=== PATIENT | female | born 1990 | race Caucasian/White ===

== ENCOUNTER 2020-12-25 21:13 | Emergency (ER) | payer OTHER, SELFPAY ==
--- NOTE | ~2020-12-25 | CT_ITS ---
EXAMINATION: CT ABDOMEN AND PELVIS WITH CONTRAST CLINICAL INFORMATION: Abdominal pain and mucus stools. COMPARISON: None TECHNIQUE: Multidetector volumetric images were obtained from the superior aspect of the liver through the pubic symphysis following administration 85 mL of Omnipaque 350 intravenous contrast. Sagittal and coronal reformatted images were obtained on the technologist's workstation. Oral contrast: No This CT examination was performed using dose optimization techniques as appropriate, variously including the following: *Automated exposure control *Adjustment of mA and/or kV according to patient size (this includes techniques or standardized protocols for targeted exams where dose is matched to indication/reason for exam; i.e. extremities or head) *Use of iterative reconstruction technique DLP: 587 mGy-cm FINDINGS: LUNG BASES: The visualized lung bases are unremarkable. LIVER, GALLBLADDER, AND BILIARY TREE: The liver is normal in size, shape, and attenuation. No focal hepatic lesion or biliary ductal dilatation is present. The gallbladder is unremarkable with no evidence of radiopaque gallstones, gallbladder wall thickening, or obvious pericholecystic inflammatory changes. PANCREAS: Unremarkable. SPLEEN: Unremarkable. ADRENAL GLANDS: Unremarkable. KIDNEYS AND URETERS: The kidneys are normal in size, shape, and attenuation. No hydronephrosis, hydroureter, or calculi seen. No perinephric stranding. BLADDER: Unremarkable. GASTROINTESTINAL TRACT: The small and large bowel are unremarkable. The appendix is unremarkable. ABDOMINAL WALL: Small fat-containing umbilical hernia. LYMPH NODES: Normal. VASCULAR: Unremarkable. PELVIC VISCERA: Uterus and adnexa unremarkable. OSSEOUS STRUCTURES: Unremarkable. CT/CT abdomen pelvis w con IMPRESSION: No significant abnormality.
[2020-12-25 21:32] VITALS: BP 152/80; PULSE 114; RESP 18; TEMP 37.2; O2SAT 99; BMI 33.6
--- NOTE | 2020-12-25 23:05 | ED.ANXIETY ---
HPI - Anxiety General Chief Complaint: Anxiety Stated Complaint: Anxiety Time Seen by Provider: 12/25/20 22:55 Source: patient and family Mode of arrival: ambulatory Limitations: no limitations History of Present Illness MD complaint: anxiety and other (vomiting, mucousy stools) Onset (ago): day(s) (1) Symptoms: other (anxiety, panic attacks, vomiting) Severity: moderate Quality: intermittent Place: home History of similar episodes: Yes Provoking factors: emotional stress Relieving factors: nothing Exacerbating factors: thinking about event Associated symptoms: diaphoresis and nausea/vomiting Related Data Home Medications Medication Instructions Recorded Confirmed alcohol swabs 0 pad TOPICAL DIRECTED 08/31/20 citalopram 40 mg tablet 40 mg PO DAILY 08/31/20 famotidine 20 mg tablet 20 mg PO DAILY 08/31/20 fluticasone propionate 50 1 spray INTRANASAL DAILY 08/31/20 mcg/actuation nasal spray,suspension lorazepam 1 mg tablet 1 mg PO DAILY PRN 08/31/20 needle (disp) 18 G 18 gauge x 1 #1000 08/31/20 1/2 needle (disp) 22 G 22 gauge x 1 #1000 08/31/20 12 needle (disp) 25 gauge 25 gauge x #1000 08/31/20 5/8 prednisone 20 mg tablet 20 mg PO BID 08/31/20 sodium chloride 0.65 % nasal spray 2 spray INTRANASAL Q3H 08/31/20 aerosol syringe (disposable) 1 mL #1000 08/31/20 testosterone cypionate 200 mg/mL 100 mg TOPICAL QWEEK 08/31/20 intramuscular oil Previous Rx's Medication Instructions Recorded polyethylene glycol 3350 17 gram 17 g PO DAILY PRN 30 Days #30 08/31/20 oral powder packet (Miralax) Allergies Allergy/AdvReac Type Severity Reaction Status Date / Time No Known Allergies Allergy Verified 12/25/20 21:32 Review of Systems Review of Systems: Constitutional : No Weight loss, No Fever, No Chills ENT/Mouth : No sore throat, No Rhinorrhea Eyes: No Swelling, No Redness Cardiovascular : No Chest Pain, No SOB, NoEdema Respiratory : No Cough, No Sputum, No Wheezing Gastrointestinal : Positive Nausea, Positive Vomiting, positive Diarrhea, no abdominal Pain, No Hematochezia, No Melena, pos mucousy stools Genitourinary : No Dysuria, No Urinary Frequency, No Hematuria, No Urgency Musculoskeletal : No joint pain, No Myalgias, No Joint Swelling Skin : No Skin Lesions, No rash Neuro : No Weakness, No Numbness, No Dizziness, No Headache Psych : No Anxiety/Panic, No Depression Heme/Lymph: No Bruising, No Lymphadenopathy Endocrine : No Polyuria, No Polydipsia All other systems reviewed and are negative. [facility] Past Medical History Attestation statement: The following information was validated with the patient. Medical History Anxiety Asperger syndrome Depression Social History Social History Housing: House Alcohol intake: never Patient Tobacco Use Status: Never used Tobacco Use of substances other than those prescribed or required for medical reasons: Yes Substance Use Type: Marijuana Substance Use Frequency: Daily Last Used Substance: Just Prior to Admission Advance Directives: No Advance Directives Information Provided: Yes Patient : No Current occupational status: unemployed Physical Exam Vital Signs: Vital Signs: Last Vital Signs Temp 98.9 F 12/26/20 00:00 Pulse 98 12/26/20 00:00 Resp 16 12/26/20 00:00 BP 129/59 L 12/26/20 00:00 Pulse Ox 99 12/26/20 00:00 Body Mass Index 33.6 Appearance: Alert. Oriented X3. No acute distress. Eyes: Pupils equal, round and reactive to light. ENT: Pharynx normal. Neck: Normal inspection. Neck supple. CVS: Normal heart rate and rhythm. Pulses normal. Respiratory: No respiratory distress. Breath sounds normal. Abdomen: Soft and non-tender. Rectal: small fissure no bleeding noted Skin: Skin warm and dry. Normal skin color. Normal skin turgor. Extremities: No lower extremity edema. No calf ttp Neuro: Oriented X 3. No motor deficit. No sensory deficit. Course Course Course Narrative: signed out to Dr. Maki pending images H/H stable MDM - Anxiety MDM Narrative Medical decision making narrative: 30 yo male with anxiety and has appointment in January for colonoscopy given chronic complaints of mucousy stools and rectal prolapse - at this time has severe anxiety causing n/v this is not unusual for the patient. At this time labs, IVF, IV ativan for anxiety. If no improvement will refer to crisis team for possible anxiety Lab Data Result diagrams: 12/25/20 23:49 12/25/20 23:49 Labs: Lab Results 12/25/20 12/25/20 12/25/20 Range/Units 23:49 23:49 23:49 WBC 13.4 H (4.8-10.8) X10*3/uL RBC 5.27 (4.20-5.50) X10*6/uL Hgb 16.1 H (12.0-16.0) g/dl Hct 46.0 (37-47) % MCV 87.3 (80-98) fL MCH 30.6 (27.0-33.0) pg MCHC 35.0 (31.0-35.0) g/dl RDW 12.7 (11.0-16.0) % Plt Count 280 (160-400) X10*3/uL MPV 9.5 (9.4-12.3) fL Immature Gran % (Auto) 0.3 (0.0-0.4) % Neut % (Auto) 81.7 H (45-73) % Lymph % (Auto) 9.6 L (20-40) % [place] % (Auto) 8.2 (2-11) % Eos % (Auto) 0.0 (0-4) % Baso % (Auto) 0.2 (0-2) % Lymph # (Auto) 1.3 (1.2-4.9) X10*3/uL [place] # (Auto) 1.1 (0.1-1.2) X10*3/uL Eos # (Auto) 0.0 (0.0-0.4) X10*3/uL Baso # (Auto) 0.0 (0.0-0.2) X10*3/uL Abs Immat Gran (auto) 0.04 H (0.00-0.03) X10*3/uL Absolute Neuts (auto) 10.9 H (2.0-8.3) X10*3/uL Absolute Nucleated RBC 0.000 (0.0-0.012) X10*3/uL Nucleated RBC % (auto) 0.0 (0.0-0.2) /100WBC Sodium 140 (135-145) mmol/L Potassium 3.9 (3.3-5.1) mmol/L Chloride 105 (96-108) mmol/L Carbon Dioxide 25 (22-29) mmol/L Anion Gap 14 (12-20) BUN 9 (9-16) mg/dL Creatinine 0.88 (0.5-1.4) mg/dL Estim Creat Clear Calc 98.1 Estimated GFR > 60 Random Glucose 95 (60-115) mg/dL Calcium 10.0 (8.4-10.2) mg/dL Magnesium 1.9 (1.6-2.6) mg/dL Total Bilirubin 0.8 (0.0-1.0) mg/dL Direct Bilirubin 0.2 (0.0-0.5) mg/dL AST 22 (5-31) U/L ALT 14 (0-31) U/L Alkaline Phosphatase 88 (39-117) U/L C-Reactive Protein 0.32 (< or = 0.50) mg/dL Total Protein 7.2 (6.5-8.0) g/dL Albumin 4.3 (3.5-5.0) g/dL Lipase 44 (8-78) U/L Urine Color Urine Appearance Urine pH (5.0-8.0) Ur Specific [place] (1.005-1.025) Urine Protein (NEG-TRACE) MG/DL Urine Glucose (UA) (NEG) MG/DL Urine Ketones (NEG) MG/DL Urine Blood (NEG) Urine Nitrite (NEG) Ur Leukocyte Esterase (NEG) Urine RBC (0) /HPF Urine WBC (0-4) /HPF Ur Squamous Epith Cells /LPF Urine Bacteria /LPF Urine Mucus /LPF Stool Occult Blood POSITIVE (NEGATIVE) COVID-19 (MARCUS) (Negative) COVID-19 Clin Com 12/26/20 12/26/20 Range/Units 00:11 01:11 WBC (4.8-10.8) X10*3/uL RBC (4.20-5.50) X10*6/uL Hgb (12.0-16.0) g/dl Hct (37-47) % MCV (80-98) fL MCH (27.0-33.0) pg MCHC (31.0-35.0) g/dl RDW (11.0-16.0) % Plt Count (160-400) X10*3/uL MPV (9.4-12.3) fL Immature Gran % (Auto) (0.0-0.4) % Neut % (Auto) (45-73) % Lymph % (Auto) (20-40) % [place] % (Auto) (2-11) % Eos % (Auto) (0-4) % Baso % (Auto) (0-2) % Lymph # (Auto) (1.2-4.9) X10*3/uL [place] # (Auto) (0.1-1.2) X10*3/uL Eos # (Auto) (0.0-0.4) X10*3/uL Baso # (Auto) (0.0-0.2) X10*3/uL Abs Immat Gran (auto) (0.00-0.03) X10*3/uL Absolute Neuts (auto) (2.0-8.3) X10*3/uL Absolute Nucleated RBC (0.0-0.012) X10*3/uL Nucleated RBC % (auto) (0.0-0.2) /100WBC Sodium (135-145) mmol/L Potassium (3.3-5.1) mmol/L Chloride (96-108) mmol/L Carbon Dioxide (22-29) mmol/L Anion Gap (12-20) BUN (9-16) mg/dL Creatinine (0.5-1.4) mg/dL Estim Creat Clear Calc Estimated GFR Random Glucose (60-115) mg/dL Calcium (8.4-10.2) mg/dL Magnesium (1.6-2.6) mg/dL Total Bilirubin (0.0-1.0) mg/dL Direct Bilirubin (0.0-0.5) mg/dL AST (5-31) U/L ALT (0-31) U/L Alkaline Phosphatase (39-117) U/L C-Reactive Protein (< or = 0.50) mg/dL Total Protein (6.5-8.0) g/dL Albumin (3.5-5.0) g/dL Lipase (8-78) U/L Urine Color YELLOW Urine Appearance HAZY Urine pH >= 9.0 H (5.0-8.0) Ur Specific [place] 1.010 (1.005-1.025) Urine Protein 2+ H (NEG-TRACE) MG/DL Urine Glucose (UA) NEG (NEG) MG/DL Urine Ketones 15 (NEG) MG/DL Urine Blood NEG (NEG) Urine Nitrite NEG (NEG) Ur Leukocyte Esterase 1+ H (NEG) Urine RBC 0-2 (0) /HPF Urine WBC 15-29 H (0-4) /HPF Ur Squamous Epith Cells 2+ /LPF Urine Bacteria 2+ /LPF Urine Mucus 1+ /LPF Stool Occult Blood (NEGATIVE) COVID-19 (MARCUS) Negative (Negative) COVID-19 Clin Com See Note Discharge Plan Discharge Clinical Impression: Anxiety Vomiting Qualifiers: Vomiting type: unspecified Vomiting Intractability: non-intractable Nausea presence: with nausea Qualified Code(s): R11.2 - Nausea with vomiting, unspecified Prescriptions: No Action citalopram 40 mg tablet 40 mg PO DAILY RF: 0 testosterone cypionate 200 mg/mL oil 100 mg topical QWEEK RF: 0 (DME) BD Regular [place] 18 gauge x 1 1/2 needle See Rx Instructions ea .ROUTE .MEDSUPPLY Qty: 1000 RF: 0 (DME) BD Regular [place] 25 gauge x 5/8 needle See Rx Instructions ea .ROUTE .MEDSUPPLY Qty: 1000 RF: 0 (DME) BD Luer-Kathya Syringe 1 mL syringe See Rx Instructions ea .ROUTE DIRECTED Qty: 1000 RF: 0 lorazepam 1 mg tablet 1 mg PO DAILY PRNRF: 0 alcohol swabs Pads, Medicated 0 pad topical DIRECTED RF: 0 fluticasone propionate 50 mcg/actuation spray,suspension 1 spray intranasal DAILY RF: 0 famotidine 20 mg tablet 20 mg PO DAILY RF: 0 (DME) BD Regular [place] 22 gauge x 1 1/2 needle See Rx Instructions ea IM DIRECTED Qty: 1000 RF: 0 sodium chloride 0.65 % aerosol,spray 2 spray intranasal Q3H RF: 0 prednisone 20 mg tablet 20 mg PO BID RF: 0 polyethylene glycol 3350 [Miralax] 17 gram powder in packet 17 g PO DAILY PRN (Reason: constipation) 30 Days Qty: 30 RF: 1
[2020-12-26] VITALS: BP 129/59; PULSE 98; RESP 16; TEMP 37.2; O2SAT 99
[2020-12-26 00:03] LABS: MANUAL DIFF FLAG NO
[2020-12-26 00:05] LABS: Basophils Percent Auto 0.2 % (0-2); Hemoglobin 16.1 g/dl (12.0-16.0); Imm Gran Abs Auto 0.04 X10*3/uL (0.00-0.03); Imm Gran Pct Auto 0.3 % (0.0-0.4); Lymphocytes Absolute Auto 1.3 X10*3/uL (1.2-4.9); Lymphocytes Percent Auto 9.6 % (20-40); Mean Corpuscular Hemoglobin 30.6 pg (27.0-33.0); Mean Corpuscular Volume 87.3 fL (80-98); Mean Platelet Volume 9.5 fL (9.4-12.3); Monocytes Absolute Auto 1.1 X10*3/uL (0.1-1.2); Monocytes Percent Auto 8.2 % (2-11); Neutrophils Absolute Auto 10.9 X10*3/uL (2.0-8.3); Neutrophils Percent Auto 81.7 % (45-73); Platelet Count 280 X10*3/uL (160-400); Red Blood Count 5.27 X10*6/uL (4.20-5.50); Red Cell Distribution Width 12.7 % (11.0-16.0); White Blood Count 13.4 X10*3/uL (4.8-10.8)
[2020-12-26] MEDS: 0.9 % Sodium Chloride 1,000 ML 999 ML IVCONT (00:08)
[2020-12-26] MEDS: ondansetron HCL 4 MG/2 ML VIAL IVPUSH (00:08)
[2020-12-26] MEDS: LORazepam 2 MG/ML VIAL 1 MG IVPUSH (00:08)
[2020-12-26 00:21] LABS: OBS Int Ctl Valid YES; OBS1 POSITIVE (NEGATIVE)
[2020-12-26 00:41] LABS: Alanine Aminotransferase 14 U/L (0-31); Albumin Level 4.3 g/dL (3.5-5.0); Alkaline Phosphatase 88 U/L (39-117); Anion Gap 14 (12-20); Aspartate Amino Transferase 22 U/L (5-31); Bilirubin Direct 0.2 mg/dL (0.0-0.5); Bilirubin Total 0.8 mg/dL (0.0-1.0); Blood Urea Nitrogen 9 mg/dL (9-16); C Reactive Protein 0.32 mg/dL (< or = 0.50); Carbon Dioxide 25 mmol/L (22-29); Chloride 105 mmol/L (96-108); Creatinine Clr Calc Pharmacy 98.1; Estimated Glomerular Filt Rate > 60; Glucose Random 95 mg/dL (60-115); Lipase 44 U/L (8-78); Magnesium 1.9 mg/dL (1.6-2.6); Potassium 3.9 mmol/L (3.3-5.1); Sodium 140 mmol/L (135-145); Total Protein 7.2 g/dL (6.5-8.0)
[2020-12-26 00:42] LABS: COVID-19 Test Negative (Negative)
[2020-12-26 01:18] LABS: Appearance Urine HAZY; Color Urine YELLOW; Glucose Urine UA NEG (NEG); Leukocyte Esterase Urine 1+ (NEG); Nitrite Urine NEG (NEG); PH >= 9.0 (5.0-8.0); UACC Culture Trigger YES; Urine Blood NEG (NEG); Urine Ketones 15 MG/DL (NEG)
[2020-12-26 01:19] LABS: Urine Protein 2+ MG/DL (NEG-TRACE)
[2020-12-26 01:43] LABS: Bacteria Urine 2+ /LPF; Mucus Urine 1+ /LPF; RBC Urine 0-2 /HPF (0); Squamous Epithelial Cell Urine 2+ /LPF
[2020-12-26] MEDS: iohexoL 350 MG/ML 100 ML INFUS..BTL 85 ML IV (02:13)
[2020-12-26] MEDS: Magnesium Hydrox/Alum Hydrox 30 ML ORAL.SUSP 15 ML PO (02:16)
[2020-12-26] MEDS: 0.9 % Sodium Chloride 1,000 ML 999 ML IV (02:17)
[2020-12-26 02:28] VITALS: BP 101/59; PULSE 88; RESP 16; TEMP 36.9; O2SAT 96
== END 2020-12-26 03:35 | disposition home or self-care (01) ==
PROVIDERS: Emergency Provider Emergency Medicine; PCP Hospitalist
DX: F41.1 Generalized anxiety disorder (principal); R61 Generalized hyperhidrosis; R11.2 Nausea with vomiting, unspecified; Z20.822 Contact with and (suspected) exposure to COVID-19; Z79.899 Other long term (current) drug therapy
CPT/HCPCS: 36415; 74177; 80048; 80076; 81001; 82272; 83690; 83735; 85025; 86140; 87086; 87635; 96361; 96374; 96375; 99284; J2060; J2405; Q9967

== ENCOUNTER 2021-01-12 11:23 | Outpatient (REF) | payer OTHER, SELFPAY | END 2021-01-12 11:24 | disposition home or self-care (01) | LOC: HO.WFDLDS 11:23 | PROVIDERS: PCP Hospitalist; Visit Provider Hospitalist | DX: Z13.89 Encounter for screening for other disorder (principal) | CPT/HCPCS: 36415; 85027 ==

== ENCOUNTER 2021-01-13 09:13 | Outpatient (REF) | payer OTHER, SELFPAY ==
[2021-01-13 12:14] LABS: Hematocrit 46.3 % (37.0-47.0); Hemoglobin 15.8 g/dl (12.0-16.0); Mean Corpuscular HGB Conc 34.1 g/dl (31.0-35.0); Mean Platelet Volume 9.5 fL (9.4-12.3); Platelet Count 319 X10*3/uL (160-400); Red Blood Count 5.09 X10*6/uL (4.20-5.50); Red Cell Distribution Width 12.4 % (11.0-16.0); White Blood Count 9.2 X10*3/uL (4.8-10.8)
== END 2021-01-13 09:14 | disposition home or self-care (01) ==
LOC: HO.WFDLDS 09:13
PROVIDERS: Visit Provider Hospitalist
DX: Z00.00 Encounter for general adult medical examination without abnormal findings (principal)
CPT/HCPCS: 36415; 85027

== ENCOUNTER → 2021-01-15 11:13 | Outpatient (BNVA) | payer OTHER, SELFPAY | PROVIDERS: PCP Hospitalist; Referring Provider Hospitalist; Visit Provider Internal Medicine Gastroenterology | DX: K21.9 Gastro-esophageal reflux disease without esophagitis (principal); K59.01 Slow transit constipation | CPT/HCPCS: 99202 ==

== ENCOUNTER 2021-06-01 11:40 | Day surgery (SDC) | payer OTHER, SELFPAY ==
[2021-05-28 09:34] VITALS: BMI 32.4
--- NOTE | 2021-05-31 12:23 | HO.ANESPROP2 ---
Documented by User: Milagros Jackson NP 05/31/21 12:24 HPI - Anesthesia Eval Consult details Narrative: Fab - He/Him 30yo (F to) M for Upper Endoscopy and Colonoscopy [facility] Active Problems Active Problems: All Active Problems (Updated 05/28/21 @ 09:33 by Karen Tom RN) 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 (Acute) Rectal prolapse (Acute) Mixed anxiety and depressive disorder (Acute) Chronic GERD (Acute) Constipation by delayed colonic transit (Acute) Headache, tension type, episodic (Acute) Migraine headache without aura (Acute) Neck tightness (Acute) Past Medical History Medical History Anxiety Asperger syndrome Depression GERD (gastroesophageal reflux disease) Family History Family History Father COPD (chronic obstructive pulmonary disease) Diabetes Mother Family history of thyroid problem Paternal Aunt Skin cancer Paternal Uncle Skin cancer Surgical History Surgical History Hx of tonsillectomy Hx of wisdom tooth extraction No pertinent past surgical history Social History Social History Housing: House Alcohol intake: never Patient Tobacco Use Status: Never used Tobacco e-Cigarette/Vaping Use: Never Used Second Hand Smoke Exposure: Yes Use of substances other than those prescribed or required for medical reasons: Yes Substance Use Type: Marijuana Substance Use Frequency: Daily Are you DNR?: No Advance Directives: No Advance Directives Information Provided: Yes service: No Current occupational status: unemployed Cognitive needs: No Hearing needs: No Vision needs: No Meds Allergies Allergy/AdvReac Type Severity Reaction Status Date / Time No Known Allergies Allergy Verified 06/01/21 12:04 Home Medications Medication Instructions Recorded Confirmed Last Taken Type alcohol swabs 0 pad TOPICAL DIRECTED 08/31/20 01/12/21 Unknown History citalopram 40 mg tablet 40 mg PO DAILY 08/31/20 01/12/21 Unknown History fluticasone propionate 50 1 spray INTRANASAL DAILY 08/31/20 01/12/21 Unknown History mcg/actuation nasal spray,suspension lorazepam 1 mg tablet 1 mg PO DAILY PRN 08/31/20 01/12/21 Unknown History needle (disp) 18 G 18 gauge x 1 #1000 ea 08/31/20 01/12/21 Unknown History 1/2 needle (disp) 22 G 22 gauge x 1 #1000 ea 08/31/20 01/12/21 Unknown History 1/2 needle (disp) 25 gauge 25 gauge x #1000 ea 08/31/20 01/12/21 Unknown History 5/8 sodium chloride 0.65 % nasal spray 2 spray INTRANASAL Q3H 08/31/20 01/12/21 Unknown History aerosol syringe (disposable) 1 mL #1000 ea 08/31/20 01/12/21 Unknown History testosterone cypionate 200 mg/mL 100 mg TOPICAL QWEEK 08/31/20 01/12/21 Unknown History intramuscular oil quetiapine 25 mg tablet 25 mg PO BID PRN tab 12/29/20 01/12/21 Unknown History Exam Exam Date and Time: May 31, 2021 1223 Height,Weight and Vital Signs: Height 5 ft 3 in Weight 83.007 kg Pertinent Lab Results Pertinent Lab Results: Laboratory Tests 12/25/20 01/13/21 23:49 09:16 WBC 9.2 Hgb 15.8 Hct 46.3 Plt Count 319 Sodium 140 Potassium 3.9 Chloride 105 Carbon Dioxide 25 BUN 9 Creatinine 0.88 Narrative Narrative: EKG 01/2021 SR with 1st Deg AV block @ 80 Assessment and Plan Assessment Anesthesia Assessment: Chart Reviewed Documented by User: Pam Crane MD 06/01/21 15:09 [facility] Past Medical History Medical History Anxiety Asperger syndrome Depression GERD (gastroesophageal reflux disease) Functional capacity: independent ambulation Patient : No Family History Family History Father COPD (chronic obstructive pulmonary disease) Diabetes Mother Family history of thyroid problem Paternal Aunt Skin cancer Paternal Uncle Skin cancer Family history of problems with anesthesia: No Surgical History Surgical History Hx of tonsillectomy Hx of wisdom tooth extraction No pertinent past surgical history History of Problems with Anesthesia: Yes (Nausea) Social History Social History Housing: House Alcohol intake: never Patient Tobacco Use Status: Never used Tobacco e-Cigarette/Vaping Use: Never Used Second Hand Smoke Exposure: Yes Use of substances other than those prescribed or required for medical reasons: Yes Substance Use Type: Marijuana Substance Use Frequency: Daily Are you DNR?: No Advance Directives: No Advance Directives Information Provided: Yes service: No Current occupational status: unemployed Cognitive needs: No Hearing needs: No Vision needs: No Meds Allergies Allergy/AdvReac Type Severity Reaction Status Date / Time No Known Allergies Allergy Verified 06/01/21 12:04 Home Medications Medication Instructions Recorded Confirmed Last Taken Type alcohol swabs 0 pad TOPICAL DIRECTED 08/31/20 01/12/21 Unknown History citalopram 40 mg tablet 40 mg PO DAILY 08/31/20 01/12/21 Unknown History fluticasone propionate 50 1 spray INTRANASAL DAILY 08/31/20 01/12/21 Unknown History mcg/actuation nasal spray,suspension lorazepam 1 mg tablet 1 mg PO DAILY PRN 08/31/20 01/12/21 Unknown History needle (disp) 18 G 18 gauge x 1 #1000 08/31/20 01/12/21 Unknown History 1/2 needle (disp) 22 G 22 gauge x 1 #1000 08/31/20 01/12/21 Unknown History 1/2 needle (disp) 25 gauge 25 gauge x #1000 08/31/20 01/12/21 Unknown History 5/8 sodium chloride 0.65 % nasal spray 2 spray INTRANASAL Q3H 08/31/20 01/12/21 Unknown History aerosol syringe (disposable) 1 mL #1000 08/31/20 01/12/21 Unknown History testosterone cypionate 200 mg/mL 100 mg TOPICAL QWEEK 08/31/20 01/12/21 Unknown History intramuscular oil quetiapine 25 mg tablet 25 mg PO BID PRN tab 12/29/20 01/12/21 Unknown History Exam Airway Mallampati Class: III TM Dist: >3cm Neck ROM: Full Heart: RRR Lungs: CTA Assessment and Plan Final Anesthetic Review Family History of Problems with Anesthesia: No History of Problems with Anesthesia: Yes (Nausea) NPO: Yes ASA Class: II Final Preanesthetic Review: No Changes in Pt Med Stat, Meds/Allgs Chart Reviewed, Consent Obtained/Reviewed and Anes Risks/Benef Reviewed Patient Risk: Low Procedure Risk: Low Anesthetic Plan Anesthetic Plan: MAC: Disposition: Standard PACU
[2021-06-01] VITALS (12 sets, daily range): BP systolic 90–131; BP diastolic 42–82; PULSE 63–91; RESP 15–19; TEMP 36.2–37.2; O2SAT 98–100
[2021-06-01 12:02] LABS: UPreg QC Valid YES; Urine Pregnancy NEGATIVE (NEGATIVE)
[2021-06-01] MEDS: Lactated Ringers 1,000 ML 100 ML IVCONT (12:23)
--- NOTE | 2021-06-01 12:57 | MHC.SHP ---
Pre-Procedural Eval Section A Date of Service: 06/01/21 Section B Chief Complaint: GERD, Constipation by delayed colonic transit Relevant Family History (Specify if Yes): No Relevant Social History: Other (specify) (THC) Present Medications: see Short Stay Collaborative assessment Medical History: Significant History (Anxiety Asperger syndrome Depression GERD (gastroesophageal reflux disease)) History of Previous Operations: No relevant previous surgery Allergies: Allergies Allergy/AdvReac Type Severity Reaction Status Date / Time No Known Allergies Allergy Verified 06/01/21 12:04 Review of Systems Sugical H&P ROS: Negative: Constitution, Cardiovascular, Respiratory, Neurological, Psychiatric, Hem-Onc, Allergic/Immunologic, Gastrointestinal, Genitourinary, Musculoskeletal, Integumentary, Endocrine and Eyes/Ears/Nose/Throat Exam Surgical H&P Exam: Normal: HEENT, Normal: Heart, Normal: Lungs, Normal: Extremities, Normal: Abdomen, Normal: Skin and Normal: Neurological Plan Diagnosis/Plan: Unchanged I have reviewed the history and physical and performed a pertinent physical examination on my patient. No changes have occurred unless specified.
--- NOTE | 2021-06-01 15:10 | HO.POSTANES ---
Post Anesthesia Evaluation Post Anesthesia Evaluation Vital Signs: Vital Signs Temp Pulse Resp BP Pulse Ox 06/01/21 14:53 83 15 107/58 L 100 06/01/21 14:38 74 18 106/60 100 06/01/21 14:33 63 18 100/53 L 100 06/01/21 14:28 73 18 99/51 L 100 06/01/21 14:23 97.1 F 88 16 90/42 L 100 06/01/21 12:12 98.9 F 86 16 131/82 98 Anesthesia: Monitored and General Endotracheal-GETA Mental Status: Awake Pain Control: Satisfactory Nausea/Vomiting: None Hydration: Adequate Anesthesia-Related Issues: No Anes. Related Issues
--- NOTE | 2021-06-01 15:42 | PM.EVENT ---
Event Note Date of Service: 06/01/21 Event Note: MAC was commenced and scope was passed, but patient was gagging and agitated, attempted again but then patient went into bronchospasm, and stopped breathing required intubation and advanced air way support to get O2 levels up. Eventually O2 stabilized and breathing improved, he did admit to smoking THC yesterday which may have played a role. Procedures were aborted and per anesthesia rebook with [facility]
== END 2021-06-01 16:38 | disposition home or self-care (01) ==
PROVIDERS: Nurse Practitioner; PCP Hospitalist; Visit Provider Internal Medicine Gastroenterology
PROC: (CPT 43235; principal; 2021-06-01 13:50)
DX: K21.9 Gastro-esophageal reflux disease without esophagitis (principal); J95.88 Other intraoperative complications of respiratory system, not elsewhere classified; R06.89 Other abnormalities of breathing; R29.2 Abnormal reflex; J98.01 Acute bronchospasm; K59.01 Slow transit constipation; K62.3 Rectal prolapse; F64.0 Transsexualism; F84.5 Asperger's syndrome; F41.1 Generalized anxiety disorder; F32.9 Major depressive disorder, single episode, unspecified; F12.90 Cannabis use, unspecified, uncomplicated; Z79.899 Other long term (current) drug therapy; Z53.8 Procedure and treatment not carried out for other reasons
CPT/HCPCS: 43235; 31500; 81025; J0131; J0330; J2405

== ENCOUNTER 2021-11-04 12:29 | Outpatient (REF) | payer OTHER, SELFPAY ==
[2021-11-04 13:45] LABS: Hematocrit 49.6 % (37.0-47.0); Hemoglobin 16.8 g/dl (12.0-16.0); Mean Corpuscular HGB Conc 33.9 g/dl (31.0-35.0); Mean Corpuscular Hemoglobin 30.5 pg (27.0-33.0); Mean Platelet Volume 9.6 fL (9.4-12.3); Platelet Count 281 X10*3/uL (160-400); Red Blood Count 5.51 X10*6/uL (4.20-5.50); Red Cell Distribution Width 12.4 % (11.0-16.0); White Blood Count 8.1 X10*3/uL (4.8-10.8)
[2021-11-04 14:20] LABS: Alanine Aminotransferase 11 U/L (0-31); Albumin Level 4.4 g/dL (3.5-5.0); Alkaline Phosphatase 84 U/L (39-117); Anion Gap 14 (12-20); Aspartate Amino Transferase 18 U/L (5-31); Bilirubin Total 0.7 mg/dL (0.0-1.0); Blood Urea Nitrogen 8 mg/dL (9-16); Calcium 9.5 mg/dL (8.4-10.2); Carbon Dioxide 29 mmol/L (22-29); Chloride 102 mmol/L (96-108); Cholesterol 195 mg/dL; Estimated Glomerular Filt Rate > 60; Glucose Fasting 80 mg/dL (60-99); HDL Cholesterol 37 mg/dL; LDL Cholesterol Calculated 133 mg/dl; Potassium 4.6 mmol/L (3.3-5.1); Sodium 140 mmol/L (135-145); Total Protein 7.2 g/dL (6.5-8.0); Triglycerides 128 mg/dL
[2021-11-04 14:43] LABS: TSH reflex Free T4 4.18 uIU/mL (0.32-4.0)
[2021-11-04 15:18] LABS: Free T4 (Free Thyroxine) 1.08 ng/dL (0.71-1.85)
== END 2021-11-04 12:30 | disposition home or self-care (01) ==
LOC: HO.WFDLDS 12:29
PROVIDERS: Visit Provider Hospitalist
DX: Z00.00 Encounter for general adult medical examination without abnormal findings (principal)
CPT/HCPCS: 36415; 80053; 80061; 84439; 84443; 85027

== ENCOUNTER 2022-02-21 15:29 | Outpatient (REF) | payer OTHER, SELFPAY ==
--- NOTE | ~2022-02-21 | XR_ITS ---
EXAMINATION: XR FOREARM, RIGHT CLINICAL INFORMATION: M79.631 - Pain in right forearm COMPARISON: None TECHNIQUE: AP and lateral views of the right forearm were obtained. FINDINGS: Normal bony mineralization. No acute or healing fracture, dislocation, destructive process. No periostitis. The ulnar variance is neutral. No visible elbow capsular effusion. XR/XR forearm RT 2V IMPRESSION: Normal right forearm.
== END 2022-02-21 15:30 | disposition home or self-care (01) ==
LOC: HO.HMGCX 15:29
PROVIDERS: PCP Hospitalist; Visit Provider Physician Assistant
DX: M79.631 Pain in right forearm (principal)
CPT/HCPCS: 73090

== ENCOUNTER 2022-04-28 10:22 | Outpatient (REF) | payer OTHER, SELFPAY ==
[2022-04-28 12:02] LABS: Estimated Average Glucose 103 mg/dL; Hemoglobin A1c % 5.2 %
== END 2022-04-28 10:23 | disposition home or self-care (01) ==
LOC: HO.LAB 10:22
PROVIDERS: PCP Hospitalist; Visit Provider Hospitalist
DX: R73.9 Hyperglycemia, unspecified (principal)
CPT/HCPCS: 36415; 83036

== ENCOUNTER 2022-06-29 12:26 | Emergency (ER) | payer MEDICARE, OTHER, MEDICAID, SELFPAY ==
[2022-06-29 12:29] VITALS: BP 147/77; PULSE 106; RESP 18; TEMP 36.7; O2SAT 97; BMI 31.8
--- NOTE | 2022-06-29 12:29 | ED.ABDPAIN ---
HPI - Abdominal Pain General Stated Complaint: gastro issues Related Data Home Medications Medication Instructions Recorded Confirmed alcohol swabs 0 pad topical DIRECTED 08/31/20 06/02/22 citalopram 40 mg tablet 40 mg PO DAILY 08/31/20 06/02/22 fluticasone propionate 50 1 spray intranasal DAILY 08/31/20 06/02/22 mcg/actuation nasal spray,suspension sodium chloride 0.65 % nasal spray 2 spray intranasal Q3H 08/31/20 06/02/22 aerosol testosterone cypionate 200 mg/mL 100 mg topical QWEEK 08/31/20 06/02/22 intramuscular oil Previous Rx's Medication Instructions Recorded polyethylene glycol 3350 17 gram 17 g PO DAILY PRN constipation 30 08/31/20 oral powder packet (Miralax) days #30 ea docusate sodium 100 mg capsule 100 mg PO BID #60 caps 01/15/21 (Colace) peg 3350 240 gram-electrolytes See Rx Instructions PO .COMPLEX 1 01/15/21 22.72 gram-6.72 g-5.84 g powdr for day #4,000 mL soln (Gavilyte-C) omeprazole 40 mg capsule,delayed 40 mg PO DAILY 3 months #90 caps 01/31/22 release simethicone 125 mg chewable tablet 125 mg PO TID PRN abdominal 06/02/22 (Gas Relief (simethicone)) distention #90 tabs Allergies Allergy/AdvReac Type Severity Reaction Status Date / Time No Known Allergies Allergy Verified 06/29/22 12:32 PMFSH Past Medical History Medical History Anxiety Asperger syndrome Depression 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 GERD (gastroesophageal reflux disease) Surgical History Hx of tonsillectomy Hx of wisdom tooth extraction No pertinent past surgical history Family History Family History Father COPD (chronic obstructive pulmonary disease) Diabetes Mother Family history of thyroid problem Paternal Aunt Skin cancer Paternal Uncle Skin cancer Social History Social History Housing: House Alcohol intake: never Patient Tobacco Use Status: Never used Tobacco e-Cigarette/Vaping Use: Never Used Second Hand Smoke Exposure: Yes Substance Use Type: Marijuana service: No Current occupational status: unemployed Cognitive needs: No Hearing needs: No Vision needs: No Course Course Course Narrative: This is a rapid medical exam. deferred additional HPI, ROS, PE to primary provider. 32 yo transgender person with history of anxiety, aspergers here with complaints of alternating diarrhea/constipation, vomiting, feels dehydrated, bleeding hemorrhoid x 4 days. Has had longstanding GI issues per patient. Seen by GI-has upcoming endoscopy Will obtain labs, UA VSS Discharge Plan Discharge Prescriptions: No Action peg 3350-electrolytes [GaviLyte-C] 240-22.72-6.72 -5.84 gram recon soln See Rx Instructions PO .COMPLEX 1 Days Qty: 4000 0RF Rx Instructions: 1 bottle PO As directed prior to colonoscopy; until fecal effluent is clear omeprazole 40 mg capsule,delayed release(DR/EC) 40 mg PO DAILY 90 Days Qty: 90 1RF Rx Instructions: pt is taking citalopram in the pn and takes ppi in the am to avoid interaction citalopram 40 mg tablet 40 mg PO DAILY testosterone cypionate 200 mg/mL oil 100 mg topical QWEEK alcohol swabs Pads, Medicated 0 pad topical DIRECTED fluticasone propionate 50 mcg/actuation spray,suspension 1 spray intranasal DAILY sodium chloride 0.65 % aerosol,spray 2 spray intranasal Q3H polyethylene glycol 3350 [Miralax] 17 gram powder in packet 17 g PO DAILY PRN (Reason: constipation) 30 Days Qty: 30 1RF simethicone [Gas Relief (simethicone)] 125 mg tablet,chewable 125 mg PO TID PRN (Reason: abdominal distention) Qty: 90 2RF docusate sodium [Colace] 100 mg capsule 100 mg PO BID Qty: 60 2RF
[2022-06-29 12:46] LABS: MANUAL DIFF FLAG NO
[2022-06-29 12:48] LABS: Basophils Percent Auto 0.3 % (0-2); Eosinophils Percent Auto 0.3 % (0-4); Hematocrit 48.7 % (37.0-47.0); Hemoglobin 16.6 g/dl (12.0-16.0); Imm Gran Abs Auto 0.02 X10*3/uL (0.00-0.03); Imm Gran Pct Auto 0.2 % (0.0-0.4); Lymphocytes Absolute Auto 1.4 X10*3/uL (1.2-4.9); Lymphocytes Percent Auto 15.6 % (20-40); Mean Corpuscular HGB Conc 34.1 g/dl (31.0-35.0); Mean Corpuscular Volume 88.1 fL (80.0-98.0); Mean Platelet Volume 9.2 fL (9.4-12.3); Monocytes Absolute Auto 0.8 X10*3/uL (0.1-1.2); Monocytes Percent Auto 8.6 % (2-11); Neutrophils Absolute Auto 6.8 x10*3/uL (2.0-8.3); Platelet Count 308 X10*3/uL (160-400); Red Blood Count 5.53 X10*6/uL (4.20-5.50); Red Cell Distribution Width 12.1 % (11.0-16.0)
[2022-06-29 13:04] LABS: Alanine Aminotransferase 13 U/L (0-31); Albumin Level 4.6 g/dL (3.5-5.0); Alkaline Phosphatase 79 U/L (39-117); Anion Gap 12 (12-20); Aspartate Amino Transferase 18 U/L (5-31); Bilirubin Direct 0.2 mg/dL (0.0-0.5); Bilirubin Total 0.9 mg/dL (0.0-1.0); Blood Urea Nitrogen 9 mg/dL (9-16); Calcium 9.7 mg/dL (8.4-10.2); Carbon Dioxide 27 mmol/L (22-29); Chloride 105 mmol/L (96-108); Creatinine Clr Calc Pharmacy 74.3; Estimated Glomerular Filt Rate 57; Glucose Random 93 mg/dL (60-115); Lipase 13 U/L (8-78); Potassium 4.1 mmol/L (3.3-5.1); Sodium 140 mmol/L (135-145); Total Protein 7.1 g/dL (6.5-8.0)
[2022-06-29 14:38] VITALS: RESP 16
--- NOTE | 2022-06-29 14:56 | PC.NURSE ---
Pt on stretcher, airway open and patent, no obvious signs of distress, no difficulty breathing. A&ox4, skin normal for ethnicity, warm, and dry. Lung sounds clr bilaterally. Heart sounds normal. Bowel sounds present all ramos. No edema noted. Pt complaining of upper abdominal pressure across left and right side. Pt reports diarrhea, nausea, vomiting for past 4 days.
[2022-06-29 15:03] VITALS: BP 126/66; PULSE 74; RESP 16; TEMP 37.2; O2SAT 98
[2022-06-29] MEDS: Ketorolac Tromethamine 30 MG/ML VIAL IVPUSH (15:13)
[2022-06-29] MEDS: ondansetron HCL 4 MG/2 ML VIAL IVPUSH (15:18)
[2022-06-29] MEDS: 0.9 % Sodium Chloride 1,000 ML 999 ML IV (15:18)
[2022-06-29 15:47] LABS: Appearance Urine Cloudy; Color Urine Yellow; Glucose Urine UA Negative (Negative); Leukocyte Esterase Urine Moderate (2+) (Negative); Nitrite Urine Negative (Negative); PH 5.5 (5.0-9.0); Specific Gravity - Urine >= 1.030 (1.005-1.025); UMIC TRIGGER UACC YES; Urine Blood Negative (Negative); Urine Ketones 40 mg/dL (Negative); Urine Protein Trace mg/dL (Neg-Trace)
[2022-06-29 15:49] LABS: UPreg QC Valid YES; Urine Pregnancy NEGATIVE (NEGATIVE)
[2022-06-29 15:50] LABS: Bacteria Urine None Seen (None Seen); Hyaline Casts Urine 0-2 /LPF (0-2); RBC Urine 0-2 /HPF (0-2); UACC Culture Trigger YES; WBC Urine 21-50 /HPF (0-5)
--- NOTE | 2022-06-29 16:13 | ED_ITS ---
HPI - General Adult General Chief complaint: General Medical Stated complaint: gastro issues Time Seen by Provider: 06/29/22 13:57 Related Data Home Medications Medication Instructions Recorded Confirmed alcohol swabs 0 pad topical DIRECTED 08/31/20 06/02/22 citalopram 40 mg tablet 40 mg PO DAILY 08/31/20 06/02/22 fluticasone propionate 50 1 spray intranasal DAILY 08/31/20 06/02/22 mcg/actuation nasal spray,suspension sodium chloride 0.65 % nasal spray 2 spray intranasal Q3H 08/31/20 06/02/22 aerosol testosterone cypionate 200 mg/mL 100 mg topical QWEEK 08/31/20 06/02/22 intramuscular oil Previous Rx's Medication Instructions Recorded polyethylene glycol 3350 17 gram 17 g PO DAILY PRN constipation 30 08/31/20 oral powder packet (Miralax) days #30 ea docusate sodium 100 mg capsule 100 mg PO BID #60 caps 01/15/21 (Colace) peg 3350 240 gram-electrolytes See Rx Instructions PO .COMPLEX 1 01/15/21 22.72 gram-6.72 g-5.84 g powdr for day #4,000 mL soln (Gavilyte-C) omeprazole 40 mg capsule,delayed 40 mg PO DAILY 3 months #90 caps 01/31/22 release simethicone 125 mg chewable tablet 125 mg PO TID PRN abdominal 06/02/22 (Gas Relief (simethicone)) distention #90 tabs ibuprofen 400 mg tablet 400 mg PO Q6H PRN pain #20 tabs 06/29/22 sulfamethoxazole 800 1 tab PO BID #14 tabs 06/29/22 mg-trimethoprim 160 mg tablet (Bactrim DS) Allergies Allergy/AdvReac Type Severity Reaction Status Date / Time No Known Allergies Allergy Verified 06/29/22 12:32 [facility] Past Medical History Medical History Anxiety Asperger syndrome Depression 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 GERD (gastroesophageal reflux disease) Surgical History Hx of tonsillectomy Hx of wisdom tooth extraction No pertinent past surgical history Family History Family History Father COPD (chronic obstructive pulmonary disease) Diabetes Mother Family history of thyroid problem Paternal Aunt Skin cancer Paternal Uncle Skin cancer Social History Social History Housing: House Alcohol intake: never Patient Tobacco Use Status: Never used Tobacco Smoked in Last 30 Days: No e-Cigarette/Vaping Use: Never Used Second Hand Smoke Exposure: Yes Use of substances other than those prescribed or required for medical reasons: Yes Substance Use Type: Marijuana Advance Directives: No service: No Current occupational status: unemployed Cognitive needs: No Hearing needs: No Vision needs: No Physical Exam ED Vital Signs: Vital Signs - 24 hr 06/29/22 12:29 06/29/22 14:38 06/29/22 15:03 Temperature 98.1 F 99.0 F Pulse Rate 106 H 74 Respiratory Rate 18 16 16 Blood Pressure 147/77 H 126/66 Pulse Oximetry 97 98 Oxygen Delivery Method Room Air Room Air BMI result Body Mass Index 31.8 Medications Administered Discontinued Medications Generic Name Dose Route Start Last Admin Trade Name Jagdeep PRN Reason Stop Dose Admin Sodium Chloride 1,000 mls @ 999 mls/hr 06/29/22 14:30 06/29/22 16:32 Ns IV 06/29/22 15:30 Infused .Q1H1M TITI Infusion Ceftriaxone Sodium 1 gm/ 50 mls @ 100 mls/hr 06/29/22 16:14 06/29/22 16:34 Sodium Chloride IV 06/29/22 16:43 100 mls/hr ONCE ONE Administration Ketorolac Tromethamine 30 mg 06/29/22 14:26 06/29/22 15:13 Ketorolac Tromethamine 30 Mg/Ml Vial IVPUSH 06/29/22 14:27 30 mg ONCE ONE Administration Ondansetron HCl 4 mg 06/29/22 14:26 06/29/22 15:18 Ondansetron Hcl 4 Mg/2 Ml Vial IVPUSH 06/29/22 14:27 4 mg ONCE ONE Administration Medical Decision Making Medical Decision Making MDM Narrative: Patient's symptoms been ongoing for the last 4 years. In no acute distress. Patient's urine however was infected. A dose of Rocephin was given. Will give a prescription for Bactrim. Patient's old record reviewed. There is no urine culture noted. Electrolytes are unremarkable. Liver function test was normal. No history of abdominal surgery. [place] the risk of appendicitis very low. Differential Diagnosis Differential Diagnoses: The differential diagnosis associated with the presentation includes Lab Data 06/29/22 12:42 06/29/22 12:42 Labs: Lab Results 06/29/22 06/29/22 06/29/22 Range/Units 12:42 12:42 15:40 WBC 9.0 (4.8-10.8) X10*3/uL RBC 5.53 H (4.20-5.50) X10*6/uL Hgb 16.6 H (12.0-16.0) g/dl Hct 48.7 H (37.0-47.0) % MCV 88.1 (80.0-98.0) fL MCH 30.0 (27.0-33.0) pg MCHC 34.1 (31.0-35.0) g/dl RDW 12.1 (11.0-16.0) % Plt Count 308 (160-400) X10*3/uL MPV 9.2 L (9.4-12.3) fL Immature Gran % (Auto) 0.2 (0.0-0.4) % Neut % (Auto) 75.0 H (45-73) % Lymph % (Auto) 15.6 L (20-40) % [place] % (Auto) 8.6 (2-11) % Eos % (Auto) 0.3 (0-4) % Baso % (Auto) 0.3 (0-2) % Lymph # (Auto) 1.4 (1.2-4.9) X10*3/uL [place] # (Auto) 0.8 (0.1-1.2) X10*3/uL Eos # (Auto) 0.0 (0.0-0.4) X10*3/uL Baso # (Auto) 0.0 (0.0-0.2) X10*3/uL Abs Immat Gran (auto) 0.02 (0.00-0.03) X10*3/uL Absolute Neuts (auto) 6.8 (2.0-8.3) x10*3/uL Absolute Nucleated RBC 0.000 (0.0-0.012) X10*3/uL Nucleated RBC % (auto) 0.0 (0.0-0.2) /100WBC Sodium 140 (135-145) mmol/L Potassium 4.1 (3.3-5.1) mmol/L Chloride 105 (96-108) mmol/L Carbon Dioxide 27 (22-29) mmol/L Anion Gap 12 (12-20) BUN 9 (9-16) mg/dL Creatinine 1.11 (0.5-1.4) mg/dL Estim Creat Clear Calc 74.3 Estimated GFR 57 Random Glucose 93 (60-115) mg/dL Calcium 9.7 (8.4-10.2) mg/dL Total Bilirubin 0.9 (0.0-1.0) mg/dL Direct Bilirubin 0.2 (0.0-0.5) mg/dL AST 18 (5-31) U/L ALT 13 (0-31) U/L Alkaline Phosphatase 79 (39-117) U/L Total Protein 7.1 (6.5-8.0) g/dL Albumin 4.6 (3.5-5.0) g/dL Lipase 13 (8-78) U/L Urine Color Yellow Urine Appearance Cloudy Urine pH 5.5 (5.0-9.0) Ur Specific [place] >= 1.030 H (1.005-1.025) Urine Protein Trace (Neg-Trace) mg/dL Urine Glucose (UA) Negative (Negative) mg/dL Urine Ketones 40 (Negative) mg/dL Urine Blood Negative (Negative) Urine Nitrite Negative (Negative) Ur Leukocyte Esterase Moderate (2+) H (Negative) Urine RBC 0-2 (0-2) /HPF Urine WBC 21-50 H (0-5) /HPF Ur Squamous Epith Cells 3-5 (0-2) /HPF Urine Bacteria None Seen (None Seen) Hyaline Casts 0-2 (0-2) /LPF Urine Test (NEGATIVE) 06/29/22 Range/Units 15:40 WBC (4.8-10.8) X10*3/uL RBC (4.20-5.50) X10*6/uL Hgb (12.0-16.0) g/dl Hct (37.0-47.0) % MCV (80.0-98.0) fL MCH (27.0-33.0) pg MCHC (31.0-35.0) g/dl RDW (11.0-16.0) % Plt Count (160-400) X10*3/uL MPV (9.4-12.3) fL Immature Gran % (Auto) (0.0-0.4) % Neut % (Auto) (45-73) % Lymph % (Auto) (20-40) % [place] % (Auto) (2-11) % Eos % (Auto) (0-4) % Baso % (Auto) (0-2) % Lymph # (Auto) (1.2-4.9) X10*3/uL [place] # (Auto) (0.1-1.2) X10*3/uL Eos # (Auto) (0.0-0.4) X10*3/uL Baso # (Auto) (0.0-0.2) X10*3/uL Abs Immat Gran (auto) (0.00-0.03) X10*3/uL Absolute Neuts (auto) (2.0-8.3) x10*3/uL Absolute Nucleated RBC (0.0-0.012) X10*3/uL Nucleated RBC % (auto) (0.0-0.2) /100WBC Sodium (135-145) mmol/L Potassium (3.3-5.1) mmol/L Chloride (96-108) mmol/L Carbon Dioxide (22-29) mmol/L Anion Gap (12-20) BUN (9-16) mg/dL Creatinine (0.5-1.4) mg/dL Estim Creat Clear Calc Estimated GFR Random Glucose (60-115) mg/dL Calcium (8.4-10.2) mg/dL Total Bilirubin (0.0-1.0) mg/dL Direct Bilirubin (0.0-0.5) mg/dL AST (5-31) U/L ALT (0-31) U/L Alkaline Phosphatase (39-117) U/L Total Protein (6.5-8.0) g/dL Albumin (3.5-5.0) g/dL Lipase (8-78) U/L Urine Color Urine Appearance Urine pH (5.0-9.0) Ur Specific [place] (1.005-1.025) Urine Protein (Neg-Trace) mg/dL Urine Glucose (UA) (Negative) mg/dL Urine Ketones (Negative) mg/dL Urine Blood (Negative) Urine Nitrite (Negative) Ur Leukocyte Esterase (Negative) Urine RBC (0-2) /HPF Urine WBC (0-5) /HPF Ur Squamous Epith Cells (0-2) /HPF Urine Bacteria (None Seen) Hyaline Casts (0-2) /LPF Urine Test NEGATIVE (NEGATIVE) Discharge Plan Discharge Clinical Impression: Urinary tract infection, Abdominal pain Patient Disposition: Home, Self-Care Instructions: Urinary Tract Infection in Women (DC), Abdominal Pain (ED) Prescriptions: New sulfamethoxazole-trimethoprim [Bactrim DS] 800-160 mg tablet 1 tab PO BID Qty: 14 0RF ibuprofen 400 mg tablet 400 mg PO Q6H PRN (Reason: pain) Qty: 20 0RF No Action peg 3350-electrolytes [GaviLyte-C] 240-22.72-6.72 -5.84 gram recon soln See Rx Instructions PO .COMPLEX 1 Days Qty: 4000 0RF Rx Instructions: 1 bottle PO As directed prior to colonoscopy; until fecal effluent is clear omeprazole 40 mg capsule,delayed release(DR/EC) 40 mg PO DAILY 90 Days Qty: 90 1RF Rx Instructions: pt is taking citalopram in the pn and takes ppi in the am to avoid interaction citalopram 40 mg tablet 40 mg PO DAILY testosterone cypionate 200 mg/mL oil 100 mg topical QWEEK alcohol swabs Pads, Medicated 0 pad topical DIRECTED fluticasone propionate 50 mcg/actuation spray,suspension 1 spray intranasal DAILY sodium chloride 0.65 % aerosol,spray 2 spray intranasal Q3H polyethylene glycol 3350 [Miralax] 17 gram powder in packet 17 g PO DAILY PRN (Reason: constipation) 30 Days Qty: 30 1RF simethicone [Gas Relief (simethicone)] 125 mg tablet,chewable 125 mg PO TID PRN (Reason: abdominal distention) Qty: 90 2RF docusate sodium [Colace] 100 mg capsule 100 mg PO BID Qty: 60 2RF Referrals: Alexa Tillman NP [Primary Care Provider] - 2 days Interventions: ED Discharge Assessment Last Done: 06/29/22 17:01 Discharge Date/Time: 06/29/22 17:03
--- NOTE | 2022-06-29 16:17 | ED_ITS ---
HPI - General Adult General Chief complaint: General Medical Stated complaint: gastro issues Time Seen by Provider: 06/29/22 13:57 History of Present Illness HPI narrative: Patient is a 32-year-old transgender person by largest clear female identifies a male did not have surgery to his sexual organs. Presented today with having abdominal pain has been ongoing for the last 4 years. It is not changed from previous. There is no specific pain on urination. There is no fever no chills. Patient is agitated because the symptom has not changed. No cough no congestion or respiratory symptoms. Is not related to food. Patient feels that he has nausea from time to time but is able to have normal bowel movements. Passing gas. No history of abdominal surgery in the past. No history of obstruction in the past. Patient from home. He has a GI appointment in July for endoscopy and colonoscopy. Related Data Home Medications Medication Instructions Recorded Confirmed alcohol swabs 0 pad topical DIRECTED 08/31/20 06/02/22 citalopram 40 mg tablet 40 mg PO DAILY 08/31/20 06/02/22 fluticasone propionate 50 1 spray intranasal DAILY 08/31/20 06/02/22 mcg/actuation nasal spray,suspension sodium chloride 0.65 % nasal spray 2 spray intranasal Q3H 08/31/20 06/02/22 aerosol testosterone cypionate 200 mg/mL 100 mg topical QWEEK 08/31/20 06/02/22 intramuscular oil Previous Rx's Medication Instructions Recorded polyethylene glycol 3350 17 gram 17 g PO DAILY PRN constipation 30 08/31/20 oral powder packet (Miralax) days #30 ea docusate sodium 100 mg capsule 100 mg PO BID #60 caps 01/15/21 (Colace) peg 3350 240 gram-electrolytes See Rx Instructions PO .COMPLEX 1 01/15/21 22.72 gram-6.72 g-5.84 g powdr for day #4,000 mL soln (Gavilyte-C) omeprazole 40 mg capsule,delayed 40 mg PO DAILY 3 months #90 caps 01/31/22 release simethicone 125 mg chewable tablet 125 mg PO TID PRN abdominal 06/02/22 (Gas Relief (simethicone)) distention #90 tabs ibuprofen 400 mg tablet 400 mg PO Q6H PRN pain #20 tabs 06/29/22 sulfamethoxazole 800 1 tab PO BID #14 tabs 06/29/22 mg-trimethoprim 160 mg tablet (Bactrim DS) Allergies Allergy/AdvReac Type Severity Reaction Status Date / Time No Known Allergies Allergy Verified 06/29/22 12:32 Review of Systems 2 Review of Systems: Positive abdominal pain Yes all other systems are reviewed and are negative FOR[facility]LY [facility] Past Medical History Attestation statement: The following information was validated with the patient. Medical History Anxiety Asperger syndrome Depression 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 GERD (gastroesophageal reflux disease) Surgical History Hx of tonsillectomy Hx of wisdom tooth extraction No pertinent past surgical history Family History Family History Father COPD (chronic obstructive pulmonary disease) Diabetes Mother Family history of thyroid problem Paternal Aunt Skin cancer Paternal Uncle Skin cancer Social History Social History Housing: House Alcohol intake: never Patient Tobacco Use Status: Never used Tobacco Smoked in Last 30 Days: No e-Cigarette/Vaping Use: Never Used Second Hand Smoke Exposure: Yes Use of substances other than those prescribed or required for medical reasons: Yes Substance Use Type: Marijuana Advance Directives: No service: No Current occupational status: unemployed Cognitive needs: No Hearing needs: No Vision needs: No Physical Exam ED Vital Signs: Vital Signs - 24 hr 06/29/22 12:29 06/29/22 14:38 06/29/22 15:03 Temperature 98.1 F 99.0 F Pulse Rate 106 H 74 Respiratory Rate 18 16 16 Blood Pressure 147/77 H 126/66 Pulse Oximetry 97 98 Oxygen Delivery Method Room Air Room Air BMI result Body Mass Index 31.8 Appearance: Alert. Oriented X3. No acute distress. Eyes: Pupils equal, round and reactive to light. ENT: Pharynx normal. Neck: Normal inspection. Neck supple. No lymph nodes noted. No crepitus CVS: Normal heart rate and rhythm. Pulses normal. Normal S1 and S2 Respiratory: No respiratory distress. Breath sounds normal. No Wheezing. No rales Abdomen: Soft and nontender. No rigidity. No distention. good BS x4 Skin: Skin warm and dry. Normal skin color. Normal skin turgor. Extremities: No lower extremity edema. Neurovascular intact to all extremities. No Lacerations. No Rash Neuro: Oriented X 3. No motor deficit. No sensory deficit. Moving all extermities. No slurred speech Medications Administered Discontinued Medications Generic Name Dose Route Start Last Admin Trade Name Dequanq PRN Reason Stop Dose Admin Sodium Chloride 1,000 mls @ 999 mls/hr 06/29/22 14:30 06/29/22 15:18 Ns IV 06/29/22 15:30 999 mls/hr .Q1H1M TITI Administration Ketorolac Tromethamine 30 mg 06/29/22 14:26 06/29/22 15:13 Ketorolac Tromethamine 30 Mg/Ml Vial IVPUSH 06/29/22 14:27 30 mg ONCE ONE Administration Ondansetron HCl 4 mg 06/29/22 14:26 06/29/22 15:18 Ondansetron Hcl 4 Mg/2 Ml Vial IVPUSH 06/29/22 14:27 4 mg ONCE ONE Administration Medical Decision Making Medical Decision Making MDM Narrative: Well-appearing no acute distress. Patient's abdominal pain is been ongoing for over 4 years. The pain is similar. His white count is normal. test is negative. No evidence for ectopic . Patient's urine showed a possible UTI. Patient has no history of abdominal surgery. History not consistent with obstruction, abscess, perforation. Patient LFTs are normal. Lipase are normal. No evidence for biliary disease. No evidence for pancreatic disease. Will discharge patient home. Differential Diagnosis Differential Diagnoses: The differential diagnosis associated with the presentation includes Pancreatitis, biliary issues, appendicitis, obstruction, abscess, perforation Lab Data MDM Lab Attestation statement: I reviewed the patient's lab results. 06/29/22 12:42 06/29/22 12:42 Labs: Lab Results 06/29/22 06/29/22 06/29/22 Range/Units 12:42 12:42 15:40 WBC 9.0 (4.8-10.8) X10*3/uL RBC 5.53 H (4.20-5.50) X10*6/uL Hgb 16.6 H (12.0-16.0) g/dl Hct 48.7 H (37.0-47.0) % MCV 88.1 (80.0-98.0) fL MCH 30.0 (27.0-33.0) pg MCHC 34.1 (31.0-35.0) g/dl RDW 12.1 (11.0-16.0) % Plt Count 308 (160-400) X10*3/uL MPV 9.2 L (9.4-12.3) fL Immature Gran % (Auto) 0.2 (0.0-0.4) % Neut % (Auto) 75.0 H (45-73) % Lymph % (Auto) 15.6 L (20-40) % [place] % (Auto) 8.6 (2-11) % Eos % (Auto) 0.3 (0-4) % Baso % (Auto) 0.3 (0-2) % Lymph # (Auto) 1.4 (1.2-4.9) X10*3/uL [place] # (Auto) 0.8 (0.1-1.2) X10*3/uL Eos # (Auto) 0.0 (0.0-0.4) X10*3/uL Baso # (Auto) 0.0 (0.0-0.2) X10*3/uL Abs Immat Gran (auto) 0.02 (0.00-0.03) X10*3/uL Absolute Neuts (auto) 6.8 (2.0-8.3) x10*3/uL Absolute Nucleated RBC 0.000 (0.0-0.012) X10*3/uL Nucleated RBC % (auto) 0.0 (0.0-0.2) /100WBC Sodium 140 (135-145) mmol/L Potassium 4.1 (3.3-5.1) mmol/L Chloride 105 (96-108) mmol/L Carbon Dioxide 27 (22-29) mmol/L Anion Gap 12 (12-20) BUN 9 (9-16) mg/dL Creatinine 1.11 (0.5-1.4) mg/dL Estim Creat Clear Calc 74.3 Estimated GFR 57 Random Glucose 93 (60-115) mg/dL Calcium 9.7 (8.4-10.2) mg/dL Total Bilirubin 0.9 (0.0-1.0) mg/dL Direct Bilirubin 0.2 (0.0-0.5) mg/dL AST 18 (5-31) U/L ALT 13 (0-31) U/L Alkaline Phosphatase 79 (39-117) U/L Total Protein 7.1 (6.5-8.0) g/dL Albumin 4.6 (3.5-5.0) g/dL Lipase 13 (8-78) U/L Urine Color Yellow Urine Appearance Cloudy Urine pH 5.5 (5.0-9.0) Ur Specific [place] >= 1.030 H (1.005-1.025) Urine Protein Trace (Neg-Trace) mg/dL Urine Glucose (UA) Negative (Negative) mg/dL Urine Ketones 40 (Negative) mg/dL Urine Blood Negative (Negative) Urine Nitrite Negative (Negative) Ur Leukocyte Esterase Moderate (2+) H (Negative) Urine RBC 0-2 (0-2) /HPF Urine WBC 21-50 H (0-5) /HPF Ur Squamous Epith Cells 3-5 (0-2) /HPF Urine Bacteria None Seen (None Seen) Hyaline Casts 0-2 (0-2) /LPF Urine Test (NEGATIVE) 06/29/22 Range/Units 15:40 WBC (4.8-10.8) X10*3/uL RBC (4.20-5.50) X10*6/uL Hgb (12.0-16.0) g/dl Hct (37.0-47.0) % MCV (80.0-98.0) fL MCH (27.0-33.0) pg MCHC (31.0-35.0) g/dl RDW (11.0-16.0) % Plt Count (160-400) X10*3/uL MPV (9.4-12.3) fL Immature Gran % (Auto) (0.0-0.4) % Neut % (Auto) (45-73) % Lymph % (Auto) (20-40) % [place] % (Auto) (2-11) % Eos % (Auto) (0-4) % Baso % (Auto) (0-2) % Lymph # (Auto) (1.2-4.9) X10*3/uL [place] # (Auto) (0.1-1.2) X10*3/uL Eos # (Auto) (0.0-0.4) X10*3/uL Baso # (Auto) (0.0-0.2) X10*3/uL Abs Immat Gran (auto) (0.00-0.03) X10*3/uL Absolute Neuts (auto) (2.0-8.3) x10*3/uL Absolute Nucleated RBC (0.0-0.012) X10*3/uL Nucleated RBC % (auto) (0.0-0.2) /100WBC Sodium (135-145) mmol/L Potassium (3.3-5.1) mmol/L Chloride (96-108) mmol/L Carbon Dioxide (22-29) mmol/L Anion Gap (12-20) BUN (9-16) mg/dL Creatinine (0.5-1.4) mg/dL Estim Creat Clear Calc Estimated GFR Random Glucose (60-115) mg/dL Calcium (8.4-10.2) mg/dL Total Bilirubin (0.0-1.0) mg/dL Direct Bilirubin (0.0-0.5) mg/dL AST (5-31) U/L ALT (0-31) U/L Alkaline Phosphatase (39-117) U/L Total Protein (6.5-8.0) g/dL Albumin (3.5-5.0) g/dL Lipase (8-78) U/L Urine Color Urine Appearance Urine pH (5.0-9.0) Ur Specific [place] (1.005-1.025) Urine Protein (Neg-Trace) mg/dL Urine Glucose (UA) (Negative) mg/dL Urine Ketones (Negative) mg/dL Urine Blood (Negative) Urine Nitrite (Negative) Ur Leukocyte Esterase (Negative) Urine RBC (0-2) /HPF Urine WBC (0-5) /HPF Ur Squamous Epith Cells (0-2) /HPF Urine Bacteria (None Seen) Hyaline Casts (0-2) /LPF Urine Test NEGATIVE (NEGATIVE) External Record Review External record reviewed: Inpatient record Patient has a complicated course during the previous endoscopy colonoscopy. Had a cardiac arrest at that time. Chronic Conditions Abdominal pain Discharge Plan Discharge Clinical Impression: Urinary tract infection, Abdominal pain Patient Disposition: Home, Self-Care Instructions: Urinary Tract Infection in Women (DC), Abdominal Pain (ED) Prescriptions: New sulfamethoxazole-trimethoprim [Bactrim DS] 800-160 mg tablet 1 tab PO BID Qty: 14 0RF ibuprofen 400 mg tablet 400 mg PO Q6H PRN (Reason: pain) Qty: 20 0RF No Action peg 3350-electrolytes [GaviLyte-C] 240-22.72-6.72 -5.84 gram recon soln See Rx Instructions PO .COMPLEX 1 Days Qty: 4000 0RF Rx Instructions: 1 bottle PO As directed prior to colonoscopy; until fecal effluent is clear omeprazole 40 mg capsule,delayed release(DR/EC) 40 mg PO DAILY 90 Days Qty: 90 1RF Rx Instructions: pt is taking citalopram in the pn and takes ppi in the am to avoid interaction citalopram 40 mg tablet 40 mg PO DAILY testosterone cypionate 200 mg/mL oil 100 mg topical QWEEK alcohol swabs Pads, Medicated 0 pad topical DIRECTED fluticasone propionate 50 mcg/actuation spray,suspension 1 spray intranasal DAILY sodium chloride 0.65 % aerosol,spray 2 spray intranasal Q3H polyethylene glycol 3350 [Miralax] 17 gram powder in packet 17 g PO DAILY PRN (Reason: constipation) 30 Days Qty: 30 1RF simethicone [Gas Relief (simethicone)] 125 mg tablet,chewable 125 mg PO TID PRN (Reason: abdominal distention) Qty: 90 2RF docusate sodium [Colace] 100 mg capsule 100 mg PO BID Qty: 60 2RF Referrals: Alexa Tillman NP [Primary Care Provider] - 2 days
[2022-06-29] MEDS: cefTRIAXone sodium 1 GM in 0.9 % Sodium Chloride 50 ML IV (16:34)
== END 2022-06-29 17:03 | disposition home or self-care (01) ==
PROVIDERS: Nurse Practitioner Family; Emergency Provider Emergency Medicine Emergency Medical Services; PCP Hospitalist
DX: N39.0 Urinary tract infection, site not specified (principal); R10.9 Unspecified abdominal pain; Z79.899 Other long term (current) drug therapy
CPT/HCPCS: 36415; 80048; 80076; 81001; 81025; 83690; 85025; 87086; 96361; 96374; 96375; 99284; J0696; J1885; J2405

== ENCOUNTER 2022-07-02 20:44 | Emergency (ER) | payer MEDICARE, MEDICAID, OTHER, SELFPAY ==
--- NOTE | ~2022-07-02 | CT_ITS ---
EXAMINATION: CT ABDOMEN AND PELVIS WITHOUT CONTRAST CLINICAL INFORMATION: Right flank pain COMPARISON: Previous CT of the abdomen and pelvis December 2020 TECHNIQUE: Multidetector volumetric imaging was performed from the superior aspect of the liver through the pubic symphysis. Sagittal and coronal reformatted images were obtained on the technologist's workstation. This CT examination was performed using dose optimization techniques as appropriate, variously including the following: *Automated exposure control *Adjustment of mA and/or kV according to patient size (this includes techniques or standardized protocols for targeted exams where dose is matched to indication/reason for exam; i.e. extremities or head) *Use of iterative reconstruction technique DLP: 547 mGy-cm FINDINGS: LUNG BASES: The visualized lung bases are unremarkable. LIVER, GALLBLADDER, AND BILIARY TREE: The liver is normal in size, shape, and attenuation. No focal hepatic lesion or biliary ductal dilatation is present. The gallbladder is unremarkable with no evidence of radiopaque gallstones, gallbladder wall thickening, or obvious pericholecystic inflammatory changes. PANCREAS: Unremarkable. SPLEEN: Unremarkable. ADRENAL GLANDS: Unremarkable. KIDNEYS AND URETERS: The kidneys are normal in size, shape, and attenuation. No hydronephrosis, hydroureter, or calculi seen. No perinephric stranding. BLADDER: Unremarkable. GASTROINTESTINAL TRACT: The small and large bowel are unremarkable. The appendix is unremarkable. ABDOMINAL WALL: Umbilical hernia containing fat. LYMPH NODES: Normal. VASCULAR: Unremarkable. PELVIC VISCERA: Unremarkable. OSSEOUS STRUCTURES: Large lesion in the right ischial bone involving the right acetabulum and superior pubic ramus. This is similar to December 2020 CT scan and can be seen on old pelvis x-ray from 2009 exam suggestive of a benign bone lesion. Fibrous dysplasia and giant cell tumor. CT/CT abdomen pelvis wo IV con IMPRESSION: No acute findings. Umbilical hernia containing fat. No renal stone or hydronephrosis. Normal appendix. Stable right ischial bone lesion. Fleischner guidelines were followed.
[2022-07-02 20:47] VITALS: BP 139/81; PULSE 128; RESP 18; TEMP 37.2; O2SAT 99; BMI 33.0
--- NOTE | 2022-07-02 20:49 | ED_ITS ---
HPI - General Adult General Chief complaint: Urogenital-Female <Jhonatan Lobo - Last Filed: 07/02/22 20:51> Stated complaint: UTI. abd pain, presc. meds arent working <Jhonatan Lobo - Last Filed: 07/02/22 20:51> Time Seen by Provider: 07/02/22 21:46 <Jhonatan Lobo - Last Filed: 07/02/22 20:51> Source: patient and family <Soto Ledbetter MD - Last Filed: 07/02/22 23:37> Mode of arrival: ambulatory <Soto Ledbetter MD - Last Filed: 07/02/22 23:37> Limitations: no limitations <Soto Ledbetter MD - Last Filed: 07/02/22 23:37> History of Present Illness HPI narrative: 32-year-old male, born female, presents with right flank pain, UTI. Patient was here 3 or 4 days ago. He was diagnosed with urinary tract infection. He was given antibiotics and treated with Bactrim as an outpatient. Since then, symptoms have been persistent. They are described as moderate to severe. His right-sided flank pain. The pain is intermittent. Sometimes it is worse with position. It is occasionally associated with nausea no vomiting. Patient has chronic GI complaints which is followed by gastroenterology. Workup for that is been inconclusive is soft possibly to be IBS. He denies any fevers, chills, sweats, urinary frequency, urgency but does have hesitancy. The pain does not apparently radiate. Pain is described as sharp and achy in nature. Sometimes he feels a pulling sensation in the flank area. <Soto Ledbetter MD - Last Filed: 07/02/22 23:37> Related Data Home medications: Home Medications Medication Instructions Recorded Confirmed alcohol swabs 0 pad topical DIRECTED 08/31/20 06/02/22 citalopram 40 mg tablet 40 mg PO DAILY 08/31/20 06/02/22 fluticasone propionate 50 1 spray intranasal DAILY 08/31/20 06/02/22 mcg/actuation nasal spray,suspension sodium chloride 0.65 % nasal spray 2 spray intranasal Q3H 08/31/20 06/02/22 aerosol testosterone cypionate 200 mg/mL 100 mg topical QWEEK 08/31/20 06/02/22 intramuscular oil Previous Rx's Medication Instructions Recorded polyethylene glycol 3350 17 gram 17 g PO DAILY PRN constipation 30 08/31/20 oral powder packet (Miralax) days #30 ea docusate sodium 100 mg capsule 100 mg PO BID #60 caps 01/15/21 (Colace) peg 3350 240 gram-electrolytes See Rx Instructions PO .COMPLEX 1 01/15/21 22.72 gram-6.72 g-5.84 g powdr for day #4,000 mL soln (Gavilyte-C) omeprazole 40 mg capsule,delayed 40 mg PO DAILY 3 months #90 caps 01/31/22 release simethicone 125 mg chewable tablet 125 mg PO TID PRN abdominal 06/02/22 (Gas Relief (simethicone)) distention #90 tabs ibuprofen 400 mg tablet 400 mg PO Q6H PRN pain #20 tabs 06/29/22 sulfamethoxazole 800 1 tab PO BID #14 tabs 06/29/22 mg-trimethoprim 160 mg tablet (Bactrim DS) cephalexin 500 mg capsule 500 mg PO Q12H 14 days #28 caps 07/02/22 <Jhonatan Lobo - Last Filed: 07/02/22 20:51> Allergies/adverse reactions: Allergies Allergy/AdvReac Type Severity Reaction Status Date / Time No Known Allergies Allergy Verified 07/02/22 20:47 <Jhonatan Lobo - Last Filed: 07/02/22 20:51> [facility] Past Medical History Medical History: Medical History Anxiety Asperger syndrome Depression 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 GERD (gastroesophageal reflux disease) <Jhonatan Lobo - Last Filed: 07/02/22 20:51> Surgical History: Surgical History Hx of tonsillectomy Hx of wisdom tooth extraction No pertinent past surgical history <Jhonatan Lobo - Last Filed: 07/02/22 20:51> Family History Family History: Family History Father COPD (chronic obstructive pulmonary disease) Diabetes Mother Family history of thyroid problem Paternal Aunt Skin cancer Paternal Uncle Skin cancer <Jhonatan Lobo - Last Filed: 07/02/22 20:51> Social History Social History: Social History Housing: House Alcohol intake: never Patient Tobacco Use Status: Never used Tobacco e-Cigarette/Vaping Use: Never Used Second Hand Smoke Exposure: Yes Substance Use Type: Marijuana Advance Directives: No Advance Directives Information Provided: No service: No Current occupational status: unemployed Cognitive needs: No Hearing needs: No Vision needs: No <Jhonatan Lobo - Last Filed: 07/02/22 20:51> Physical Exam ED Vital Signs: Vital Signs - 24 hr 07/02/22 20:47 07/02/22 21:13 Temperature 99.0 F Pulse Rate 128 H 95 Respiratory Rate 18 Blood Pressure 139/81 Pulse Oximetry 99 97 Oxygen Delivery Method Room Air Room Air BMI result Body Mass Index 33.0 <Jhonatan Lobo - Last Filed: 07/02/22 20:51> Vital Signs - 24 hr 07/02/22 20:47 07/02/22 21:13 Temperature 99.0 F Pulse Rate 128 H 95 Respiratory Rate 18 Blood Pressure 139/81 Pulse Oximetry 99 97 Oxygen Delivery Method Room Air Room Air BMI result Body Mass Index 33.0 <Soto Ledbetter MD - Last Filed: 07/02/22 23:37> GEN: Well developed, no acute distress, alert, oriented HEENT: Normocephalic, atraumatic, normal external ears, nose appears normal, no oropharyngeal edema or exudates Eyes: Normal to appearance Neck: Supple, no lymphadenopathy Respiratory: Talks in complete sentences, no respiratory distress, clear to auscultation bilaterally Cardiovascular: Regular rate and rhythm, no murmurs rubs or gallops Abdomen: Soft, nontender, nondistended, no guarding, no rebound Back: No CVA tenderness Extremities: No clubbing cyanosis or edema Neurologic: No focal neurologic deficits, cranial nerves 2-12 intact, strength is 5/5 bilaterally Skin: No rash <Soto Ledbetter MD - Last Filed: 07/02/22 23:37> Course Course Course Narrative: 32 year old female to male transgender presents for evaluation of abdominal pain and concern for UTI. Was seen here 3 days ago and was prescriebd ibuprofen and Bactrim. Reports taking them with minimal relief <Jhonatan Lobo - Last Filed: 07/02/22 20:51> Reevaluation(s) Reevaluation #1: Will provide patient with ceftriaxone. I did review recent culture resul ts which were mixed corey. No sensitivities were available. Will do imaging to rule out other possible diagnoses. <Soto Ledbetter MD - Last Filed: 07/02/22 23:37> Reevaluation #2: Patient is feeling better. Discussed CT scan results. Will switch to Keflex from Bactrim. <Soto Ledbetter MD - Last Filed: 07/02/22 23:37> Time: 23:35 <Soto Ledbetter MD - Last Filed: 07/02/22 23:37> Medications Administered Discontinued Medications Generic Name Dose Route Start Last Admin Trade Name Freq PRN Reason Stop Dose Admin Sodium Chloride 1,000 mls @ 999 mls/hr 07/02/22 22:30 07/02/22 22:35 Ns IV 07/02/22 23:30 999 mls/hr .Q1H1M TITI Administration Ceftriaxone Sodium 1 gm/ 50 mls @ 100 mls/hr 07/02/22 22:20 07/02/22 23:24 Sodium Chloride IV 07/02/22 22:49 Infused ONCE ONE Infusion <Jhonatan Lobo - Last Filed: 07/02/22 20:51> Medications Administered Discontinued Medications Generic Name Dose Route Start Last Admin Trade Name Freq PRN Reason Stop Dose Admin Sodium Chloride 1,000 mls @ 999 mls/hr 07/02/22 22:30 07/02/22 22:35 Ns IV 07/02/22 23:30 999 mls/hr .Q1H1M TITI Administration Ceftriaxone Sodium 1 gm/ 50 mls @ 100 mls/hr 07/02/22 22:20 07/02/22 23:24 Sodium Chloride IV 07/02/22 22:49 Infused ONCE ONE Infusion <Soto Ledbetter MD - Last Filed: 07/02/22 23:37> Medical Decision Making Medical Decision Making MDM Narrative: [age] male presents with recently diagnosed urinary tract infection and right flank pain. Examination is consistent with pyelonephritis versus renal colic with an infected stone. No imaging was done on his previous visit. Abdomen was soft and nontender, no rebound or guarding. Patient should have imaging at this time to rule out infected stone. <Soto Ledbetter MD - Last Filed: 07/02/22 23:37> Differential Diagnosis Differential Diagnoses: The differential diagnosis associated with the presentation includes (Pyelonephritis, renal colic, infected kidney stone, IBD, IBS, colitis, diverticulitis) <Soto Ledbetter MD - Last Filed: 07/02/22 23:37> Pyelonephritis <Soto Ledbetter MD - Last Filed: 07/02/22 23:37> Admission/Observation Consideration of admission/observation: Escalation of care including admission/observation considered (Patient could be admitted pending failure to respond to outpatient antibiotics) <Soto Ledbetter MD - Last Filed: 07/02/22 23:37> Lab Data MDM Lab Attestation statement: I reviewed the patient's lab results. <Soto Ledbetter MD - Last Filed: 07/02/22 23:37> Result Diagrams: 07/02/22 21:03 07/02/22 21:03 <Jhonatan Lobo - Last Filed: 07/02/22 20:51> Labs: Lab Results 07/02/22 07/02/22 07/02/22 Range/Units 21:03 21:03 21:13 WBC 8.7 (4.8-10.8) X10*3/uL RBC 5.23 (4.20-5.50) X10*6/uL Hgb 15.7 (12.0-16.0) g/dl Hct 45.5 (37.0-47.0) % MCV 87.0 (80.0-98.0) fL MCH 30.0 (27.0-33.0) pg MCHC 34.5 (31.0-35.0) g/dl RDW 12.4 (11.0-16.0) % Plt Count 311 (160-400) X10*3/uL MPV 9.2 L (9.4-12.3) fL Immature Gran % (Auto) 0.3 (0.0-0.4) % Neut % (Auto) 58.1 (45-73) % Lymph % (Auto) 25.3 (20-40) % [place] % (Auto) 14.1 H (2-11) % Eos % (Auto) 1.6 (0-4) % Baso % (Auto) 0.6 (0-2) % Lymph # (Auto) 2.2 (1.2-4.9) X10*3/uL [place] # (Auto) 1.2 (0.1-1.2) X10*3/uL Eos # (Auto) 0.1 (0.0-0.4) X10*3/uL Baso # (Auto) 0.1 (0.0-0.2) X10*3/uL Abs Immat Gran (auto) 0.03 (0.00-0.03) X10*3/uL Absolute Neuts (auto) 5.0 (2.0-8.3) x10*3/uL Absolute Nucleated RBC 0.000 (0.0-0.012) X10*3/uL Nucleated RBC % (auto) 0.0 (0.0-0.2) /100WBC Sodium 139 (135-145) mmol/L Potassium 3.7 (3.3-5.1) mmol/L Chloride 105 (96-108) mmol/L Carbon Dioxide 25 (22-29) mmol/L Anion Gap 13 (12-20) BUN 9 (9-16) mg/dL Creatinine 1.35 (0.5-1.4) mg/dL Estim Creat Clear Calc 62.2 Estimated GFR 46 Random Glucose 131 H (60-115) mg/dL Calcium 9.7 (8.4-10.2) mg/dL Urine Color Yellow Urine Appearance Cloudy Urine pH 6.0 (5.0-9.0) Ur Specific [place] >= 1.030 H (1.005-1.025) Urine Protein 30 (1+) H (Neg-Trace) mg/dL Urine Glucose (UA) Negative (Negative) mg/dL Urine Ketones 15 (Negative) mg/dL Urine Blood Negative (Negative) Urine Nitrite Negative (Negative) Ur Leukocyte Esterase Moderate (2+) H (Negative) Urine RBC 3-5 H (0-2) /HPF Urine WBC >50 H (0-5) /HPF Ur Squamous Epith Cells 6-10 (0-2) /HPF Urine Bacteria None Seen (None Seen) Hyaline Casts 0-2 (0-2) /LPF <Jhonatan Lobo - Last Filed: 07/02/22 20:51> Lab Results 07/02/22 07/02/22 07/02/22 Range/Units 21:03 21:03 21:13 WBC 8.7 (4.8-10.8) X10*3/uL RBC 5.23 (4.20-5.50) X10*6/uL Hgb 15.7 (12.0-16.0) g/dl Hct 45.5 (37.0-47.0) % MCV 87.0 (80.0-98.0) fL MCH 30.0 (27.0-33.0) pg MCHC 34.5 (31.0-35.0) g/dl RDW 12.4 (11.0-16.0) % Plt Count 311 (160-400) X10*3/uL MPV 9.2 L (9.4-12.3) fL Immature Gran % (Auto) 0.3 (0.0-0.4) % Neut % (Auto) 58.1 (45-73) % Lymph % (Auto) 25.3 (20-40) % [place] % (Auto) 14.1 H (2-11) % Eos % (Auto) 1.6 (0-4) % Baso % (Auto) 0.6 (0-2) % Lymph # (Auto) 2.2 (1.2-4.9) X10*3/uL [place] # (Auto) 1.2 (0.1-1.2) X10*3/uL Eos # (Auto) 0.1 (0.0-0.4) X10*3/uL Baso # (Auto) 0.1 (0.0-0.2) X10*3/uL Abs Immat Gran (auto) 0.03 (0.00-0.03) X10*3/uL Absolute Neuts (auto) 5.0 (2.0-8.3) x10*3/uL Absolute Nucleated RBC 0.000 (0.0-0.012) X10*3/uL Nucleated RBC % (auto) 0.0 (0.0-0.2) /100WBC Sodium 139 (135-145) mmol/L Potassium 3.7 (3.3-5.1) mmol/L Chloride 105 (96-108) mmol/L Carbon Dioxide 25 (22-29) mmol/L Anion Gap 13 (12-20) BUN 9 (9-16) mg/dL Creatinine 1.35 (0.5-1.4) mg/dL Estim Creat Clear Calc 62.2 Estimated GFR 46 Random Glucose 131 H (60-115) mg/dL Calcium 9.7 (8.4-10.2) mg/dL Urine Color Yellow Urine Appearance Cloudy Urine pH 6.0 (5.0-9.0) Ur Specific [place] >= 1.030 H (1.005-1.025) Urine Protein 30 (1+) H (Neg-Trace) mg/dL Urine Glucose (UA) Negative (Negative) mg/dL Urine Ketones 15 (Negative) mg/dL Urine Blood Negative (Negative) Urine Nitrite Negative (Negative) Ur Leukocyte Esterase Moderate (2+) H (Negative) Urine RBC 3-5 H (0-2) /HPF Urine WBC >50 H (0-5) /HPF Ur Squamous Epith Cells 6-10 (0-2) /HPF Urine Bacteria None Seen (None Seen) Hyaline Casts 0-2 (0-2) /LPF <Soto Ledbetter MD - Last Filed: 07/02/22 23:37> Independent Interpretation I performed an independent interpretation of an: CT Scan (Abd/Pelvis: NAD) <Soto Ledbetter MD - Last Filed: 07/02/22 23:37> Radiology Impression Discussion of test interpretation with radiology: I have reviewed the radiologist's reading. ( CT/CT abdomen pelvis wo IV con IMPRESSION: No acute findings. Umbilical hernia containing fat. No renal stone or hydronephrosis. Normal appendix. Stable right ischial bone lesion. Fleischner guidelines were followed. Dictated By:Deepa Shoemakerigned By:<Electronically angel) <Soto Ledbetter MD - Last Filed: 07/02/22 23:37> Independent Historian Clinical information obtained from an independent historian. History obtained fr om or confirmed by: Parent <Soto Ledbetter MD - Last Filed: 07/02/22 23:37> Prescription Management I considered prescription management with: Pain Medication and Antibiotic <Soto Ledbetter MD - Last Filed: 07/02/22 23:37> Discharge Plan Discharge Clinical Impression: Pyelonephritis <Jhonatan Lobo - Last Filed: 07/02/22 20:51> Patient Disposition: Home, Self-Care <Jhonatan Lobo - Last Filed: 07/02/22 20:51> Instructions: Kidney Infection (ED) <Jhonatan Lobo - Last Filed: 07/02/22 20:51> Prescriptions: New cephalexin 500 mg capsule 500 mg PO Q12H 14 Days Qty: 28 0RF No Action peg 3350-electrolytes [GaviLyte-C] 240-22.72-6.72 -5.84 gram recon soln See Rx Instructions PO .COMPLEX 1 Days Qty: 4000 0RF Rx Instructions: 1 bottle PO As directed prior to colonoscopy; until fecal effluent is clear omeprazole 40 mg capsule,delayed release(DR/EC) 40 mg PO DAILY 90 Days Qty: 90 1RF Rx Instructions: pt is taking citalopram in the pn and takes ppi in the am to avoid interaction sulfamethoxazole-trimethoprim [Bactrim DS] 800-160 mg tablet 1 tab PO BID Qty: 14 0RF ibuprofen 400 mg tablet 400 mg PO Q6H PRN (Reason: pain) Qty: 20 0RF citalopram 40 mg tablet 40 mg PO DAILY testosterone cypionate 200 mg/mL oil 100 mg topical QWEEK alcohol swabs Pads, Medicated 0 pad topical DIRECTED fluticasone propionate 50 mcg/actuation spray,suspension 1 spray intranasal DAILY sodium chloride 0.65 % aerosol,spray 2 spray intranasal Q3H polyethylene glycol 3350 [Miralax] 17 gram powder in packet 17 g PO DAILY PRN (Reason: constipation) 30 Days Qty: 30 1RF simethicone [Gas Relief (simethicone)] 125 mg tablet,chewable 125 mg PO TID PRN (Reason: abdominal distention) Qty: 90 2RF docusate sodium [Colace] 100 mg capsule 100 mg PO BID Qty: 60 2RF <Jhonatan Lobo - Last Filed: 07/02/22 20:51> Referrals: Alexa Tillman, GENERAL INTERNIST [Primary Care Provider] - 3 days <Jhonatan Lobo - Last Filed: 07/02/22 20:51>
[2022-07-02 21:13] VITALS: PULSE 95; O2SAT 97
[2022-07-02 21:13] LABS: MANUAL DIFF FLAG NO
[2022-07-02 21:16] LABS: Basophils Absolute Auto 0.1 X10*3/uL (0.0-0.2); Basophils Percent Auto 0.6 % (0-2); Eosinophils Absolute Auto 0.1 X10*3/uL (0.0-0.4); Eosinophils Percent Auto 1.6 % (0-4); Hematocrit 45.5 % (37.0-47.0); Hemoglobin 15.7 g/dl (12.0-16.0); Imm Gran Abs Auto 0.03 X10*3/uL (0.00-0.03); Imm Gran Pct Auto 0.3 % (0.0-0.4); Lymphocytes Absolute Auto 2.2 X10*3/uL (1.2-4.9); Lymphocytes Percent Auto 25.3 % (20-40); Mean Corpuscular HGB Conc 34.5 g/dl (31.0-35.0); Mean Platelet Volume 9.2 fL (9.4-12.3); Monocytes Absolute Auto 1.2 X10*3/uL (0.1-1.2); Monocytes Percent Auto 14.1 % (2-11); Neutrophils Percent Auto 58.1 % (45-73); Platelet Count 311 X10*3/uL (160-400); Red Blood Count 5.23 X10*6/uL (4.20-5.50); Red Cell Distribution Width 12.4 % (11.0-16.0); White Blood Count 8.7 X10*3/uL (4.8-10.8)
[2022-07-02 21:20] LABS: Appearance Urine Cloudy; Color Urine Yellow; Glucose Urine UA Negative (Negative); Leukocyte Esterase Urine Moderate (2+) (Negative); Nitrite Urine Negative (Negative); Specific Gravity - Urine >= 1.030 (1.005-1.025); UMIC TRIGGER UACC YES; Urine Blood Negative (Negative); Urine Ketones 15 mg/dL (Negative); Urine Protein 30 (1+) mg/dL (Neg-Trace)
[2022-07-02 21:22] LABS: Bacteria Urine None Seen (None Seen); Hyaline Casts Urine 0-2 /LPF (0-2); UACC Culture Trigger YES; WBC Urine >50 /HPF (0-5)
[2022-07-02 21:25] LABS: Anion Gap 13 (12-20); Blood Urea Nitrogen 9 mg/dL (9-16); Calcium 9.7 mg/dL (8.4-10.2); Carbon Dioxide 25 mmol/L (22-29); Chloride 105 mmol/L (96-108); Creatinine Clr Calc Pharmacy 62.2; Estimated Glomerular Filt Rate 46; Glucose Random 131 mg/dL (60-115); Potassium 3.7 mmol/L (3.3-5.1); Sodium 139 mmol/L (135-145)
[2022-07-02] MEDS: 0.9 % Sodium Chloride 1,000 ML 999 ML IV (22:35)
[2022-07-02] MEDS: cefTRIAXone sodium 1 GM in 0.9 % Sodium Chloride 50 ML IV (22:36)
--- NOTE | 2022-07-02 22:48 | PC.NURSE ---
Addendum entered by Martha Palma LPN 07/02/22 22:49: correction 1l NS infusing per order Original Note: 20g IV insertd in right forearm, 2l NS infusing in addition to 1gm rocephin. pt with mother at bedside, awaiting CT results. call bae within reach
[2022-07-02 23:59] VITALS: BP 108/56; PULSE 70; RESP 16; TEMP 36.2; O2SAT 97
== END 2022-07-03 00:01 | disposition home or self-care (01) ==
PROVIDERS: Physician Assistant; Emergency Provider Emergency Medicine; PCP Hospitalist
DX: N12 Tubulo-interstitial nephritis, not specified as acute or chronic (principal); R10.9 Unspecified abdominal pain; F12.90 Cannabis use, unspecified, uncomplicated; F64.0 Transsexualism; Z79.890 Hormone replacement therapy; Z79.899 Other long term (current) drug therapy
CPT/HCPCS: 36415; 74176; 80048; 81001; 85025; 87086; 96361; 96365; 99283; 99284; J0696

== ENCOUNTER 2022-08-28 14:42 | Emergency (ER) | payer MEDICARE, OTHER, MEDICAID, SELFPAY ==
[2022-08-28 14:49] VITALS: BP 126/73; PULSE 81; RESP 18; TEMP 36.1; O2SAT 98; BMI 33.7
--- NOTE | 2022-08-28 16:53 | ED_ITS ---
HPI - General Adult General Chief complaint: General Medical Stated complaint: fish hook stuck in fingers Time Seen by Provider: 08/28/22 15:43 Source: patient Mode of arrival: ambulatory Limitations: no limitations History of Present Illness HPI narrative: 32 yo transgender patient here with fish hooks stuck in both right thumb, left thumb/index finger. Tetanus UTD. Denies any numbness/tingling/weakness of the e xtremity. Related Data Home Medications Medication Instructions Recorded Confirmed alcohol swabs 0 pad topical DIRECTED 08/31/20 06/02/22 citalopram 40 mg tablet 40 mg PO DAILY 08/31/20 06/02/22 fluticasone propionate 50 1 spray intranasal DAILY 08/31/20 06/02/22 mcg/actuation nasal spray,suspension sodium chloride 0.65 % nasal spray 2 spray intranasal Q3H 08/31/20 06/02/22 aerosol testosterone cypionate 200 mg/mL 100 mg topical QWEEK 08/31/20 06/02/22 intramuscular oil Previous Rx's Medication Instructions Recorded polyethylene glycol 3350 17 gram 17 g PO DAILY PRN constipation 30 08/31/20 oral powder packet (Miralax) days #30 ea docusate sodium 100 mg capsule 100 mg PO BID #60 caps 01/15/21 (Colace) peg 3350 240 gram-electrolytes See Rx Instructions PO .COMPLEX 1 01/15/21 22.72 gram-6.72 g-5.84 g powdr for day #4,000 mL soln (Gavilyte-C) simethicone 125 mg chewable tablet 125 mg PO TID PRN abdominal 06/02/22 (Gas Relief (simethicone)) distention #90 tabs ibuprofen 400 mg tablet 400 mg PO Q6H PRN pain #20 tabs 06/29/22 sulfamethoxazole 800 1 tab PO BID #14 tabs 06/29/22 mg-trimethoprim 160 mg tablet (Bactrim DS) cephalexin 500 mg capsule 500 mg PO Q12H 14 days #28 caps 07/02/22 omeprazole 40 mg capsule,delayed 40 mg PO DAILY 3 months #90 caps 08/09/22 release Allergies Allergy/AdvReac Type Severity Reaction Status Date / Time No Known Allergies Allergy Verified 07/02/22 20:47 Review of Systems Review of Systems: Yes all other systems are reviewed and are negative Constitutional: Constitutional: Reports no additional constitutional complaints, Denies body ache(s), Denies chills, Denies fever(s), Denies headache(s) and Denies weakness Eyes: Eyes: Reports no additional eye complaints and Denies change in vision ENT: Reports system reviewed and no additional complaints, except as documented, Denies dizziness, Denies headache(s), Denies nasal congestion, D enies nasal discharge and Denies neck pain Cardiovascular: Cardiovascular: Reports no additional cardiovascular complaints, Denies chest pain, Denies leg edema and Denies dyspnea Respiratory: Respiratory: Reports no additional respiratory complaints, Denies cough and Denies dyspnea Gastrointestinal: Gastrointestinal: Reports no additional gastrointestinal complaints, Denies abdominal pain, Denies diarrhea, Denies nausea and Denies vom iting Genitourinary: Genitourinary: Reports no additional female genitourinary complaints and Denies urinary incontinence Musculoskeletal: Musculoskeletal: Reports no additional musculoskeletal complaints, Denies back pain, Denies arthralgias, Denies joint swelling, Denies neck pain, Denies numbness and Denies tingling Integumentary/Breasts: Skin/Breast: Reports system reviewed and no additional complaints, except as docu and Denies rash Neurologic: Reports system reviewed and no additional complaints, except as documented, Denies dizziness, Denies headache(s), Denies numbness, Denies tingling and Denies weakness PMFSH Past Medical History Attestation statement: The following information was validated with the patient. Source: old records reviewed and nursing notes reviewed Medical History Anxiety Asperger syndrome Depression 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 GERD (gastroesophageal reflux disease) Surgical History Hx of tonsillectomy Hx of wisdom tooth extraction No pertinent past surgical history Family History Family History Father COPD (chronic obstructive pulmonary disease) Diabetes Mother Family history of thyroid problem Paternal Aunt Skin cancer Paternal Uncle Skin cancer Social History Social History Housing: House Alcohol intake: never Patient Tobacco Use Status: Never used Tobacco e-Cigarette/Vaping Use: Never Used Second Hand Smoke Exposure: Yes Substance Use Type: Marijuana Advance Directives: No Advance Directives Information Provided: No service: No Current occupational status: unemployed Cognitive needs: No Hearing needs: No Vision needs: No Physical Exam ED Vital Signs: Vital Signs - 24 hr 08/28/22 14:49 Temperature 97 F Pulse Rate 81 Respiratory Rate 18 Blood Pressure 126/73 Pulse Oximetry 98 Oxygen Delivery Method Room Air BMI result Body Mass Index 33.7 Const General: cooperative, healthy appearing, comfortable and no acute distress Orientation/consciousness: patient oriented x3 Limitations: no limitations HENMT Head: Yes normal to inspection Ears: hearing grossly normal bilaterally Eyes General: appearance normal, both eyes and all related structures Pupils: Equal, round and reactive pupils present Neck Neck: Yes normal visual inspection Chest Chest palpation & inspection: normal inspection of the chest Resp Effort & Inspection: normal respiratory effort Auscultation: clear to auscultation bilaterally Cardio Rate: regular rate Rhythm: regular rhythm Peripheral pulses: Peripheral pulses 2+ throughout GI Inspection: Yes normal to inspection Back/Spine/Pelvis Thoracic/Lumbar Spine: thoracic and lumbar spine normal to inspection Skin General skin exam: no rashes or lesions noted Neuro General: patient oriented x3 Cranial nerves: Yes Equal, round and reactive pupils present Extrem Other: FROM of all digits. CMS intact distally Hand/finger images: 1. +FB present at the medial nail bed 2. +FB present at the lateral aspect of the finger 3. +FB present at the distal aspect Medications Administered Discontinued Medications Generic Name Dose Route Start Last Admin Trade Name Freq PRN Reason Stop Dose Admin Lidocaine HCl 2 ml 08/28/22 16:55 08/28/22 17:15 Lidocaine Hcl 2% 2 Ml Vial SUBCUT 08/28/22 16:56 2 ml ONCE ONE Administration Lidocaine HCl 2 ml 08/28/22 16:55 08/28/22 17:15 Lidocaine Hcl 2% 2 Ml Vial SUBCUT 08/28/22 16:56 2 ml ONCE ONE Administration Lidocaine HCl 2 ml 08/28/22 16:55 08/28/22 17:15 Lidocaine Hcl 2% 2 Ml Vial SUBCUT 08/28/22 16:56 2 ml ONCE ONE Administration Procedures Foreign Body Removal Site: left, right and hand (right 1st digit, left 1st digit/2nd digit ) Description of foreign body: fish hook Sedation/Analgesia: none Technique: manual removal Confirmed by:: direct visualization Complications: none Post-procedure exam: awake, alert Neurovascular: normal distal pulse, normal capillary fill, distal light touch sensation intact and distal motor function normal Nerve Block Nerve Block 1: Local Anesthetic: lidocaine 2% Amount of anesthesia used (mL): 3 Side: right Nerve Blocks: digital (thumb) Procedure Successful: Yes Patient Tolerated Procedure: well Complications: none Nerve Block 2: Local Anesthetic: lidocaine 2% Amount of anesthesia used (mL): 3 Side: left Nerve Blocks: digital (1st digit/2nd digit ) Procedure Successful: Yes Patient Tolerated Procedure: well Complications: none Medical Decision Making Medical Decision Making MDM Narrative: 32-year-old transgender patient here with fishhooks to both hands. See procedure note for digital block and soft tissue FB removal Site cleansed with betadine/saline Tetanus UTD Differential Diagnosis Differential Diagnoses: The differential diagnosis associated with the presentation includes Discharge Plan Discharge Clinical Impression: Foreign body (FB) in soft tissue Patient Disposition: Home, Self-Care Instructions: Soft Tissue Foreign Body (ED) Prescriptions: No Action peg 3350-electrolytes [GaviLyte-C] 240-22.72-6.72 -5.84 gram recon soln See Rx Instructions PO .COMPLEX 1 Days Qty: 4000 0RF Rx Instructions: 1 bottle PO As directed prior to colonoscopy; until fecal effluent is clear omeprazole 40 mg capsule,delayed release(DR/EC) 40 mg PO DAILY 90 Days Qty: 90 1RF Rx Instructions: pt is taking citalopram in the pn and takes ppi in the am to avoid interaction cephalexin 500 mg capsule 500 mg PO Q12H 14 Days Qty: 28 0RF sulfamethoxazole-trimethoprim [Bactrim DS] 800-160 mg tablet 1 tab PO BID Qty: 14 0RF ibuprofen 400 mg tablet 400 mg PO Q6H PRN (Reason: pain) Qty: 20 0RF citalopram 40 mg tablet 40 mg PO DAILY testosterone cypionate 200 mg/mL oil 100 mg topical QWEEK alcohol swabs Pads, Medicated 0 pad topical DIRECTED fluticasone propionate 50 mcg/actuation spray,suspension 1 spray intranasal DAILY sodium chloride 0.65 % aerosol,spray 2 spray intranasal Q3H polyethylene glycol 3350 [Miralax] 17 gram powder in packet 17 g PO DAILY PRN (Reason: constipation) 30 Days Qty: 30 1RF simethicone [Gas Relief (simethicone)] 125 mg tablet,chewable 125 mg PO TID PRN (Reason: abdominal distention) Qty: 90 2RF docusate sodium [Colace] 100 mg capsule 100 mg PO BID Qty: 60 2RF
== END 2022-08-28 17:32 | disposition home or self-care (01) ==
PROVIDERS: Emergency Provider Student in an Organized Health Care Education/Training Program; PCP Hospitalist
DX: S61.042A Puncture wound with foreign body of left thumb without damage to nail, initial encounter (principal); S61.241A Puncture wound with foreign body of left index finger without damage to nail, initial encounter; S61.041A Puncture wound with foreign body of right thumb without damage to nail, initial encounter; W45.8XXA Other foreign body or object entering through skin, initial encounter; Y93.19 Activity, other involving water and watercraft; Y92.89 Other specified places as the place of occurrence of the external cause; Y99.8 Other external cause status
CPT/HCPCS: 64450; 99282; 99284

== ENCOUNTER 2022-09-02 12:50 | Emergency (ER) | payer MEDICARE, OTHER, MEDICAID, SELFPAY ==
--- NOTE | ~2022-09-02 | XR_ITS ---
EXAMINATION: XR FOOT, RIGHT CLINICAL INFORMATION: Right foot pain and swelling. COMPARISON: None available. TECHNIQUE: AP, lateral, and oblique views of the right foot. FINDINGS: The bones and soft tissues appear unremarkable. No fracture identified. Alignment is anatomic. Joint spaces are maintained. XR/XR foot RT 2V IMPRESSION: Normal plain film examination of the right foot.
--- NOTE | ~2022-09-02 | XR_ITS ---
EXAMINATION: XR ANKLE, RIGHT CLINICAL INFORMATION: Pain and swelling COMPARISON: None available. TECHNIQUE: AP, lateral, and mortise views of the right ankle. FINDINGS: The bones and soft tissues are normal. No fracture. Alignment is anatomic. Joint spaces are maintained. No joint effusion. XR/XR ankle RT min 3V IMPRESSION: Normal right ankle.
[2022-09-02 12:55] VITALS: BP 135/69; PULSE 93; RESP 18; TEMP 36.4; O2SAT 99; BMI 33.7
--- NOTE | 2022-09-02 12:55 | ED_ITS ---
HPI - General Adult General Chief complaint: Extremity Injury, Lower Stated complaint: R foot pain Time Seen by Provider: 09/02/22 13:40 Source: patient Mode of arrival: ambulatory Limitations: no limitations History of Present Illness HPI narrative: 32-year-old patient here with right foot and ankle pain after an inversion injury which occurred yesterday. Patient reports pain with weight-bearing. No associated numbness, tingling or weakness of the extremity. Related Data Home Medications Medication Instructions Recorded Confirmed alcohol swabs 0 pad topical DIRECTED 08/31/20 06/02/22 citalopram 40 mg tablet 40 mg PO DAILY 08/31/20 06/02/22 fluticasone propionate 50 1 spray intranasal DAILY 08/31/20 06/02/22 mcg/actuation nasal spray,suspension sodium chloride 0.65 % nasal spray 2 spray intranasal Q3H 08/31/20 06/02/22 aerosol testosterone cypionate 200 mg/mL 100 mg topical QWEEK 08/31/20 06/02/22 intramuscular oil Previous Rx's Medication Instructions Recorded polyethylene glycol 3350 17 gram 17 g PO DAILY PRN constipation 30 08/31/20 oral powder packet (Miralax) days #30 ea docusate sodium 100 mg capsule 100 mg PO BID #60 caps 01/15/21 (Colace) peg 3350 240 gram-electrolytes See Rx Instructions PO .COMPLEX 1 01/15/21 22.72 gram-6.72 g-5.84 g powdr for day #4,000 mL soln (Gavilyte-C) simethicone 125 mg chewable tablet 125 mg PO TID PRN abdominal 06/02/22 (Gas Relief (simethicone)) distention #90 tabs ibuprofen 400 mg tablet 400 mg PO Q6H PRN pain #20 tabs 06/29/22 sulfamethoxazole 800 1 tab PO BID #14 tabs 06/29/22 mg-trimethoprim 160 mg tablet (Bactrim DS) cephalexin 500 mg capsule 500 mg PO Q12H 14 days #28 caps 07/02/22 omeprazole 40 mg capsule,delayed 40 mg PO DAILY 3 months #90 caps 08/09/22 release Allergies Allergy/AdvReac Type Severity Reaction Status Date / Time No Known Allergies Allergy Verified 09/02/22 13:00 Review of Systems Review of Systems: Yes all other systems are reviewed and are negative Constitutional: Constitutional: Reports no additional constitutional complaints, Denies body ache(s), Denies chills, Denies fever(s), Denies headache(s) and Denies weakness Eyes: Eyes: Reports no additional eye complaints and Denies change in vision ENT: Reports system reviewed and no additional complaints, except as documented, Denies dizziness, Denies headache(s), Denies nasal congestion, Denies nasal discharge and Denies neck pain Cardiovascular: Cardiovascular: Reports no additional cardiovascular complaints, Denies chest pain, Denies leg edema and Denies dyspnea Respiratory: Respiratory: Reports no additional respiratory complaints, Denies cough and Denies dyspnea Gastrointestinal: Gastrointestinal: Reports no additional gastrointestinal complaints, Denies abdominal pain, Denies diarrhea, Denies nausea and Denies vomiting Genitourinary: Genitourinary: Reports no additional female genitourinary complaints and Denies urinary incontinence Musculoskeletal: Musculoskeletal: Reports no additional musculoskeletal complaints, Denies back pain, Reports arthralgias, Reports joint swelling, Denies neck pain, Denies numbness and Denies tingling Integumentary/Breasts: Skin/Breast: Reports system reviewed and no additional complaints, except as docu and Denies rash Neurologic: Reports system reviewed and no additional complaints, except as documented, Denies dizziness, Denies headache(s), Denies numbness, Denies tingling and Denies weakness PMFSH Past Medical History Attestation statement: The following information was validated with the patient. Source: old records reviewed and nursing notes reviewed Medical History Anxiety Asperger syndrome Depression 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 GERD (gastroesophageal reflux disease) Surgical History Hx of tonsillectomy Hx of wisdom tooth extraction No pertinent past surgical history Family History Family History Father COPD (chronic obstructive pulmonary disease) Diabetes Mother Family history of thyroid problem Paternal Aunt Skin cancer Paternal Uncle Skin cancer Social History Social History Housing: House Alcohol intake: current Alcohol intake frequency: holidays/special occasions only Patient Tobacco Use Status: Never used Tobacco Smoked in Last 30 Days: No e-Cigarette/Vaping Use: Never Used Second Hand Smoke Exposure: Yes Use of substances other than those prescribed or required for medical reasons: Yes Substance Use Type: Marijuana Advance Directives: Yes Advance Directives Information Provided: Yes Advance Directives on File: No service: No Current occupational status: unemployed Cognitive needs: No Hearing needs: No Vision needs: No Physical Exam ED Vital Signs: Vital Signs - 24 hr 09/02/22 12:55 Temperature 97.5 F Pulse Rate 93 Respiratory Rate 18 Blood Pressure 135/69 Pulse Oximetry 99 Oxygen Delivery Method Room Air BMI result Body Mass Index 33.7 Const General: cooperative, healthy appearing, comfortable and no acute distress Orientation/consciousness: patient oriented x3 Limitations: no limitations HENMT Head: Yes normal to inspection Ears: hearing grossly normal bilaterally Eyes General: appearance normal, both eyes and all related structures Neck Neck: Yes normal visual inspection Chest Chest palpation & inspection: normal inspection of the chest Resp Effort & Inspection: normal respiratory effort Cardio Peripheral pulses: Peripheral pulses 2+ throughout GI Inspection: Yes normal to inspection Skin General skin exam: no rashes or lesions noted Neuro General: patient oriented x3 and moves all extremities Cognition (Neuro): normal cognition Gait exam (Neuro): Normal gait present Extrem Other: There is tenderness on palpation over the right lateral ankle as well as at the base of the 1st digit. There is full range of motion of the foot and ankle with no ligamental laxity. No posterior calf pain. Negative Albarran sign. Palpable DP and PT pulses. Normal sensation distally. Course Course Course Narrative: RME performed by Alysia Baires PA-C. Patient is a 32 year old assigned female at , now male, presenting to the emergency department with right foot pain. Patient states that his right foot hurts after a slip and fall on a boat yesterday. Patient denies any head strike or loss of consciousness. Imaging ordered. Patient placed back in the waiting room pending room availability and results. Reevaluation(s) Reevaluation #1: X-ray show no acute fracture. Likely sprain. Patient placed in Diaz wrap and given crutches for home. Reviewed rice. Reviewed worrisome signs and symptoms when to return to the emergency room. Comfortable with plan for discharge home. Medical Decision Making Medical Decision Making MDM Narrative: 32-year-old patient here with right ankle and foot pain after an inversion injury which occurred yesterday. Will check x-rays Differential Diagnosis Differential Diagnoses: The differential diagnosis associated with the presentation includes Fracture, sprain, low concern for vascular injury Independent Interpretation I performed an independent interpretation of an: Plain X-Ray Interpretation: I independently reviewed the x-ray and agree with radiologist's report Radiology Impression Discussion of test interpretation with radiology: I have reviewed the radiologist's reading. Radiologist Impression: [address] [address] XRay Report Signed Patient: Catherine Jones) MR#: [id number] : 1990 Acct:[id number] Age/Sex: 32 / F ADM Date: 09/02/22 Loc: HO.ED Attending Dr: Ordering Physician: Alysia Baires Date of Service: 09/02/22 Procedure(s): XR ankle RT min 3V Accession Number(s): [id number] cc: Alysia Baires~ EXAMINATION: XR ANKLE, RIGHT CLINICAL INFORMATION: Pain and swelling? COMPARISON: None available.? TECHNIQUE: AP, lateral, and mortise views of the right ankle. FINDINGS: The bones and soft tissues are normal. No fracture. Alignment is anatomic. Joint spaces are maintained. No joint effusion.? XR/XR ankle RT min 3V IMPRESSION: Normal right ankle. [address] [address] XRay Report Signed Patient: Catherine Jones (Kyle) MR#: [id number] : 1990 Acct:[id number] Age/Sex: 32 / F ADM Date: 09/02/22 Loc: HO.ED Attending Dr: Ordering Physician: Alysia Baires Date of Service: 09/02/22 Procedure(s): XR foot RT 2V Accession Number(s): [id number] cc: Alysia Baires~ EXAMINATION: XR FOOT, RIGHT CLINICAL INFORMATION: Right foot pain and swelling.? COMPARISON: None available.? TECHNIQUE: AP, lateral, and oblique views of the right foot. FINDINGS: The bones and soft tissues appear unremarkable. No fracture identified. Alignment is anatomic. Joint spaces are maintained.? XR/XR foot RT 2V IMPRESSION: Normal plain film examination of the right foot. Discharge Plan Discharge Clinical Impression: Ankle sprain and strain, Foot sprain Patient Disposition: Home, Self-Care Instructions: Ankle Sprain (ED), Foot Sprain (ED) Additional Instructions: Rest, ice, elevation Use the Diaz wrap and crutches for the next few days until able to bear weight without experiencing pain Take Motrin or Tylenol for pain as needed Prescriptions: No Action peg 3350-electrolytes [GaviLyte-C] 240-22.72-6.72 -5.84 gram recon soln See Rx Instructions PO .COMPLEX 1 Days Qty: 4000 0RF Rx Instructions: 1 bottle PO As directed prior to colonoscopy; until fecal effluent is clear omeprazole 40 mg capsule,delayed release(DR/EC) 40 mg PO DAILY 90 Days Qty: 90 1RF Rx Instructions: pt is taking citalopram in the pn and takes ppi in the am to avoid interaction cephalexin 500 mg capsule 500 mg PO Q12H 14 Days Qty: 28 0RF sulfamethoxazole-trimethoprim [Bactrim DS] 800-160 mg tablet 1 tab PO BID Qty: 14 0RF ibuprofen 400 mg tablet 400 mg PO Q6H PRN (Reason: pain) Qty: 20 0RF citalopram 40 mg tablet 40 mg PO DAILY testosterone cypionate 200 mg/mL oil 100 mg topical QWEEK alcohol swabs Pads, Medicated 0 pad topical DIRECTED fluticasone propionate 50 mcg/actuation spray,suspension 1 spray intranasal DAILY sodium chloride 0.65 % aerosol,spray 2 spray intranasal Q3H polyethylene glycol 3350 [Miralax] 17 gram powder in packet 17 g PO DAILY PRN (Reason: constipation) 30 Days Qty: 30 1RF simethicone [Gas Relief (simethicone)] 125 mg tablet,chewable 125 mg PO TID PRN (Reason: abdominal distention) Qty: 90 2RF docusate sodium [Colace] 100 mg capsule 100 mg PO BID Qty: 60 2RF Referrals: Alexa Tillman S[employer]IOR [employer]ELOPER [Primary Care Provider] - 10 days Interventions: ED Discharge Assessment Last Done: 09/02/22 14:36 Discharge Date/Time: 09/02/22 14:39
--- NOTE | 2022-09-02 13:38 | PC.NURSE ---
pt has had tetanus in 2021
== END 2022-09-02 14:39 | disposition home or self-care (01) ==
PROVIDERS: Emergency Provider Emergency Medicine; PCP Hospitalist
DX: S93.401A Sprain of unspecified ligament of right ankle, initial encounter (principal); S93.601A Unspecified sprain of right foot, initial encounter; R60.0 Localized edema; X58.XXXA Exposure to other specified factors, initial encounter; Y93.9 Activity, unspecified; Y92.9 Unspecified place or not applicable; Y99.9 Unspecified external cause status; Z79.899 Other long term (current) drug therapy
CPT/HCPCS: 73610; 73620; 99283

== ENCOUNTER 2022-11-11 10:34 | Outpatient (AMB) | payer OTHER, SELFPAY ==
[2022-11-11 10:38] VITALS: BP 108/64; PULSE 83; RESP 12; TEMP 36.6; O2SAT 99; BMI 33.3
--- NOTE | 2022-11-11 10:38 | MHC.PC.OV ---
Vital Signs 11/11/22 10:38 Height 5 ft 3 in Weight 188 lb BMI 33.3 BP 108/64 Blood Pressure Location Rt brachial Position Sitting Respiration 12 Pulse 83 Pulse Source Pulse Oximeter Temp 97.9 F Temp Source Temporal Artery Scan Pulse Oximetry (%) 99 Oxygen Delivery Method Room Air Intake Visit Reasons: pe Intake Note: Patient states that his endoscopy was done at [facility] this year. Patient would like referral to get a colonoscopy done at [facility] as well. Patient states that he busted his knee last week and his knee made a popping noise and is now bruised and swollen on left leg. Patient states that it hurts when flexing leg up and down. Back Hand Required: No Accompanied by: Self / Same As Patient Allergies No Known Allergies Allergy (Verified 11/11/22 11:11) Medication List - Last Reconciled 11/11/22 by Keyur Gonzalez CNP alcohol swabs 0 pad topical DIRECTED bupropion HCl 150 mg PO QAM cephalexin 500 mg PO Q12H 14 days citalopram 40 mg PO DAILY docusate sodium (Colace) 100 mg PO BID lorazepam 1 mg PO DAILY PRN omeprazole 40 mg PO DAILY 3 months simethicone (Gas Relief (simethicone)) 125 mg PO TID PRN testosterone cypionate 100 mg topical QWEEK Tobacco use date assessed: 05/25/22 Dental Screening Dental Screen Date: 11/11/22 Did you have a dental visit in the last 12 months?: Yes Did you have a dental problem in the last 6 months where you did not have access to dental care?: No Was dental information given to patient?: Patient has dentist HPI HPI Comments History of Present Illness Details 32-year-old female presents for complete physical exam. He has h/o anxiety and depression. He is on psychotropic medications which he notes he takes as prescribed. He notes he is followed by a psychiatrist for medication management and therapist every 2 weeks. She notes she was mowing his neighbor's lawn a week ago when his twisted his left knee. She states that the knee popped. She reports pain when the knee is flexed. No pain with standing or walking. He states that the pain is improving. He has not taking any pain regimen. No tingling, numbness, or loss of sensation. He notes he is not sexually and has no concerns for STD. 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 GERD (gastroesophageal reflux disease) Surgical History Hx of tonsillectomy Hx of wisdom tooth extraction No pertinent past surgical history Family History Father COPD (chronic obstructive pulmonary disease) Diabetes Mother Family history of thyroid problem Paternal Aunt Skin cancer Paternal Uncle Skin cancer Social History Housing: House Alcohol intake: current Alcohol intake frequency: holidays/special occasions only Patient Tobacco Use Status: Never used Tobacco e-Cigarette/Vaping Use: Never Used Second Hand Smoke Exposure: Yes Substance Use Type: Marijuana service: No Current occupational status: employed Current occupation: [employer] Cognitive needs: No Hearing needs: No Vision needs: No Questionnaire PHQ-9 Over the last 2 weeks, how often have you been bothered by any of the following problems? 1. Little interest or pleasure in doing things: not at all 2. Feeling down, depressed, or hopeless: not at all 3. Trouble falling or staying asleep, or sleeping too much: more than half the days 4. Feeling tired or having little energy: not at all 5. Poor appetite or overeating: more than half the days 6. Feeling bad about yourself - or that you are a failure or have let yourself or your family down: not at all 7. Trouble concentrating on things, such as reading the newspaper or watching television: not at all 8. Moving or speaking so slowly that other people could have noticed. Or the opposite - being so fidgety or restless that you have been moving around a lot more than usual: not at all 9. Thoughts that you would be better off or of hurting yourself in some way: not at all Total score: 4 Depression Screening Interpretation: Negative Source: Developed by Drs. Yogesh Zaragoza, Zoya Daily, Salty Leblanc and colleagues, with an educational lukas from [employer]. Thrive Questionnaire Date Thrive assessed: 05/11/21 ANNE-7 AMB Questionnaire ANNE-7 Date ANNE - 7 assessed: 11/11/22 Feeling nervous, anxious, or on edge: 1 = Several days Not being able to stop or control worryin = Not at all Worrying too much about different things: 1 = Several days Trouble relaxin = More than half the days Being so restless that it is hard to sit still: 0 = Not at all Becoming easily annoyed or irritable: 0 = Not at all Feeling afraid as if something awful might happen: 0 = Not at all Total ANNE-7 score (0-4 normal; 5-9 mild; 10-14 moderate; 15-21 severe): 4 Source: Developed by Drs. Yogesh Zaragoza, Zoya Daily, Salty Leblanc and colleagues, with an educational lukas from [employer]. Review of Systems Const Details: Const Denies chills, Denies fatigue, Denies fever(s), Denies headache(s) and Denies weakness ENT Denies dizziness and Denies headache(s) Card Denies chest pain, Denies lightheadedness, Denies dyspnea and Denies other (Palpitations) Resp Denies cough, Denies dyspnea, Denies wheezing and Denies other ( shortness of breath) GI Denies abdominal pain, Denies melena, Denies hematochezia, Denies change in bowel habits, Denies dyspepsia and Denies nausea Denies hematuria and Denies dysuria Musc Reports as per HPI Skin/Breast Denies rash, Denies unusual bruising and Denies wounds Neuro Denies abnormal gait, Denies dizziness, Denies headache(s), Denies memory loss, Denies numbness, Denies Sensory deficit (Neuro), Denies tingling and Denies weakness Psych Denies anxiety, Denies depression, Denies memory loss Endo Denies cold intolerance, Denies fatigue, Denies heat intolerance, Denies polydipsia and Denies polyuria Aller/Immun Denies wheezing Physical exam (Primary Care) Vital Signs: Last Vital Signs Temp 97.9 F 11/11/22 10:38 Pulse 83 11/11/22 10:38 Resp 12 11/11/22 10:38 BP 108/64 11/11/22 10:38 Pulse Ox 99 11/11/22 10:38 Oxygen Delivery Method Room Air 11/11/22 10:38 BMI result Body Mass Index 33.3 Tobacco/Smoking Status: Tobacco use Status Tobacco use date assessed 05/25/22 11/11/22 10:51 Patient Tobacco Use Status Never used Tobacco 11/11/22 10:51 e-Cigarette/Vaping Use Never Used 11/11/22 10:51 PHQ-9: PHQ-9 Score PHQ-9: Total score 4 11/11/22 10:57 Depression Screening Interpretation: Negative Thrive Assessment: Date of Thrive Assessment Date Thrive assessed 05/11/21 11/11/22 10:51 Const Other: General: no acute distress and well developed Nutritional Appearance: well nourished Orientation/consciousness: patient oriented x3 HENMT Head: Yes normocephalic and Yes atraumatic Eyes General: appearance normal, both eyes and all related structures Pupils: Equal, round and reactive pupils present EOM: EOMs intact bilaterally Resp Effort & Inspection: normal respiratory effort Auscultation: clear to auscultation bilaterally Cardio Rate: regular rate Rhythm: regular rhythm Heart sounds: S1 normal heart sound present, S2 normal heart sound present, no gallops, no murmurs and no rubs GI Palpation (GI): No Abdominal aortic bruit present, Soft to palpation, nontender, No hepatosplenomegaly present and No Rebound tenderness present Auscultation: normal bowel sounds General: Yes no CVA tenderness Back/Spine/Pelvis Back: no CVA tenderness Cervical Spine: cervical ROM normal and No Cervical spine tenderness Thoracic/Lumbar Spine: thoraco-lumbar ROM normal, No pain with thoraco-lumbar ROM, No thoracic spinal tenderness and No lumbar spinal tenderness Extrem General: Yes normal to inspection, No edema and No calf tenderness Negative straight leg raise bilaterally Skin General: warm and dry. Normal skin color. Normal skin turgor Lesions: no lesions Rashes: no rashes Trauma: no lacerations or abrasions Wounds: no wounds Nails: normal Neuro General: patient oriented x3, gait normal and no focal neuro deficit Cranial nerves: Yes Equal, round and reactive pupils present Cognition (Neuro): normal cognition Gait exam (Neuro): Normal gait present Sensory Exam: No Sensory deficit (Neuro) Psych Appearance: grossly normal Affect: normal affect Attitude: cooperative Thought process: Normal thought process present Assessment and Plan Assessment & Plan (1) Normal physical exam: Code(s): Z00.00 - Encounter for general adult medical examination without abnormal findings Plan: No significant physical restrictions or limitations noted Recent labs were unrevealing He has h/o elevated TSH Will check TSH and LP Advised to get fasting blood work done Follow-up with PCP with concerns or symptoms Verbalized understanding and agreed with treatment plan. (2) Left knee pain: Code(s): M25.562 - Pain in left knee Plan: Reports left knee pain Normal range of motion No swelling, erythema, or overt injury or trauma Declined naproxen or the management Warm/cold compresses encouraged Follow-up with worsening or new symptoms Verbalized understanding and agreed with treatment plan. (3) Mixed anxiety and depressive disorder: Code(s): F41.8 - Other specified anxiety disorders Plan: Normal PHQ-9 and ANNE-7 scores Continue with current treatment regimen Follow-up with therapist and psychiatrist as planned Follow-up with PCP as needed Verbalized understanding and agreed with treatment plan. Orders: Orders Lipid Panel Today Z00.00 - Encounter for general adult medical examination without abnormal findings TSH reflex Free T4 Today Z00.00 - Encounter for general adult medical examination without abnormal findings Coding Level of Care Code Est Pt Prev Care 18-39y(18329) Diagnoses Normal physical exam Z00.00 Left knee pain M25.562 Mixed anxiety and depressive disorder F41.8
== END 2022-11-11 11:26 | disposition home or self-care (01) ==
PROVIDERS: PCP Hospitalist; Visit Provider Nurse Practitioner Family
DX: Z00.00 Encounter for general adult medical examination without abnormal findings (principal); M25.562 Pain in left knee; F41.8 Other specified anxiety disorders
CPT/HCPCS: 99395

== ENCOUNTER 2023-04-20 19:46 | Emergency (ER) | payer OTHER, SELFPAY ==
[2023-04-20 20:04] VITALS: BP 136/72; PULSE 85; RESP 18; TEMP 36.9; O2SAT 98; BMI 33.4
--- NOTE | 2023-04-20 21:43 | PC.NURSE ---
cuts noted to left middle and ring knuckles bleeding stopped. pt unable to fully form a fist otherwise +CSM. pt axox4. reports utd with immunizations.
--- NOTE | 2023-04-20 22:59 | ED_ITS ---
HPI - Wound/Laceration General Chief Complaint: Wound/Laceration Stated Complaint: left hand laceration Time Seen by Provider: 04/20/23 22:47 Source: patient Mode of arrival: ambulatory Limitations: no limitations History of Present Illness HPI narrative: Patient accidentally got superficial laceration on the left knuckle by a razor blade just prior to arrival minor bleed tendons are intact Related Data Home Medications Medication Instructions Recorded Confirmed alcohol swabs 0 pad topical DIRECTED 08/31/20 11/11/22 citalopram 40 mg tablet 40 mg PO DAILY 08/31/20 11/11/22 testosterone cypionate 200 mg/mL 100 mg topical QWEEK 08/31/20 11/11/22 intramuscular oil bupropion HCl 150 mg 24 hr tablet, 150 mg PO QAM 11/11/22 11/11/22 extended release lorazepam 1 mg tablet 1 mg PO DAILY PRN 11/11/22 11/11/22 Previous Rx's Medication Instructions Recorded docusate sodium 100 mg capsule 100 mg PO BID #60 caps 01/15/21 (Colace) simethicone 125 mg chewable tablet 125 mg PO TID PRN abdominal 06/02/22 (Gas Relief (simethicone)) distention #90 tabs cephalexin 500 mg capsule 500 mg PO Q12H 14 days #28 caps 07/02/22 omeprazole 40 mg capsule,delayed 40 mg PO DAILY 3 months #90 caps 08/09/22 release Allergies Allergy/AdvReac Type Severity Reaction Status Date / Time No Known Allergies Allergy Verified 11/11/22 11:11 Review of Systems 2 Review of Systems: Yes all other systems are reviewed and are negative [facility] Past Medical History Medical History GERD (gastroesophageal reflux disease) Depression Asperger syndrome Anxiety 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 Surgical History Hx of wisdom tooth extraction Hx of tonsillectomy No pertinent past surgical history Family History Family History Father COPD (chronic obstructive pulmonary disease) Diabetes Mother Family history of thyroid problem Paternal Aunt Skin cancer Paternal Uncle Skin cancer Social History Social History Housing: House Alcohol intake: current Alcohol intake frequency: holidays/special occasions only Patient Tobacco Use Status: Never used Tobacco e-Cigarette/Vaping Use: Never Used Second Hand Smoke Exposure: Yes Substance Use Type: Marijuana Advance Directives: No Advance Directives Information Provided: No service: No Current occupational status: employed Current occupation: [employer] Cognitive needs: No Hearing needs: No Vision needs: No Physical Exam 2 Vital Signs: Vital Signs: Last Vital Signs Temp 98.4 F 04/20/23 20:04 Pulse 85 04/20/23 20:04 Resp 18 04/20/23 20:04 BP 136/72 04/20/23 20:04 Pulse Ox 98 04/20/23 20:04 O2 Del Method Room Air 04/20/23 20:04 BMI result Body Mass Index 33.4 Extrem: Hand/finger images: 1. Superficial line laceration without any active bleed at the base of 4th finger on the dorsum of left hand tenderness intact neurovascular intact Procedures Laceration Laceration 1: Site: hand Side (If applicable): right Size (cm): 1 Description: linear Depth: simple, single layer Skin layer closed with: other (Skin glue) Discharge Plan Discharge Clinical Impression: Laceration Patient Disposition: Home, Self-Care Instructions: Laceration (ED) Additional Instructions: Local care as advised Prescriptions: No Action omeprazole 40 mg capsule,delayed release(DR/EC) 40 mg PO DAILY 90 Days Qty: 90 1RF Rx Instructions: pt is taking citalopram in the pn and takes ppi in the am to avoid interaction cephalexin 500 mg capsule 500 mg PO Q12H 14 Days Qty: 28 0RF citalopram 40 mg tablet 40 mg PO DAILY testosterone cypionate 200 mg/mL oil 100 mg topical QWEEK alcohol swabs Pads, Medicated 0 pad topical DIRECTED bupropion HCl 150 mg tablet extended release 24 hr 150 mg PO QAM lorazepam 1 mg tablet 1 mg PO DAILY PRN simethicone [Gas Relief (simethicone)] 125 mg tablet,chewable 125 mg PO TID PRN (Reason: abdominal distention) Qty: 90 2RF docusate sodium [Colace] 100 mg capsule 100 mg PO BID Qty: 60 2RF Interventions: ED Discharge Assessment Last Done: 04/20/23 23:22 Discharge Date/Time: 04/20/23 23:23
== END 2023-04-20 23:23 | disposition home or self-care (01) ==
PROVIDERS: Emergency Provider Internal Medicine
DX: S61.412A Laceration without foreign body of left hand, initial encounter (principal); W26.9XXA Contact with unspecified sharp object(s), initial encounter; Y93.9 Activity, unspecified; Y92.9 Unspecified place or not applicable; Y99.8 Other external cause status
CPT/HCPCS: 12001; 99282; 99284

== ENCOUNTER 2023-08-17 13:04 | Outpatient (AMB) | payer OTHER, SELFPAY ==
[2023-08-17 13:44] VITALS: BP 110/60; PULSE 88; TEMP 36.5; O2SAT 98; BMI 30.5
--- NOTE | 2023-08-17 13:44 | AM.OFFWIN_ITS ---
Intake Vital Signs 08/17/23 13:44 Height 5 ft 3 in Weight 172 lb BMI 30.5 BP 110/60 Pulse 88 Pulse Source Pulse Oximeter Temp 97.7 F Temp Source Temporal Artery Scan Pulse Oximetry (%) 98 Oxygen Delivery Method Room Air Intake Visit Reasons: EP Post COVID 07/18 still not better Intake Note: pt is here today for post covid started 07/18 still not better Patient Tobacco Use Status: Never used Tobacco Allergies No Known Allergies Allergy (Verified 08/17/23 14:13) Do you need a note to return to daycare/school/sports/work: No HPI HPI Comments History of Present Illness Details 33 y/o female patient who presents to [facility] in clinic with c/o URI symptoms. Reports nasal congestion and chest tightness. He had COVID back in July . 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 Surgical History Hx of wisdom tooth extraction Hx of tonsillectomy No pertinent past surgical history Family History Father COPD (chronic obstructive pulmonary disease) Diabetes Mother Family history of thyroid problem Paternal Aunt Skin cancer Paternal Uncle Skin cancer Social History Housing: House Alcohol intake: current Alcohol intake frequency: holidays/special occasions only Patient Tobacco Use Status: Never used Tobacco e-Cigarette/Vaping Use: Never Used Second Hand Smoke Exposure: Yes Substance Use Type: Marijuana service: No Current occupational status: employed Current occupation: [employer] Cognitive needs: No Hearing needs: No Vision needs: No Review of Systems Const All systems reviewed & are unremarkable except as noted in HPI and below Physical Exam Vital Signs: Last Vital Signs Temp 97.7 F 08/17/23 13:44 Pulse 88 08/17/23 13:44 BP 110/60 08/17/23 13:44 Pulse Ox 98 08/17/23 13:44 Oxygen Delivery Method Room Air 08/17/23 13:44 BMI result Body Mass Index 30.5 Const General: comfortable and no acute distress Nutritional Appearance: obese Orientation/consciousness: patient oriented x3 HEENT Head: Yes normocephalic Ears: external ears normal and TM abnormal bulging and with fluid behind the TM bilateral General nose exam: Abnormal mucous membranes and turbinates present boggy and erythematous Face and sinus: Yes sinuses nontender Mouth: moist mucous membranes Throat: Yes posterior oropharynx normal Resp Effort & Inspection: normal respiratory effort and able to speak in complete sentences Auscultation: clear to auscultation bilaterally Cardio Rate: regular rate Rhythm: regular rhythm Neuro General: patient oriented x3 Psych Speech and movement: Normal speech and movement present Assessment & Plan Assessment & Plan (1) Allergic rhinitis: Code(s): J30.9 - Allergic rhinitis, unspecified Qualifiers: Allergic rhinitis seasonality: seasonal Allergic rhinitis trigger: pollen Qualified Code(s): J30.1 - Allergic rhinitis due to pollen Plan: - Take medicines as prescribed. - RTC if not better. Medications: New oxymetazoline 0.05% (Afrin (oxymetazoline)) 2 sprays intranasal Q12H PRN 22 mL 0RF nasal congestion 3 days J30.1 - Allergic rhinitis due to pollen cetirizine (Zyrtec) 10 mg PO DAILY PRN 90 tabs 0RF allergy symptoms J30.1 - Allergic rhinitis due to pollen Coding Level of Care Code Est Pt Level 3 (51330) Diagnoses Seasonal allergic rhinitis due to pollen J30.1 Allergic rhinitis seasonality: seasonal Allergic rhinitis trigger: pollen Time Spent (min) 15
== END 2023-08-17 16:07 | disposition home or self-care (01) ==
PROVIDERS: Visit Provider Nurse Practitioner Family
DX: J30.1 Allergic rhinitis due to pollen (principal)
CPT/HCPCS: 99213

== ENCOUNTER 2023-11-16 19:14 | Emergency (ER) | payer OTHER, SELFPAY ==
[2023-11-16 19:28] VITALS: BP 170/100; PULSE 85; RESP 16; TEMP 36.7; O2SAT 99; BMI 31.2
[2023-11-17 01:25] VITALS: BP 116/75; PULSE 63; RESP 17; TEMP 36.6; O2SAT 99
--- NOTE | 2023-11-17 02:13 | ED_ITS ---
HPI - General Adult General Chief complaint: Dental/Oral Stated complaint: white spots on lips,sore Time Seen by Provider: 11/17/23 02:13 History of Present Illness ED Provider: [place] PAZ narrative: The patient is a 33-year-old transgender person who noticed some changes to the upper lip yesterday. They were concerned this could be some kind of cancer. They were concerned and came to the emergency room. The patient also notes a sore on the tongue. This has been present for a day or 2. The patient also notes that they have a mobile lump on the right side of the neck that has been present for several months. The patient says they have not had any recent sexual encounters. The patient says that they have never had sex. They therefore have no concern about the possibility of a sexually transmitted disease. Related Data Home Medications ?Medication ?Instructions ?Recorded ?Confirmed alcohol swabs 0 pad topical DIRECTED 08/31/20 11/11/22 citalopram 40 mg tablet 40 mg PO DAILY 08/31/20 11/11/22 testosterone cypionate 200 mg/mL 100 mg topical QWEEK 08/31/20 11/11/22 intramuscular oil bupropion HCl 150 mg 24 hr tablet, 150 mg PO QAM 11/11/22 11/11/22 extended release lorazepam 1 mg tablet 1 mg PO DAILY PRN 11/11/22 11/11/22 Previous Rx's ?Medication ?Instructions ?Recorded docusate sodium 100 mg capsule 100 mg PO BID #60 caps 01/15/21 (Colace) simethicone 125 mg chewable tablet 125 mg PO TID PRN abdominal 06/02/22 (Gas Relief (simethicone)) distention #90 tabs cephalexin 500 mg capsule 500 mg PO Q12H 14 days #28 caps 07/02/22 omeprazole 40 mg capsule,delayed 40 mg PO DAILY 3 months #90 caps 08/09/22 release cetirizine 10 mg tablet (Zyrtec) 10 mg PO DAILY PRN allergy 08/17/23 symptoms #90 tabs oxymetazoline 0.05 % nasal spray 2 spray intranasal Q12H PRN nasal 08/17/23 (Afrin (oxymetazoline)) congestion 3 days #22 mL Allergies Allergy/AdvReac Type Severity Reaction Status Date / Time No Known Allergies Allergy Verified 11/16/23 19:29 Review of Systems Review of Systems: Yes all other systems are reviewed and are negative [facility] Past Medical History Medical History GERD (gastroesophageal reflux disease) Depression Asperger syndrome Anxiety 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 Surgical History Hx of wisdom tooth extraction Hx of tonsillectomy No pertinent past surgical history Family History Family History Father COPD (chronic obstructive pulmonary disease) Diabetes Mother Family history of thyroid problem Paternal Aunt Skin cancer Paternal Uncle Skin cancer Social History Social History Housing: House Alcohol intake: current Alcohol intake frequency: holidays/special occasions only Patient Tobacco Use Status: Never used Tobacco Smoked in Last 30 Days: No e-Cigarette/Vaping Use: Never Used Second Hand Smoke Exposure: Yes Use of substances other than those prescribed or required for medical reasons: Yes Substance Use Type: Marijuana Advance Directives: No Advance Directives Information Provided: No Do you have a plan to hurt others: No Plan Patient : No service: No Current occupational status: employed Current occupation: [employer] Cognitive needs: No Hearing needs: No Vision needs: No Physical Exam ED Vital Signs: Vital Signs - 24 hr 11/16/23 19:28 11/17/23 01:25 Temperature 98.1 F 97.9 F Pulse Rate 85 63 Respiratory Rate 16 17 Blood Pressure 170/100 H 116/75 Pulse Oximetry 99 99 Oxygen Delivery Method Room Air Room Air BMI result Body Mass Index 31.2 Const Other: The patient is awake and alert and does not appear in any distress. HENMT Other: the face is symmetrical. On my initial inspection I did not appreciate any abnormalities to the lips. The patient indicates that when they pull their upper lip up slightly there is a patch of what might be dryness on the dry mucosa of the upper lip. This is not vesicular (or if it is vesicular the vesicles are very tiny ). the perioral skin is normal. I think the patient has a canker sore on the tip of the tongue. Eyes General: appearance normal, both eyes and all related structures Neck Other: The patient has what feels like an isolated lymph node in the mid anterior cervical chain on the right. It is a small mobile nontender mass just lateral to the right of the trachea. Resp Effort & Inspection: normal respiratory effort Auscultation: clear to auscultation bilaterally Cardio Rate: regular rate Rhythm: regular rhythm Heart sounds: S1 normal heart sound present and S2 normal heart sound present Skin General skin exam: no rashes or lesions noted Neuro Other: The patient is awake and alert with normal mental status although a somewhat anxious affect. Cranial nerves are grossly intact. Moves extremities normally. Normal gait. Extrem General: Yes full ROM and Yes no pedal edema Medical Decision Making Medical Decision Making MDM Narrative: The patient presents out of concern for the appearance of possible lesions on the upper lip. I felt the lesions were quite subtle. I am uncertain as to what they represent. Perhaps this represents some kind of dyshidrotic eczema. The patient was reassured that this does not seem to represent any kind of oral cancer. The patient also may have a lymph node on the right side of the neck which apparently has been there for some time and which the patient has discussed with their regular doctor. Overall the patient looks entirely well and I think they are safe for discharge to follow up with their regular doctor. I am recommending some kind of hydrating lip balm in the meantime. Discharge Plan Discharge Clinical Impression: Cheilitis Patient Disposition: Home, Self-Care Additional Instructions: I think the issue with your lips may be eczema. I would go to a pharmacy and try to find some kind of lip moisturizer and use this for awhile to see if it helps. Please also contact your regular doctor's office to arrange a follow up appointment for a 2nd opinion. Return to the emergency room if worse. Prescriptions: No Action omeprazole 40 mg capsule,delayed release(DR/EC) 40 mg PO DAILY 90 Days Qty: 90 1RF Rx Instructions: pt is taking citalopram in the pn and takes ppi in the am to avoid interaction cephalexin 500 mg capsule 500 mg PO Q12H 14 Days Qty: 28 0RF citalopram 40 mg tablet 40 mg PO DAILY testosterone cypionate 200 mg/mL oil 100 mg topical QWEEK alcohol swabs Pads, Medicated 0 pad topical DIRECTED bupropion HCl 150 mg tablet extended release 24 hr 150 mg PO QAM lorazepam 1 mg tablet 1 mg PO DAILY PRN cetirizine [Zyrtec] 10 mg tablet 10 mg PO DAILY PRN (Reason: allergy symptoms) Qty: 90 0RF oxymetazoline [Afrin (oxymetazoline)] 0.05 % spray,non-aerosol 2 spray intranasal Q12H PRN (Reason: nasal congestion) 3 Days Qty: 22 0RF simethicone [Gas Relief (simethicone)] 125 mg tablet,chewable 125 mg PO TID PRN (Reason: abdominal distention) Qty: 90 2RF docusate sodium [Colace] 100 mg capsule 100 mg PO BID Qty: 60 2RF Referrals: Mino Stanley MD [Physician] - (lip eczema) Interventions: ED Discharge Assessment Last Done: 11/17/23 03:05 Discharge Date/Time: 11/17/23 03:05 Print Language: Kiswahili
[2023-11-17 03:04] VITALS: BP 118/80; PULSE 60; RESP 16; TEMP 36.8; O2SAT 100
[2023-11-17 03:05] VITALS: BP 118/80; PULSE 60; RESP 16; TEMP 36.8; O2SAT 100
== END 2023-11-17 03:05 | disposition home or self-care (01) ==
PROVIDERS: Emergency Provider Emergency Medicine
DX: K13.0 Diseases of lips (principal)
CPT/HCPCS: 99282; 99284

== ENCOUNTER 2023-12-15 10:03 | Outpatient (AMB) | payer OTHER, SELFPAY ==
--- NOTE | 2023-12-15 10:07 | MHC.PC.OV ---
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[employer] Required: No Is last menstrual period known: No Post menopausal: No Patient : No Allergies No Known Allergies Allergy (Verified 12/15/23 10:13) Tobacco use date assessed: 12/15/23 Dental Screening Dental Screen Date: 12/15/23 Did you have a dental visit in the last 12 months?: No Did you have a dental problem in the last 6 months where you did not have access to dental care?: No Was dental information given to patient?: Patient has dentist HPI HPI Comments History of Present Illness Details 33-year-old assigned female at , presents for extended physical exam She has h/o anxiety and depression She is on psychotropic medications which she admits to taking as prescribed She is followed by a psychiatrist at [facility] every 3 months and a therapy once a month. His psychiatrist manages his psychotropic medication She admits to healthy lifestyle, including diet and exercise. She generally sleeps well She offers no complaints and denies acute symptoms at this time She was evaluated at [facility] for abdominal pain. She brought her discharge documentation. Abdominal CT scan revealed the following: Evidence of acute abdominal/pelvic process Diffuse apparent wall thickening of the urinary bladder may be due to incomplete distension with cystitis not excluded. Corelation with UA advised Expansive appearing of the inferior right pelvis, as described, with internal groundglass appearance and cortical thinning. Given patient's age, findings are favored wto be benign such as due ot fibrous dysplasia with Paget's disease less likely. Follow-up imaging is advised, as below Other findings, as above. Recommend: CT pelvis between 2 and 4 months for expansile right pelvic osseous lesion. Advised to follow up with with [facility] and general surgery and [facility]. CBC, BMP, hepatic panel, and urinalysis were unremarkeable Patient notes that she will follow up as recommended Nonsmoker. Drinks 1-2 beers once weekly. Smokes a few bowls of cannabis daily; has been smoking cannabis for about 13 years Last eye exam was several years ago. 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 Surgical History Hx of wisdom tooth extraction Hx of tonsillectomy No pertinent past surgical history Family History Father COPD (chronic obstructive pulmonary disease) Diabetes Mother Family history of thyroid problem Paternal Aunt Skin cancer Paternal Uncle Skin cancer Social History Housing: House Alcohol intake: current Alcohol intake frequency: holidays/special occasions only Patient Tobacco Use Status: Never used Tobacco e-Cigarette/Vaping Use: Never Used Second Hand Smoke Exposure: Yes Substance Use Type: Marijuana service: No Current occupational status: employed Current occupation: [employer] Cognitive needs: No Hearing needs: No Vision needs: No Questionnaire PHQ-9 Over the last 2 weeks, how often have you been bothered by any of the following problems? 1. Little interest or pleasure in doing things: not at all 2. Feeling down, depressed, or hopeless: not at all 3. Trouble falling or staying asleep, or sleeping too much: not at all 4. Feeling tired or having little energy: nearly every day 5. Poor appetite or overeating: not at all 6. Feeling bad about yourself - or that you are a failure or have let yourself or your family down: more than half the days 7. Trouble concentrating on things, such as reading the newspaper or watching television: not at all 8. Moving or speaking so slowly that other people could have noticed. Or the opposite - being so fidgety or restless that you have been moving around a lot more than usual: not at all 9. Thoughts that you would be better off or of hurting yourself in some way: not at all Total score: 5 Depression Screening Interpretation: Positive Depression Screening Follow-up: Existing condition and In treatment Depression Screening Done: Yes 57907 - PHQ-9 Billing: Yes Source: Developed by Drs. Yogesh Zaragoza, Zoya Daiyl, Salty Leblanc and colleagues, with an educational lukas from [employer]. Thrive Questionnaire Date Thrive assessed: 12/15/23 I am a: Patient What is your living situation today?: I have a steady place to live Within the past 12 months, did the food you bought not last and you didn't have the money to get more?: Never true Within the past 12 months, did you worry whether your food would run out before you got money to buy more?: Never true Do you have trouble paying for medicines?: No Do you have trouble getting transportation to medical appointments?: No Do you have trouble paying your heating and electricity bill?: No Do you have trouble taking care of your child, family member or friend?: No Do you have trouble with day-to-day activities such as bathing, preparing meals, shopping, managing finances, etc.?: No Are you currently unemployed and looking for a job?: No Are you interested in more education?: No Please select the resources that you would like help with: None Currently or been in a relationship where the following occur: No concerns reported THRIVE Score: 0 AUDIT C Alcohol Use Questionnaire (AUDIT-C) 1. How often do you have a drink containing alcohol?: 2-4 times a month 2. How many drinks containing alcohol do you have on a typical day when you are drinking?: 1 or 2 3. How often do you have six or more drinks on one occasion?: Never Total Score: 2 Score Reviewed/Action Taken: Yes ANNE-7 AMB Questionnaire ANNE-7 Date ANNE - 7 assessed: 12/15/23 Feeling nervous, anxious, or on edge: 0 = Not at all Not being able to stop or control worryin = Not at all Worrying too much about different things: 0 = Not at all Trouble relaxin = Not at all Being so restless that it is hard to sit still: 0 = Not at all Becoming easily annoyed or irritable: 0 = Not at all Feeling afraid as if something awful might happen: 0 = Not at all Total ANNE-7 score (0-4 normal; 5-9 mild; 10-14 moderate; 15-21 severe): 0 Source: Developed by Drs. Yogesh Zaragoza, Zoya Daily, Salty Leblanc and colleagues, with an educational lukas from [employer]. ANNE-7 Assessment Billing ANNE-7 Assessment Tool: ANNE-7 Assessment 05708 Review of Systems Const Details: Denies chills, Denies fatigue, Denies fever(s), Denies headache(s) and Denies weakness HEENT Denies change in vision, Denies dizziness, Denies headache(s), Denies hearing loss, Denies nasal congestion, Denies sinus pain, Denies sinus pressure and Denies sore throat Card Denies chest pain, Denies lightheadedness, Denies dyspnea and Denies other (palpitations) Resp Denies cough, Denies dyspnea and Denies wheezing GI Denies abdominal pain, Denies melena, Denies hematochezia, Denies change in bowel habits, Denies dyspepsia and Denies nausea Denies hematuria and Denies dysuria Musc Denies abnormal gait, Denies myalgias, Denies arthralgias, Denies numbness and Denies tingling Skin/Breast Denies rash, Denies unusual bruising and Denies wounds Neuro Denies abnormal gait, Denies dizziness, Denies headache(s), Denies memory loss, Denies numbness, Denies Sensory deficit (Neuro), Denies tingling and Denies weakness Psych Denies anxiety, Denies depression and Denies memory loss Endo Denies cold intolerance, Denies fatigue, Denies heat intolerance, Denies polydipsia and Denies polyuria Satinder/Lymph Denies easy bleeding and Denies easy bruising Aller/Immun Denies wheezing Physical exam (Primary Care) Tobacco/Smoking Status: Tobacco use Status Tobacco use date assessed 12/15/23 12/15/23 10:17 Patient Tobacco Use Status Never used Tobacco 12/15/23 10:10 e-Cigarette/Vaping Use Never Used 12/15/23 10:10 PHQ-9: PHQ-9 Score PHQ-9: Total score 5 12/15/23 10:22 Depression Screening Interpretation: Positive Depression Screening Follow-up: Existing condition and In treatment Thrive Assessment: Date of Thrive Assessment Date Thrive assessed 12/15/23 12/15/23 10:22 Currently or been in a relationship where the following occur: No concerns reported Const Other: General: no acute distress, well developed, alert and awake Nutritional Appearance: well nourished Orientation/consciousness: patient oriented x3 HENMT Head: Yes normocephalic and Yes atraumatic Ears: hearing grossly normal bilaterally and TM's normal bilaterally General nose exam: Normal external nose present and Normal nares present Mouth: Normal oral and palatal mucosa present and moist mucous membranes Teeth and gingiva: dentition normal Throat: Yes oropharynx normal Eyes Pupils: Equal, round and reactive pupils present and Pupil accommodation reflex normal EOM: EOMs intact bilaterally Neck Neck: Yes normal visual inspection, Yes no lymphadenopathy and Yes trachea midline Thyroid: Thyroid normal Carotids: no bruits Lymphatic: no lymphadenopathy noted Chest Chest palpation & inspection: normal inspection of the chest Resp Effort & Inspection: normal respiratory effort Auscultation: clear to auscultation bilaterally Cardio Rate: regular rate Rhythm: regular rhythm Heart sounds: S1 normal heart sound present, S2 normal heart sound present, no gallops, no murmurs and no rubs Bruits: no abdominal aortic bruits and no carotid bruits GI Palpation (GI): No Abdominal aortic bruit present, Soft to palpation, nontender, No hepatosplenomegaly present and No Rebound tenderness present Auscultation: normal bowel sounds General: Yes no CVA tenderness Back/Spine/Pelvis Back: no CVA tenderness Cervical Spine: cervical ROM normal and No Cervical spine tenderness Thoracic/Lumbar Spine: thoraco-lumbar ROM normal, No pain with thoraco-lumbar ROM, No thoracic spinal tenderness and No lumbar spinal tenderness Skin General: warm and dry. Normal skin color. Normal skin turgor Lesions: no lesions Rashes: no rashes Trauma: no lacerations or abrasions Wounds: no wounds Nails: normal Neuro General: patient oriented x3, gait normal and CN's II-XI intact bilaterally Cranial nerves: Yes Equal, round and reactive pupils present Cognition (Neuro): normal cognition Gait exam (Neuro): Normal gait present Motor exam (neuro): 5/5 motor strength present throughout Sensory Exam: No Sensory deficit (Neuro) Deep tendon reflexes (DTR's): Right patellar reflex intensity grade: 2+ and Left patellar reflex intensity grade: 2+ Extrem General: Yes normal to inspection, No edema and No calf tenderness Psych Appearance: grossly normal Affect: normal affect Attitude: cooperative Thought process: Normal thought process present Coding Level of Care Code Est Pt Prev Care [id number]([id number]) Diagnoses Normal physical exam Z00.00 Anxiety F41.9 Depression F32.A Eye exam, routine Z01.00 Additional Codes ANNE-7 Assessment Billing - ANNE-7 Assessment Tool: ANNE-7 Assessment 33720 ([id number]) Assessment & Plan Assessment & Plan (1) Normal physical exam: Code(s): Z00.00 - Encounter for general adult medical examination without abnormal findings Category: Medical Plan: No significant physical restrictions or limitations noted Healthy diet and routine exercise encouraged Encouraged to cut back or avoid cannabis use Advised to get lab work done and follow-up for a telehealth visit in 2-3 weeks for labs review Return with symptoms or concerns Verbalized understanding and agreed with the treatment plan (2) Anxiety: Code(s): F41.9 - Anxiety disorder, unspecified Category: Medical Plan: Reports controlled anxiety and depressive symptoms PHQ-9 score reveals mild depression. ANNE-7 score is normal Continue current treatment regimen Follow-up with psychiatrist and therapist as planned Verbalized understanding and agreed with treatment plan (3) Depression: Code(s): F32.A - Depression, unspecified Category: Medical Plan: Plan as above (4) Eye exam, routine: Code(s): Z01.00 - Encounter for examination of eyes and vision without abnormal findings Category: Medical Plan: Last eye exam was several years ago Declines referral for an eye exam and notes that she will follow up to set up an appointment for an eye exam Encouraged to follow-up as planned Orders: Orders Complete Blood Count Auto Diff Today Z00.00 - Encounter for general adult medical examination without abnormal findings Comprehensive [place]. Panel Fast Today Z00.00 - Encounter for general adult medical examination without abnormal findings Lipid Panel Today Z00.00 - Encounter for general adult medical examination without abnormal findings TSH reflex Free T4 Today Z00.00 - Encounter for general adult medical examination without abnormal findings UA CC w/rflx Micro + Cult Today Z00.00 - Encounter for general adult medical examination without abnormal findings
== END 2023-12-15 10:59 | disposition home or self-care (01) ==
PROVIDERS: Visit Provider Nurse Practitioner Family
DX: Z00.00 Encounter for general adult medical examination without abnormal findings (principal); F41.9 Anxiety disorder, unspecified; F32.A Depression, unspecified

== ENCOUNTER → 2023-12-15 10:03 | Outpatient (BNVA) | payer OTHER, SELFPAY | PROVIDERS: Visit Provider Nurse Practitioner Family | DX: Z00.01 Encounter for general adult medical examination with abnormal findings (principal); F41.9 Anxiety disorder, unspecified; F32.A Depression, unspecified; F64.0 Transsexualism | CPT/HCPCS: 96127 ==

== ENCOUNTER 2023-12-21 09:31 | Outpatient (REF) | payer OTHER, SELFPAY ==
[2023-12-21 09:49] LABS: MANUAL DIFF FLAG NO
[2023-12-21 10:04] LABS: Basophils Percent Auto 0.4 % (0-2); Eosinophils Absolute Auto 0.1 X10*3/uL (0.0-0.4); Eosinophils Percent Auto 1.4 % (0-4); Hematocrit 46.6 % (37.0-47.0); Hemoglobin 16.1 g/dl (12.0-16.0); Imm Gran Abs Auto 0.03 X10*3/uL (0.00-0.03); Imm Gran Pct Auto 0.3 % (0.0-0.4); Lymphocytes Percent Auto 21.3 % (20-40); Mean Corpuscular HGB Conc 34.5 g/dl (31.0-35.0); Mean Corpuscular Hemoglobin 30.3 pg (27.0-33.0); Mean Corpuscular Volume 87.6 fL (80.0-98.0); Mean Platelet Volume 9.2 fL (9.4-12.3); Monocytes Absolute Auto 0.9 X10*3/uL (0.1-1.2); Monocytes Percent Auto 9.3 % (2-11); Neutrophils Absolute Auto 6.3 x10*3/uL (2.0-8.3); Neutrophils Percent Auto 67.3 % (45-73); Platelet Count 308 X10*3/uL (160-400); Red Blood Count 5.32 X10*6/uL (4.20-5.50); Red Cell Distribution Width 12.9 % (11.0-16.0); White Blood Count 9.4 X10*3/uL (4.8-10.8)
[2023-12-21 10:49] LABS: Alanine Aminotransferase 17 U/L (0-31); Albumin Level 4.4 g/dL (3.5-5.0); Alkaline Phosphatase 80 U/L (39-117); Anion Gap 9 (12-20); Aspartate Amino Transferase 24 U/L (5-31); Bilirubin Total 0.5 mg/dL (0.0-1.0); Blood Urea Nitrogen 9 mg/dL (9-16); Calcium 9.7 mg/dL (8.4-10.2); Carbon Dioxide 31 mmol/L (22-29); Chloride 104 mmol/L (96-108); Cholesterol 227 mg/dL (<200); Estimated Glomerular Filt Rate 58; Glucose Fasting 88 mg/dL (60-99); HDL Cholesterol 37 mg/dL (>40); LDL Cholesterol Calculated 168 mg/dL (<100); Potassium 4.6 mmol/L (3.3-5.1); Sodium 139 mmol/L (135-145); Total Protein 7.3 g/dL (6.5-8.0); Triglycerides 112 mg/dL (<150)
[2023-12-21 10:58] LABS: Appearance Urine Clear; Color Urine Yellow; Glucose Urine UA Negative (Negative); Leukocyte Esterase Urine Large (3+) (Negative); Nitrite Urine Negative (Negative); PH 8.5 (5.0-9.0); Specific Gravity - Urine 1.015 (1.005-1.025); UMIC TRIGGER UACC YES; Urine Blood Negative (Negative); Urine Ketones Negative (Negative); Urine Protein Negative (Neg-Trace)
[2023-12-21 11:04] LABS: Bacteria Urine Trace (None Seen); Hyaline Casts Urine 0-2 /LPF (0-2); RBC Urine 0-2 /HPF (0-2); UACC Culture Trigger YES; WBC Urine 21-50 /HPF (0-5)
== END 2023-12-21 09:32 | disposition home or self-care (01) ==
LOC: HO.LAB 09:31
PROVIDERS: PCP Nurse Practitioner Family; Visit Provider Nurse Practitioner Family
DX: Z00.00 Encounter for general adult medical examination without abnormal findings (principal); R82.79 Other abnormal findings on microbiological examination of urine
CPT/HCPCS: 36415; 80053; 80061; 81001; 84443; 85025; 87086; 87147

== ENCOUNTER 2024-01-12 14:39 | Outpatient (AMB) | payer OTHER, SELFPAY ==
--- NOTE | 2024-01-12 14:36 | MHC.PC.OV ---
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 Required: No Is last menstrual period known: No Post menopausal: No Patient : No Allergies No Known Allergies Allergy (Verified 01/12/24 14:36) Tobacco use date assessed: 01/12/24 Dental Screening Dental Screen Date: 12/15/23 HPI HPI Comments History of Present Illness Details 33-year-old assigned female at , presents for a telehealth visit for review of recent lab results She offers no complaints and denies acute symptoms at this time [facility] Medical History GERD (gastroesophageal reflux disease) Depression Asperger syndrome Anxiety 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 Surgical History Hx of wisdom tooth extraction Hx of tonsillectomy No pertinent past surgical history Family History Father COPD (chronic obstructive pulmonary disease) Diabetes Mother Family history of thyroid problem Paternal Aunt Skin cancer Paternal Uncle Skin cancer Social History Housing: House Alcohol intake: current Alcohol intake frequency: holidays/special occasions only Patient Tobacco Use Status: Never used Tobacco e-Cigarette/Vaping Use: Never Used Second Hand Smoke Exposure: Yes Substance Use Type: Marijuana Patient : No service: No Current occupational status: employed Current occupation: [employer] Cognitive needs: No Hearing needs: No Vision needs: No Questionnaire Thrive Questionnaire Date Thrive assessed: 12/15/23 ANNE-7 AMB Questionnaire ANNE-7 Date ANNE - 7 assessed: 12/15/23 Source: Developed by Drs. Yogesh Zaragoza, Zoya Daily, Salty Leblanc and colleagues, with an educational lukas from [employer]. Review of Systems Const Details: Const Denies chills, Denies fatigue, Denies fever(s), Denies headache(s) and Denies weakness ENT Denies dizziness and Denies headache(s) Card Denies chest pain, Denies lightheadedness, Denies dyspnea and Denies other (Palpitations) Resp Denies cough, Denies dyspnea, Denies wheezing and Denies other ( shortness of breath) GI Denies abdominal pain, Denies melena, Denies hematochezia, Denies change in bowel habits, Denies dyspepsia and Denies nausea Denies hematuria and Denies dysuria Musc Denies abnormal gait, Denies myalgias, Denies arthralgias, Denies numbness and Denies tingling Skin/Breast Denies rash, Denies unusual bruising and Denies wounds Neuro Denies abnormal gait, Denies dizziness, Denies headache(s), Denies memory loss, Denies numbness, Denies Sensory deficit (Neuro), Denies tingling and Denies weakness Psych Denies anxiety, Denies depression, Denies memory loss Endo Denies cold intolerance, Denies fatigue, Denies heat intolerance, Denies polydipsia and Denies polyuria Aller/Immun Denies wheezing Physical exam (Primary Care) Tobacco/Smoking Status: Tobacco use Status Tobacco use date assessed 01/12/24 01/12/24 14:38 Patient Tobacco Use Status Never used Tobacco 01/12/24 14:38 e-Cigarette/Vaping Use Never Used 01/12/24 14:38 Thrive Assessment: Date of Thrive Assessment Date Thrive assessed 12/15/23 01/12/24 14:38 Const Other: Telehealth visit. No physical exam Telehealth Telehealth Telehealth Platform: Telephone Location of provider rendering services: practice address Location of patient: address on file Patient Identification confirmed using: Name, : Yes Telehealth method: voice only Patient verbally consented to treatment: Yes Patient verbally consented to billing insurance company: Yes Patient informed of any privacy concerns related to visit: Yes Coding Level of Care Code Tele Est Pt Level 3 (65890) Diagnoses Dyslipidemia E78.5 Time Spent (min) 10 Assessment & Plan Assessment & Plan (1) Dyslipidemia: Code(s): E78.5 - Hyperlipidemia, unspecified Category: Medical Plan: Recent lab results reviewed with the patient. Total cholesterol and LDL are elevated, 227 and 168 respectively. HDL level is slightly low, 37 Advised to limit foods high in saturated fat and avoid foods high in trans fat Routine exercise encouraged Advised to fast for 10-12 hours, may drink water only, and get blood work done a few days before her next visit Follow-up in 3 months or sooner with symptoms or concerns Verbalized understanding and agreed with the plan Orders: Orders Lipid Panel 3 Months E78.5 - Hyperlipidemia, unspecified
== END 2024-01-12 16:04 | disposition home or self-care (01) ==
LOC: HO.HMCFM 14:39
PROVIDERS: PCP Nurse Practitioner Family; Visit Provider Nurse Practitioner Family
DX: E78.5 Hyperlipidemia, unspecified (principal)

== ENCOUNTER → 2024-01-12 14:39 | Outpatient (BNVA) | payer OTHER, SELFPAY | PROVIDERS: PCP Nurse Practitioner Family; Visit Provider Nurse Practitioner Family ==

== ENCOUNTER → 2024-04-17 15:57 | Outpatient (BNVA) | payer OTHER, SELFPAY | PROVIDERS: PCP Nurse Practitioner Family; Visit Provider Nurse Practitioner Family ==

== ENCOUNTER 2024-04-24 11:24 | Outpatient (AMB) | payer OTHER, SELFPAY ==
--- NOTE | 2024-04-24 11:27 | MHC.PC.OV ---
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 Is last menstrual period known: No Post menopausal: No Patient : No Allergies No Known Allergies Allergy (Verified 04/24/24 11:42) Medication List - Last Reconciled 04/24/24 by Keyur Gonzalez CNP alcohol swabs 0 pad topical DIRECTED bupropion HCl XL 150 mg PO QAM citalopram 40 mg PO DAILY lorazepam 1 mg PO DAILY PRN omeprazole 40 mg PO DAILY 3 months simethicone (Gas Relief (simethicone)) 125 mg PO TID PRN testosterone cypionate 100 mg topical QWEEK Tobacco use date assessed: 04/24/24 Dental Screening Dental Screen Date: 04/24/24 Did you have a dental visit in the last 12 months?: No Did you have a dental problem in the last 6 months where you did not have access to dental care?: No Was dental information given to patient?: Patient has dentist HPI HPI Comments History of Present Illness Details 33-year-old female presents with request for an ortho referral to [facility] for follow-up CT on 11/29/2023 at [facility]. He notes that he started experiencing intermittent pain to the right hip 2 months ago and his pain gradually worsened. He described as achiness. The pain averages between 2.5-4 on the pain scale. No tingling, numbness, or loss of sensation. No aggravating or relieving factors. He has not taken any medication for his pain. CT abdomen/pelvis on 11/29/2023 at [facility] revealed the following: Expansive appearing of the inferior right pelvis, as described, with internal groundglass appearance and cortical thinning. Given patient's age, findings are favored to be benign such as due ot fibrous dysplasia with Paget's disease less likely. Follow-up imaging is advised, as below Other findings, as above. Recommend: CT pelvis between 2 and 4 months for expansile right pelvic osseous lesion. Advised to follow up with [facility] ortho and general surgery. 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 Surgical History Hx of wisdom tooth extraction Hx of tonsillectomy No pertinent past surgical history Family History Father COPD (chronic obstructive pulmonary disease) Diabetes Mother Family history of thyroid problem Paternal Aunt Skin cancer Paternal Uncle Skin cancer Social History Housing: House Alcohol intake: current Alcohol intake frequency: holidays/special occasions only Patient Tobacco Use Status: Never used Tobacco e-Cigarette/Vaping Use: Never Used Second Hand Smoke Exposure: Yes Substance Use Type: Marijuana service: No Current occupational status: employed Current occupation: [employer] Cognitive needs: No Hearing needs: No Vision needs: No Questionnaire PHQ-9 Over the last 2 weeks, how often have you been bothered by any of the following problems? 1. Little interest or pleasure in doing things: not at all Source: Developed by Drs. Yogesh Zaragoza, Zoya Daily, Salty Leblanc and colleagues, with an educational lukas from [employer]. Thrive Questionnaire Date Thrive assessed: 12/15/23 I am a: Patient What is your living situation today?: I have a steady place to live Within the past 12 months, did the food you bought not last and you didn't have the money to get more?: I choose not to answer this question Within the past 12 months, did you worry whether your food would run out before you got money to buy more?: I choose not to answer this question Do you have trouble paying for medicines?: No Do you have trouble getting transportation to medical appointments?: No Do you have trouble paying your heating and electricity bill?: No Do you have trouble taking care of your child, family member or friend?: I choose not to answer this question Do you have trouble with day-to-day activities such as bathing, preparing meals, shopping, managing finances, etc.?: I choose not to answer this question Are you currently unemployed and looking for a job?: I choose not to answer this question Are you interested in more education?: I choose not to answer this question Please select the resources that you would like help with: None Currently or been in a relationship where the following occur: I choose not to answer THRIVE Score: 0 AUDIT C Alcohol Use Questionnaire (AUDIT-C) 1. How often do you have a drink containing alcohol?: Monthly or less Total Score: 1 ANNE-7 AMB Questionnaire ANNE-7 Date ANNE - 7 assessed: 12/15/23 Feeling nervous, anxious, or on edge: 0 = Not at all Not being able to stop or control worryin = Not at all Worrying too much about different things: 0 = Not at all Trouble relaxin = Not at all Being so restless that it is hard to sit still: 0 = Not at all Becoming easily annoyed or irritable: 0 = Not at all Feeling afraid as if something awful might happen: 0 = Not at all Total ANNE-7 score (0-4 normal; 5-9 mild; 10-14 moderate; 15-21 severe): 0 Source: Developed by Drs. Yogesh Zaragoza, Zoya Daily, Salty Leblanc and colleagues, with an educational lukas from [employer]. Review of Systems Const Details: Const Denies chills, Denies fatigue, Denies fever(s), Denies headache(s) and Denies weakness ENT Denies dizziness and Denies headache(s) Card Denies chest pain, Denies lightheadedness, Denies dyspnea and Denies other (Palpitations) Resp Denies cough, Denies dyspnea, Denies wheezing and Denies other ( shortness of breath) GI Denies abdominal pain, Denies melena, Denies hematochezia, Denies change in bowel habits, Denies dyspepsia and Denies nausea Denies hematuria and Denies dysuria Musc Reports as per HPI Skin/Breast Denies rash, Denies unusual bruising and Denies wounds Neuro Denies abnormal gait, Denies dizziness, Denies headache(s), Denies memory loss, Denies numbness, Denies Sensory deficit (Neuro), Denies tingling and Denies weakness Psych Denies anxiety, Denies depression, Denies memory loss Endo Denies cold intolerance, Denies fatigue, Denies heat intolerance, Denies polydipsia and Denies polyuria Aller/Immun Denies wheezing Physical exam (Primary Care) Vital Signs: Last Vital Signs Temp 98.2 F 04/24/24 11:31 Pulse 65 04/24/24 11:31 Resp 20 04/24/24 11:31 BP 105/58 L 04/24/24 11:31 Pulse Ox 97 04/24/24 11:31 Oxygen Delivery Method Room Air 04/24/24 11:31 BMI result Body Mass Index 32.1 Tobacco/Smoking Status: Tobacco use Status Tobacco use date assessed 04/24/24 04/24/24 11:31 Patient Tobacco Use Status Never used Tobacco 04/24/24 11:31 e-Cigarette/Vaping Use Never Used 04/24/24 11:31 Thrive Assessment: Date of Thrive Assessment Date Thrive assessed 12/15/23 04/24/24 11:31 Currently or been in a relationship where the following occur: I choose not to answer Const Other: General: no acute distress and well developed Nutritional Appearance: well nourished Orientation/consciousness: patient oriented x3 HENMT Head: Yes normocephalic and Yes atraumatic Eyes General: appearance normal, both eyes and all related structures Pupils: Equal, round and reactive pupils present EOM: EOMs intact bilaterally Resp Effort & Inspection: normal respiratory effort Auscultation: clear to auscultation bilaterally Cardio Rate: regular rate Rhythm: regular rhythm Heart sounds: S1 normal heart sound present, S2 normal heart sound present, no gallops, no murmurs and no rubs GI Palpation (GI): No Abdominal aortic bruit present, Soft to palpation, nontender, No hepatosplenomegaly present and No Rebound tenderness present Auscultation: normal bowel sounds General: Yes no CVA tenderness Back/Spine/Pelvis Back: no CVA tenderness Cervical Spine: cervical ROM normal and No Cervical spine tenderness Thoracic/Lumbar Spine: thoraco-lumbar ROM normal, No pain with thoraco-lumbar ROM, No thoracic spinal tenderness and No lumbar spinal tenderness Extrem General: Yes normal to inspection, No edema and No calf tenderness Skin General: warm and dry. Normal skin color. Normal skin turgor Neuro General: patient oriented x3, gait normal and no focal neuro deficit Cranial nerves: Yes Equal, round and reactive pupils present Cognition (Neuro): normal cognition Gait exam (Neuro): Normal gait present Sensory Exam: No Sensory deficit (Neuro) Psych Appearance: grossly normal Affect: normal affect Attitude: cooperative Thought process: Normal thought process present Coding Level of Care Code Est Pt Level 3 (63728) Diagnoses Acute right hip pain M25.551 Dyslipidemia E78.5 Assessment & Plan Assessment & Plan (1) Acute right hip pain: Code(s): M25.551 - Pain in right hip Category: Medical Plan: Intermittent right hip pain x2 months. CT abdomen/pelvis on 11/29/2023 at [facility] revealed the following: Expansive appearing of the inferior right pelvis, as described, with internal groundglass appearance and cortical thinning. Given patient's age, findings are favored to be benign such as due ot fibrous dysplasia with Paget's disease less likely. Follow-up imaging is advised, as below Other findings, as above. Recommend: CT pelvis between 2 and 4 months for expansile right pelvic osseous lesion. Advised to follow up with [facility] and general surgery. He has not follow-up with [facility] origin or General surgery and requests a referral to [facility]. Normal range of motion of the right hip with minimal discomfort. No overt injury or trauma. May take Tylenol ibuprofen as needed for pain or discomfort. Warm/cool compresses and stretching as tolerable encouraged. Urgent referral made to [facility] orthopedics since the patient has not follow-up in several months. Return with worsening or new symptoms. Verbalized understanding and agreed with treatment plan. (2) Dyslipidemia: Code(s): E78.5 - Hyperlipidemia, unspecified Category: Medical Plan: He has not performed lipid panel blood work done or follow-up as planned. Advised to perform fasting lipid panel blood work and follow-up for telehealth visit as planned. Verbalized understanding and agreed with the plan. Orders: Referrals Orthopedics Referral M25.551 - Pain in right hip
[2024-04-24 11:31] VITALS: BP 105/58; PULSE 65; RESP 20; TEMP 36.8; O2SAT 97; BMI 32.1
--- OUTSIDE RECORDS SUMMARY | 2024-04-24 13:18 | XMS_ITS | Encounter Summary ---
Author Organization [facility] Address [address] [place] [phone] Phone Care Team Providers Care Airline Lounge Receptionist Name Role Phone Karen Albarran MD Primary Care Provider Unava ilable Encounter Details Date Type Department Care Team (Late st Contact Info) Description 11/04/2010 Documentation [facility] [address] [place], [place] [phone] Family Medicine, Physician [address] [place] [address] Social History Tobacco Use Types Packs/Day Years Used Date Smoking Tobacco: Never Assessed Comments Unknown Sex and Gender Information Value Date Recorded Sex Assigned at Not on file Legal Sex Female 4:42 PM EDT Gender Identity Not on file Sexual Orientation Not on file documented as of this encounter Plan of Treatment Not on file documented as of this encounter Visit Diagnoses Not on filedocumented in this encounter Care Teams Airline Lounge Receptionist Relationship Specialty Start Date End Date Karen Albarran MD PCP - General 10/21/16 documented as of this encounter
--- OUTSIDE RECORDS SUMMARY | 2024-04-24 13:18 | XMS_ITS | Encounter Summary ---
Author Organization [facility] Address [address] [place] [address] Phone Care Team Providers Care Director Advertising Name Role Phone Karen Albarran MD Primary Care Provider Unava ilable Encounter Details Date Type Department Care Team (Late st Contact Info) Description 02/01/2011 Documentation [facility] [address] [place], [place] [phone] Family Medicine, Physician [address] [place] [address] Social History Tobacco Use Types Packs/Day Years [...] on filedocumented in this encounter Care Teams Director Advertising Relationship Specialty Start Date End Date Karen Albarran MD PCP - General 10/21/16 documented as of this encounter
--- OUTSIDE RECORDS SUMMARY | 2024-04-24 13:19 | XMS_ITS | Encounter Summary ---
Author Organization [facility] Address [address] [place] [address] Phone Care Team Providers Care Rivet Sorter Name Role Phone Karen Albarran MD Primary Care Provider Unava ilable Encounter Details Date Type Department Care Team (Late st Contact Info) Description 10/27/2016 Conversion Encounter [facility] - [address] [address] Social History Tobacco Use Types Packs/Day Years Used Date Smoking Tobacco: Never Comments:Never smoker Comments Unknown Sex and Gender Information Value Date Recorded Sex Assigned at Not on file Legal Sex Female 4:42 PM EDT Gender Identity Not on file Sexual Orientation Not on file documented as of this encounter Plan of Treatment Not on file documented as of this encounter Visit Diagnoses Not on filedocumented in this encounter Care Teams Rivet Sorter Relationship Specialty Start Date End Date Karen Albarran MD PCP - General 10/21/16 documented as of this encounter
--- OUTSIDE RECORDS SUMMARY | 2024-04-24 13:19 | XMS_ITS | Encounter Summary ---
Author Organization [facility] Address [address] [place] [phone] Phone Care Team Providers Care Practice Professional Name Role Phone Karen Albarran MD Primary Care Provider Unava ilable Encounter Details Date Type Department Care Team (Late st Contact Info) Description 09/30/2011 Documentation [facility] [address] [place], [place] [phone] Family Medicine, Physician [address] [place] [address] Social History Tobacco Use Types Packs/Day Years [...] on filedocumented in this encounter Care Teams Practice Professional Relationship Specialty Start Date End Date Karen Albarran MD PCP - General 10/21/16 documented as of this encounter
--- OUTSIDE RECORDS SUMMARY | 2024-04-24 13:19 | XMS_ITS | Encounter Summary ---
Author Organization [facility] Address [address] [place] [address] Phone Care Team Providers Care Landscape Horticulture Instructor Name Role Phone Karen Albarran MD Primary Care Provider Unava ilable Encounter Details Date Type Department Care Team (Late st Contact Info) Description 01/11/2012 Documentation [facility] [address] [place], [place] [phone] Family Medicine, Physician [address] [place] [address] Social History Tobacco Use Types Packs/Day Years [...] on filedocumented in this encounter Care Teams Landscape Horticulture Instructor Relationship Specialty Start Date End Date Karen Albarran MD PCP - General 10/21/16 documented as of this encounter
--- OUTSIDE RECORDS SUMMARY | 2024-04-24 13:19 | XMS_ITS | Clinical Summary ---
Author Organization [facility] Address [address] [place] [phone] Phone Care Team Providers Care Sinter Feeder Name Role Phone Karen Albarran MD Primary Care Provider Unava ilable Immunizations Immunization Administration Dates Next Due DTP 04/30/1993, 2,1991,08/18 DTaP 5 11/13/1996 Hep B, ped/adol 03/17/1997,11/13/1996,03/04/1996 Hib (PRP-T) 11/11/1992, 2,1991,08/18 Influenza Split 11/30/2011,02/22/2010 MMR 03/04/1996,11/11/1992 Meningococcal Conj (Menactra) MCV4P 02/22/2010 OPV 03/04/1996, 4,1991,08/18 Td (adult) (MBL), 2 Lf tetan us toxoid, PF, adsorbed 09/27/2004 Tdap 02/22/2010 Family History Relation Name Status Comments Brother Alive Brother: Alive and well Father Alive Father: Alive a nd well Half-Sister Alive Half sister (M) : Alive and well Maternal Grandfather Alive Materna l grandfather: Congestive heart failure Mother Alive Mother: Alive a nd well Paternal Grandfather Paterna l grandfather: , Cancer, colon, Myocardial infarction Paternal Grandmother Paterna l grandmother: cardiovascular disease Social History Tobacco Use Types Packs/Day Years Used Date Smoking Tobacco: Never Comments:Never smoker Comments Unknown Sex and Gender Information Value Date Recorded Sex Assigned at Not on file Legal Sex Female 4:42 PM EDT Gender Identity Not on file Sexual Orientation Not on file Last Filed Vital Signs Vital Sign Reading Time Taken Comments Blood Pressure 120/62 11/30/2011 12:00 AM EDT Pulse 120 04/15/2010 12:00 AM EST Temperature 36.3 ??C (97.3 ??F) 09/30/2011 12:00 AM E DT Respiratory Rate - - Oxygen Saturation - - Inhaled Oxygen Concentration - - Weight 91.6 kg (202 lb) 11/30/2011 12:00 AM EDT Height 160 cm (5' 3 ) 11/30/2011 12:00 AM EDT Body Mass Index 35.78 11/30/2011 12:00 AM EDT Plan of Treatment Health Maintenance Due Date Last Done Comments Varicella Vaccines (1 of 2 - 13+ 2-dose series) 06/17/2004 DTaP,Tdap,and Td Vaccines (7 - Td or Tdap) 02/23/2020 02/22/2010, 09/27/2004, 11/13/1996, Additional history exists Influenza Vaccines (#1) 2023 11/30/2011, 02/22 COVID-19 Vaccine ( season) 2023 HIB Vaccines Completed 11/11/1992, 10/1991, 1991, Additional history exists IPV Vaccines Completed 03/04/1996, 04/13, 1991, Additional history exists MMR Vaccines Completed 03/04/1996, 11/11/1992 Hepatitis B Vaccines Completed 03/17/1997, 11/13/1996, 03/04/1996 Meningococcal Vaccine Completed 02/22/2010 HPV Vaccines Aged Out No longer eligi ble based on patient's age to complete this topic Hepatitis A Vaccines Aged Out No long er eligible based on patient's age to complete this topic Men B Vaccine Aged Out No longer elig ible based on patient's age to complete this topic Pneumococcal Vaccine Aged Out No long er eligible based on patient's age to complete this topic Care Teams Sinter Feeder Relationship Specialty Start Date End Date Karen Albarran MD PCP - General 10/21/16
--- OUTSIDE RECORDS SUMMARY | 2024-04-24 13:19 | XMS_ITS | Encounter Summary ---
Author Organization [facility] Address [address] [place] [phone] Phone Care Team Providers Care Rn Hematology Name Role Phone Karen Albarran MD Primary Care Provider Unava ilable Encounter Details Date Type Department Care Team (Late st Contact Info) Description 12/01/2011 Documentation [facility] [address] [place], [place] [phone] Family Medicine, Physician [address] [place] [address] Social History Tobacco Use Types Packs/Day Years [...] on filedocumented in this encounter Care Teams Rn Hematology Relationship Specialty Start Date End Date Karen Albarran MD PCP - General 10/21/16 documented as of this encounter
--- OUTSIDE RECORDS SUMMARY | 2024-04-24 13:19 | XMS_ITS | Encounter Summary ---
Author Organization [facility] Address [address] [place] [phone] Phone Care Team Providers Care Rib Trim Separator Name Role Phone Karen Albarran MD Primary Care Provider Unava ilable Encounter Details Date Type Department Care Team (Late st Contact Info) Description 11/26/2009 Documentation [facility] [address] [place], [place] [phone] Family Medicine, Physician [address] [place] [address] Social History Tobacco Use Types Packs/Day Years [...] on filedocumented in this encounter Care Teams Rib Trim Separator Relationship Specialty Start Date End Date Karen Albarran MD PCP - General 10/21/16 documented as of this encounter
--- OUTSIDE RECORDS SUMMARY | 2024-04-24 13:19 | XMS_ITS | Encounter Summary ---
Author Organization [facility] Address [address] [place] [address] Phone Care Team Providers Care Log Washer Name Role Phone Karen Albarran MD Primary Care Provider Unava ilable Encounter Details Date Type Department Care Team (Late st Contact Info) Description 12/01/2011 Documentation [facility] Family Medicine [address] [place], [place] [phone] Family Medicine, Physician [address] [place] [address] Social History Tobacco Use Types Packs/Day Years [...] on filedocumented in this encounter Care Teams Log Washer Relationship Specialty Start Date End Date Karen Albarran MD PCP - General 10/21/16 documented as of this encounter
== END 2024-04-24 12:00 | disposition home or self-care (01) ==
PROVIDERS: PCP Nurse Practitioner Family; Visit Provider Nurse Practitioner Family
DX: M25.551 Pain in right hip (principal); E78.5 Hyperlipidemia, unspecified

== ENCOUNTER → 2024-04-24 11:24 | Outpatient (BNVA) | payer OTHER, SELFPAY | PROVIDERS: PCP Nurse Practitioner Family; Visit Provider Nurse Practitioner Family | DX: M25.551 Pain in right hip (principal); E78.5 Hyperlipidemia, unspecified | CPT/HCPCS: 99212 ==

== ENCOUNTER 2024-05-09 12:43 | Outpatient (REF) | payer OTHER, SELFPAY ==
[2024-05-09 13:58] LABS: Cholesterol 204 mg/dL (<200); HDL Cholesterol 38 mg/dL (>40); LDL Cholesterol Calculated 150 mg/dL (<100); Triglycerides 83 mg/dL (<150)
--- OUTSIDE RECORDS SUMMARY | 2024-05-09 15:07 | XMS_ITS | Encounter Summary ---
Author Organization [facility] Address [address] [place] [address] Phone Care Team Providers Care Cheese Factory Worker Name Role Phone Karen Albarran MD Primary Care Provider Unava ilable Encounter Details Date Type Department Care Team (Late st Contact Info) Description 11/26/2009 Documentation [facility] [address] [place], [place] [phone] Family Medicine, Physician [address] [place] [address] Social History Tobacco Use Types Packs/Day Years [...] on filedocumented in this encounter Care Teams Cheese Factory Worker Relationship Specialty Start Date End Date Karen Albarran MD PCP - General 10/21/16 documented as of this encounter
--- OUTSIDE RECORDS SUMMARY | 2024-05-09 15:07 | XMS_ITS | Encounter Summary ---
Author Organization [facility] Address [address] [place] [address] Phone Care Team Providers Care Endodontic Assistant Name Role Phone Karen Albarran MD Primary Care Provider Unava ilable Encounter Details Date Type Department Care Team (Late st Contact Info) Description 12/01/2011 Documentation [facility] Family Medicine [address] [place], [place] [phone] Family Medicine, Physician [address] [place] [address] Social History Tobacco Use Types Packs/Day Years [...] on filedocumented in this encounter Care Teams Endodontic Assistant Relationship Specialty Start Date End Date Karen Albarran MD PCP - General 10/21/16 documented as of this encounter
--- OUTSIDE RECORDS SUMMARY | 2024-05-09 15:07 | XMS_ITS | Encounter Summary ---
Author Organization [facility] Address [address] [place] [address] Phone Care Team Providers Care Forestry Conservation Worker Name Role Phone Karen Albarran MD Primary Care Provider Unava ilable Encounter Details Date Type Department Care Team (Late st Contact Info) Description 01/11/2012 Documentation [facility] Family Medicine [address] [place], [place] [phone] Family Medicine, Physician [address] [place] [address] Social History Tobacco Use Types Packs/Day Years [...] on filedocumented in this encounter Care Teams Forestry Conservation Worker Relationship Specialty Start Date End Date Karen Albarran MD PCP - General 10/21/16 documented as of this encounter
--- OUTSIDE RECORDS SUMMARY | 2024-05-09 15:07 | XMS_ITS | Encounter Summary ---
Author Organization [facility] Address [address] [place] [address] Phone Care Team Providers Care Senior Report Developer Name Role Phone Karen Albarran MD Primary Care Provider Unava ilable Encounter Details Date Type Department Care Team (Late st Contact Info) Description 12/01/2011 Documentation [facility] Family Medicine [address] [place], [place] [phone] Family Medicine, Physician [address] [place] [address] Social History Tobacco Use Types Packs/Day Years [...] on filedocumented in this encounter Care Teams Senior Report Developer Relationship Specialty Start Date End Date Karen Albarran MD PCP - General 10/21/16 documented as of this encounter
--- OUTSIDE RECORDS SUMMARY | 2024-05-09 15:07 | XMS_ITS | Clinical Summary ---
Author Organization [facility] Address [address] [place] [address] Phone Care Team Providers Care Mold Making Supervisor Name Role Phone Karen Albarran MD Primary [...] age to complete this topic Care Teams Mold Making Supervisor Relationship Specialty Start Date End Date Karen Albarran MD PCP - General 10/21/16
--- OUTSIDE RECORDS SUMMARY | 2024-05-09 15:07 | XMS_ITS | Encounter Summary ---
Author Organization [facility] Address [address] [place] [address] Phone Care Team Providers Care Hull Outfit Supervisor Name Role Phone Karen Albarran MD Primary Care Provider Unava ilable Encounter Details Date Type Department Care Team (Late st Contact Info) Description 09/30/2011 Documentation [facility] Family [facility] [address] [place], [place] [phone] Family Medicine, Physician [address] [place] [address] Social History Tobacco Use Types Packs/Day Years [...] on filedocumented in this encounter Care Teams Hull Outfit Supervisor Relationship Specialty Start Date End Date Karen Albarran MD PCP - General 10/21/16 documented as of this encounter
--- OUTSIDE RECORDS SUMMARY | 2024-05-09 15:07 | XMS_ITS | Encounter Summary ---
Author Organization [facility] Address [address] [place] [address] Phone Care Team Providers Care Press Breaker Name Role Phone Karen Albarran MD Primary Care Provider Unava ilable Encounter Details Date Type Department Care Team (Late st Contact Info) Description 02/01/2011 Documentation [facility] [address] [place], [place] [phone] Family Medicine, Physician [address] [place] [address] Social History Tobacco Use Types Packs/Day Years [...] on filedocumented in this encounter Care Teams Press Breaker Relationship Specialty Start Date End Date Karen Albarran MD PCP - General 10/21/16 documented as of this encounter
--- OUTSIDE RECORDS SUMMARY | 2024-05-09 15:07 | XMS_ITS | Encounter Summary ---
Author Organization [facility] Address [address] [place] [address] Phone Care Team Providers Care Fabric Finisher Name Role Phone Karen Albarran MD Primary Care Provider Unava ilable Encounter Details Date Type Department Care Team (Late st Contact Info) Description 10/27/2016 Conversion Encounter [facility] - [address] [address] Social History Tobacco Use Types Packs/Day Years [...] on filedocumented in this encounter Care Teams Fabric Finisher Relationship Specialty Start Date End Date Karen Albarran MD PCP - General 10/21/16 documented as of this encounter
--- OUTSIDE RECORDS SUMMARY | 2024-05-09 15:07 | XMS_ITS | Encounter Summary ---
Author Organization [facility] Address [address] [place] [address] Phone Care Team Providers Care Canvas Goods Maker Name Role Phone Karen Albarran MD Primary Care Provider Unava ilable Encounter Details Date Type Department Care Team (Late st Contact Info) Description 11/04/2010 Documentation [facility] [address] [place], [place] [phone] Family Medicine, Physician [address] [place] [address] Social History Tobacco Use Types Packs/Day Years [...] on filedocumented in this encounter Care Teams Canvas Goods Maker Relationship Specialty Start Date End Date Karen Albarran MD PCP - General 10/21/16 documented as of this encounter
== END 2024-05-09 12:44 | disposition home or self-care (01) ==
LOC: HO.LAB 12:43
PROVIDERS: PCP Nurse Practitioner Family; Visit Provider Nurse Practitioner Family
DX: E78.5 Hyperlipidemia, unspecified (principal)
CPT/HCPCS: 36415; 80061

== ENCOUNTER 2024-06-05 14:09 | Outpatient (AMB) | payer OTHER, SELFPAY ==
--- NOTE | 2024-06-05 14:05 | MHC.PC.OV ---
Intake Visit Reasons: lab review Intake Note: patient here for telehealth follow up for lab results. Anhydrous Ammonia Production Supervisor Required: No Is last menstrual period known: No Post menopausal: No Patient : No Allergies No Known Allergies Allergy (Verified 06/05/24 14:05) Tobacco use date assessed: 06/05/24 Dental Screening Dental Screen Date: 06/05/24 Did you have a dental visit in the last 12 months?: No Did you have a dental problem in the last 6 months where you did not have access to dental care?: No Was dental information given to patient?: Patient has dentist HPI HPI Comments History of Present Illness Details 33-year-old assigned female at , presents for a telehealth visit for review of recent lab results. She offers no complaints and denies acute symptoms at this time. 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 Surgical History Hx of wisdom tooth extraction Hx of tonsillectomy No pertinent past surgical history Family History Father COPD (chronic obstructive pulmonary disease) Diabetes Mother Family history of thyroid problem Paternal Aunt Skin cancer Paternal Uncle Skin cancer Social History Housing: House Alcohol intake: current Alcohol intake frequency: holidays/special occasions only Patient Tobacco Use Status: Never used Tobacco e-Cigarette/Vaping Use: Never Used Second Hand Smoke Exposure: Yes Substance Use Type: Marijuana Patient : No service: No Current occupational status: employed Current occupation: [employer] Simple Cognitive needs: No Hearing needs: No Vision needs: No Questionnaire Thrive Questionnaire Date Thrive assessed: 12/15/23 ANNE-7 AMB Questionnaire ANNE-7 Date ANNE - 7 assessed: 12/15/23 Source: Developed by Drs. Yogesh Zaragoza, oZya Daily, Salty Leblanc and colleagues, with an educational lukas from [employer]. Review of Systems Const Details: Denies chills, Denies fatigue, Denies fever(s), Denies headache(s) and Denies weakness Cardiac Denies chest pain, Denies claudication, Denies leg edema, Denies lightheadedness, Denies palpitations, Denies dyspnea, Denies dyspnea on exertion, Denies orthopnea and Denies other (Loss of consciousness) Resp Denies cough, Denies excessive phlegm production, Denies dyspnea, Denies dyspnea on exertion, Denies snoring and Denies wheezing Physical exam (Primary Care) Tobacco/Smoking Status: Tobacco use Status Tobacco use date assessed 06/05/24 06/05/24 14:07 Patient Tobacco Use Status Never used Tobacco 06/05/24 14:07 e-Cigarette/Vaping Use Never Used 06/05/24 14:07 Thrive Assessment: Date of Thrive Assessment Date Thrive assessed 12/15/23 06/05/24 14:07 Const Other: Patient is alert and oriented x3. Coding Level of Care Code Tele Est Pt Level 3 (17188) Diagnoses Dyslipidemia E78.5 Time Spent (min) 10 Assessment & Plan Assessment & Plan (1) Dyslipidemia: Code(s): E78.5 - Hyperlipidemia, unspecified Category: Medical Plan: Recent total cholesterol level is slightly elevated, 204 from 227, LDL level is elevated, 150 from 168, HDL level is slightly low, 38 from 37. Advised to limit foods high in saturated fat and avoid foods high in trans fat. Routine exercise encouraged. Fast for 10-12 hours, may drink water, and before lipid panel blood work 2-3 days before next visit. Follow-up for telehealth visit in 3 months. Return sooner with symptoms or concerns. Verbalized understanding and agreed with the treatment plan. Orders: Orders Lipid Panel 3 Months E78.5 - Hyperlipidemia, unspecified
== END 2024-06-05 15:00 | disposition home or self-care (01) ==
LOC: HO.HMCFM 14:09
PROVIDERS: PCP Nurse Practitioner Family; Visit Provider Nurse Practitioner Family
DX: E78.5 Hyperlipidemia, unspecified (principal)

== ENCOUNTER 2025-02-27 08:11 | Emergency (ER) | payer OTHER, SELFPAY ==
--- NOTE | ~2025-02-27 | XR_ITS ---
EXAMINATION: XR CHEST 1 VIEW HISTORY: rule out aspiration COMPARISON: There are no prior studies available for comparison. FINDINGS: A single AP portable view of the chest performed at 10:37 AM is submitted. The lungs are expanded and clear. There is no pleural effusion, pneumothorax, or pulmonary vascular congestion. The heart is normal in size. The bones are intact. XR/XR chest 1V IMPRESSION: Clear lungs. Electronically signed by: Yogesh Beatty MD 02/27/2025 10:47 AM JAMISON
[2025-02-27 08:12] VITALS: BP 130/84; PULSE 105; RESP 18; TEMP 36.5; O2SAT 100; BMI 30.5
[2025-02-27 08:45] LABS: MANUAL DIFF FLAG NO
[2025-02-27 08:46] LABS: Hematocrit 47.8 % (37.0-47.0); Hemoglobin 16.2 g/dl (12.0-16.0); Imm Gran Abs Auto 0.04 X10*3/uL (0.00-0.03); Imm Gran Pct Auto 0.5 % (0.0-0.4); Lymphocytes Absolute Auto 1.7 X10*3/uL (1.2-4.9); Mean Corpuscular HGB Conc 33.9 g/dl (31.0-35.0); Mean Corpuscular Hemoglobin 29.0 pg (27.0-33.0); Mean Corpuscular Volume 85.7 fL (80.0-98.0); NRBC Abs Auto 0.000 X10*3/uL (0.0-0.012); NRBC Pct Auto 0.0 /100WBC (0.0-0.2); Platelet Count 363 X10*3/uL (160-400); Red Blood Count 5.58 X10*6/uL (4.20-5.50); White Blood Count 7.3 X10*3/uL (4.8-10.8)
[2025-02-27 08:47] LABS: Appearance Urine Clear; Glucose Urine UA Negative (Negative); PH 6.0 (5.0-9.0); Specific Gravity - Urine 1.020 (1.005-1.025); UMIC TRIGGER UACC YES
[2025-02-27 08:53] LABS: UACC Culture Trigger YES
--- OUTSIDE RECORDS SUMMARY | 2025-02-27 08:58 | XMS_ITS | Encounter Summary ---
Author Organization [facility] Address [address] [place] [address] Phone Care Team Providers Care Asset Recovery Specialist Name Role Phone Karen Albarran MD Primary Care Provider Unava ilable Encounter Details Date Type Department Care Team (Late st Contact Info) Description 01/11/2012 Documentation [facility] Family Medicine [address] [place], [place] [phone] Family Medicine, Physician [address] [place] [address] Social History Tobacco Use Types Packs/Day Years [...] on filedocumented in this encounter Care Teams Asset Recovery Specialist Relationship Specialty Start Date End Date Karen Albarran MD PCP - General 10/21/16 documented as of this encounter
--- OUTSIDE RECORDS SUMMARY | 2025-02-27 08:58 | XMS_ITS | Encounter Summary ---
Author Organization [facility] Address [address] [place] [address] Phone Care Team Providers Care Dance Teacher Name Role Phone Karen Albarran MD Primary Care Provider Unava ilable Encounter Details Date Type Department Care Team (Late st Contact Info) Description 11/04/2010 Documentation [facility] [address] [place], [place] [phone] Family Medicine, Physician [address] [place] [address] Social History Tobacco Use Types Packs/Day Years [...] on filedocumented in this encounter Care Teams Dance Teacher Relationship Specialty Start Date End Date Karen Albarran MD PCP - General 10/21/16 documented as of this encounter
--- OUTSIDE RECORDS SUMMARY | 2025-02-27 08:58 | XMS_ITS | Encounter Summary ---
Author Organization [facility] Address [address] [place] [address] Phone Care Team Providers Care Immersion Metal Cleaner Name Role Phone Karen Albarran MD Primary Care Provider Unava ilable Encounter Details Date Type Department Care Team (Late st Contact Info) Description 10/27/2016 Conversion Encounter [facility] - [address] [address] Social History Tobacco Use Types Packs/Day Years [...] on filedocumented in this encounter Care Teams Immersion Metal Cleaner Relationship Specialty Start Date End Date Karen Albarran MD PCP - General 10/21/16 documented as of this encounter
--- OUTSIDE RECORDS SUMMARY | 2025-02-27 08:58 | XMS_ITS | Encounter Summary ---
Author Organization [facility] Address [address] [place] [address] Phone Care Team Providers Care Nurse Rn Bsn Name Role Phone Karen Albarran MD Primary Care Provider Unava ilable Encounter Details Date Type Department Care Team (Late st Contact Info) Description 12/01/2011 Documentation [facility] Family Medicine [address] [place], [place] [phone] Family Medicine, Physician [address] [place] [address] Social History Tobacco Use Types Packs/Day Years [...] on filedocumented in this encounter Care Teams Nurse Rn Bsn Relationship Specialty Start Date End Date Karen Albarran MD PCP - General 10/21/16 documented as of this encounter
--- OUTSIDE RECORDS SUMMARY | 2025-02-27 08:58 | XMS_ITS | Encounter Summary ---
Author Organization [facility] Address [address] [place] [address] Phone Care Team Providers Care Cash Teller Name Role Phone Karen Albarran MD Primary Care Provider Unava ilable Encounter Details Date Type Department Care Team (Late st Contact Info) Description 12/01/2011 Documentation [facility] Family Medicine [address] [place], [place] [phone] Family Medicine, Physician [address] [place] [address] Social History Tobacco Use Types Packs/Day Years [...] on filedocumented in this encounter Care Teams Cash Teller Relationship Specialty Start Date End Date Karen Albarran MD PCP - General 10/21/16 documented as of this encounter
--- OUTSIDE RECORDS SUMMARY | 2025-02-27 08:58 | XMS_ITS | Clinical Summary ---
Author Organization [facility] Address [address] [place] [address] Phone Care Team Providers Care Volleyball Coach Name Role Phone Karen Albarran MD Primary [...] 120 04/15/2010 12:00 AM EST Temperature 36.3 C (97.3 F) 09/30/2011 12:00 AM EDT Respiratory Rate - - Oxygen Saturation - - Inhaled Oxygen Concentration - - Weight 91.6 kg (202 lb) 11/30/2011 12:00 AM EDT Height 160 cm (5' 3 ) 11/30/2011 12:00 AM EDT Body Mass Index 35.78 11/30/2011 12:00 AM EDT Plan of Treatment Health Maintenance Due Date Last Done Comments Varicella Vaccines (1 of 2 - 13+ 2-dose series) 06/17/2004 HPV Vaccines (1 - 3-dose SCDM series) 06/17/2018 DTaP,Tdap,and Td Vaccines (7 - Td or Tdap) 02/23/2020 02/22/2010, 09/27/2004, 11/13/1996, Additional history exists Influenza Vaccines (#1) 2024 11/30/2011, 02/22 COVID-19 Vaccine ( season) 2024 HIB Vaccines Completed 11/11/1992, 10/1991, 1991, Additional history exists IPV Vaccines Completed 03/04/1996, 04/13, 1991, Additional history exists MMR Vaccines Completed 03/04/1996, 11/11/1992 Hepatitis B Vaccines Completed 03/17/1997, 11/13/1996, 03/04/1996 Meningococcal Vaccine Completed 02/22/2010 Hepatitis A Vaccines Aged Out No long er eligible based on patient's age to complete this topic Men B Vaccine Aged Out No longer elig ible based on patient's age to complete this topic Pneumococcal Vaccine Aged Out No long er eligible based on patient's age to complete this topic Care Teams Volleyball Coach Relationship Specialty Start Date End Date Karen Albarran MD PCP - General 10/21/16
--- OUTSIDE RECORDS SUMMARY | 2025-02-27 08:58 | XMS_ITS | Encounter Summary ---
Author Organization [facility] Address [address] [place] [address] Phone Care Team Providers Care Gas Distribution And Emergency Clerk Name Role Phone Karen Albarran MD Primary Care Provider Unava ilable Encounter Details Date Type Department Care Team (Late st Contact Info) Description 02/01/2011 Documentation [facility] [address] [place], [place] [phone] Family Medicine, Physician [address] [place] [address] Social History Tobacco Use Types Packs/Day Years [...] on filedocumented in this encounter Care Teams Gas Distribution And Emergency Clerk Relationship Specialty Start Date End Date Karen Albarran MD PCP - General 10/21/16 documented as of this encounter
--- OUTSIDE RECORDS SUMMARY | 2025-02-27 08:58 | XMS_ITS | Encounter Summary ---
Author Organization [facility] Address [address] [place] [address] Phone Care Team Providers Care Force Variation Equipment Tender Name Role Phone Karen Albarran MD Primary Care Provider Unava ilable Encounter Details Date Type Department Care Team (Late st Contact Info) Description 11/26/2009 Documentation [facility] [address] [place], [place] 1500[address] Family Medicine, Physician [address] [place] [address] Social History Tobacco Use Types Packs/Day Years [...] on filedocumented in this encounter Care Teams Force Variation Equipment Tender Relationship Specialty Start Date End Date Karen Albarran MD PCP - General 10/21/16 documented as of this encounter
--- OUTSIDE RECORDS SUMMARY | 2025-02-27 08:58 | XMS_ITS | Encounter Summary ---
Author Organization [facility] Address [address] [place] [address] Phone Care Team Providers Care Hide Handler Name Role Phone Karen Albarran MD Primary Care Provider Unava ilable Encounter Details Date Type Department Care Team (Late st Contact Info) Description 09/30/2011 Documentation [facility] Family Medicine [address] [place], [place] [phone] Family Medicine, Physician [address] [place] [address] Social History Tobacco Use Types Packs/Day Years [...] on filedocumented in this encounter Care Teams Hide Handler Relationship Specialty Start Date End Date Karen Albarran MD PCP - General 10/21/16 documented as of this encounter
--- NOTE | 2025-02-27 09:03 | ED.NAVMDI ---
HPI - Nausea/Vomiting/Diarrhea General Chief complaint: Nausea/Vomiting/Diarrhea Stated complaint: vomiting Time Seen by Provider: 02/27/25 09:00 Source: patient and RN notes reviewed Mode of arrival: ambulatory Limitations: no limitations History of Present Illness ED Provider: rIene Harley PA-C HPI Narrative: Catherine is transgender female presents with recurrent episodes of nausea and vomiting (~6 times/day) that occur randomly and often after attempting to eat. PMH sig for anxiety, depression, GERD, austistic spectrum syndrome Last emesis was yesterday evening. She reports associated profuse, ?dripping? sweats and a sensation of near-syncope with vomiting. Because of fear of vomiting she has eaten very little (a few bites of noodles and crackers last night). She continues to sip water and last urinated overnight; denies dysuria. Abdominal discomfort is described as ?stomach firing,? not sharp pain. She notes bloating and ?a lot of air.? Bowel movements have been watery at times but without blood; bright-red dripping blood with bowel movements is attributed to hemorrhoids. No hematemesis, no cough or upper-respiratory symptoms. History notable for prior upper endoscopy that was aborted secondary to coding with resuscitation required, and colonoscopy (dates unclear). She follows with gastroenterology through [facility]. No prior abdominal surgeries. Medication history: Previously prescribed omeprazole 20 mg once daily; insurance no longer covers it, so she intermittently uses OTC omeprazole when able. Patient states she is pretty good with it when able to obtain it. She has used Pepto-Bismol at home. Denies alcohol; uses marijuana, last use late last night, without triggering vomiting. Constitutional: Positive for drenching sweats and fatigue; denies fever or chills. Gastrointestinal: Positive for nausea, vomiting (~6/day), abdominal discomfort, bloating/air, intermittent watery diarrhea, bright-red blood per rectum from hemorrhoids. Denies hematemesis. Genitourinary: Denies dysuria. Respiratory: Denies cough or upper-respiratory symptoms. Neurologic: Reports near-syncope associated with vomiting. Related Data Home Medications ?Medication ?Instructions ?Recorded ?Confirmed alcohol swabs 0 pad topical DIRECTED 08/31/20 03/04/25 citalopram 40 mg tablet 40 mg PO DAILY 08/31/20 03/04/25 testosterone cypionate 200 mg/mL 100 mg topical QWEEK 08/31/20 03/04/25 intramuscular oil bupropion HCl 150 mg 24 hr tablet, 150 mg PO QAM 11/11/22 03/04/25 extended release lorazepam 1 mg tablet 1 mg PO DAILY PRN 11/11/22 03/04/25 Previous Rx's ?Medication ?Instructions ?Recorded simethicone 125 mg chewable tablet 125 mg PO TID PRN abdominal 06/02/22 (Gas Relief (simethicone)) distention #90 tabs omeprazole 40 mg capsule,delayed 40 mg PO DAILY 3 months #90 caps 08/09/22 release omeprazole 20 mg tablet,delayed 20 mg PO DAILY 90 days #90 tabs 02/27/25 release ondansetron 4 mg disintegrating 4 mg PO Q8H PRN nausea and 02/27/25 tablet vomiting #10 tabs sucralfate 1 gram tablet 1 g PO Q6H 14 days #56 tabs 02/27/25 dicyclomine 20 mg tablet 20 mg PO TID abdominal cramping #7 02/28/25 tabs Allergies Allergy/AdvReac Type Severity Reaction Status Date / Time No Known Allergies Allergy Verified 03/11/25 08:05 Review of Systems Review of Systems: Yes all other systems are reviewed and are negative [facility] Past Medical History Attestation statement: The following information was validated with the patient. 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 Surgical History Hx of bilateral mastectomy Hx of wisdom tooth extraction Hx of tonsillectomy No pertinent past surgical history Family History Family History Father COPD (chronic obstructive pulmonary disease) Diabetes Mother Family history of thyroid problem Paternal Aunt Skin cancer Paternal Uncle Skin cancer Social History Social History Housing: House Alcohol intake: current Alcohol intake frequency: holidays/special occasions only Patient Tobacco Use Status: Never used Tobacco e-Cigarette/Vaping Use: Never Used Second Hand Smoke Exposure: Yes Substance Use Type: Marijuana Advance Directives: No Advance Directives Information Provided: No service: No Current occupational status: employed Current occupation: [employer] Cognitive needs: No Hearing needs: No Vision needs: No Physical Exam Exam: Exam: General: Appears in no acute distress, appears well nourished body habitus is obese, appears stated age. No septic or ill-appearing. Vitals reviewed normal, PMH/Social and Surgical hx reviewed including allergies and current medications. - reviewed for prior visits here Head: Normocephalic, no obvious trauma or skin lesions noted. Eyes: EOMI, no scleral icterus conjunctiva and sclera clear, no pallor ENMT: dry oral mucosa, Uvula is midline no trismus no tonsillar edema or erythema Neck: trachea midline, and no lymphadenopathy moving in all directions Cardiovascular: peripheral perfusion normal, Regular heart rate tachycardia at 01:05 on arrival but normal sinus rhythm now Respiratory: no respiratory distress lungs are clear to auscultation bilaterally no chest wall tenderness Abdomen: nondistended, nontender no scarring negative peritoneal signs no guarding or fluid rigidity no abdominal bruit Extremities: warm and moving without difficulty Psych: polite, cooperative, flat affect Neuro: Alert and oriented. Vital Signs: Vital Signs: Last Vital Signs Temp 98.2 F 02/27/25 11:35 Pulse 86 02/27/25 11:35 Resp 16 02/27/25 11:35 BP 128/87 02/27/25 11:35 Pulse Ox 99 02/27/25 11:35 O2 Del Method Room Air 02/27/25 11:35 BMI result Body Mass Index 30.5 Medications Administered Discontinued Medications Generic Name Dose Route Start Last Admin Trade Name Freq PRN Reason Stop Dose Admin Al Hydroxide/Mg Hydroxide 15 ml 02/27/25 09:14 02/27/25 09:36 Magnesium Hydrox/Alum Hydrox 30 Ml Oral.Susp PO 02/27/25 09:15 15 ml ONCE ONE Administration Sodium Chloride 1,000 mls @ 999 mls/hr 02/27/25 09:04 02/27/25 11:07 Ns IV 02/27/25 10:04 Infused .Q1H1M ONE Infusion Lidocaine HCl 10 ml 02/27/25 09:14 02/27/25 09:37 Lidocaine Hcl Viscous 2 % 15 Ml Solution MUCOUS MEM 02/27/25 09:15 10 ml ONCE ONE Administration Ondansetron HCl 4 mg 02/27/25 09:04 02/27/25 09:36 Ondansetron Hcl 4 Mg/2 Ml Vial IVPUSH 02/27/25 09:05 4 mg ONCE ONE Administration Medical Decision Making Medical Decision Making MDM Narrative: This patient with a complex history of GERD, depression, autism spectrum disorder, and anxiety presented with acute nausea, vomiting, and mild dehydration, as well as anorectal complaints. Clinical reasoning supported IV fluids for rehydration and antiemetic therapy (ondansetron) to control emesis, with mucosal protectants (sucralfate, lidocaine mouthwash) to address reflux and promote gastric healing. Dietary counseling was provided, including FODMAP information and accounting manager assistant controller referral, to help manage GERD and prevent future flares. Conservative management for external hemorrhoid and rectal fissure was chosen, emphasizing topical therapy, gentle hygiene, and avoidance of straining. Plans include close monitoring of hydration, GI follow-up, and further evaluation as needed to address ongoing symptoms and optimize long-term care. 34-year-old with chronic GERD and history of prior incomplete endoscopy, presenting with acute exacerbation of nausea/vomiting and mild dehydration. Problem #1: Acute nausea and vomiting Assessment: Recurrent emesis (~6/day) with diaphoresis and presyncope; no hematemesis; abdomen benign. Plan: Ondansetron IV in department; will arrange PO prescription to home pharmacy PRN. NPO except for medications while under observation. Lidocaine viscous mouthwash to coat gastric mucosa and reduce reflux-related discomfort. Sucralfate to be taken four times daily for 14 days to promote mucosal protection. Monitor frequency of emesis and tolerance of oral fluids; provide water trial before discharge. Chest X-ray and labs as above; further management contingent on results and clinical course. Problem #2: Gastroesophageal reflux disease (GERD) Assessment: Chronic GERD with current symptomatic flare; inconsistent PPI use due to insurance coverage. Plan: Plan to try omeprazole 20 mg daily for 90 days to facilitate insurance coverage. Dietary counseling: Reviewed trigger foods (fatty, oily, spicy, acidic, mint, chocolate, caffeine, alcohol); offered to provide FODMAP diet information and meal ideas. Patient expressed interest in accounting manager assistant controller referral for further dietary guidance. Maalox liquid discussed as an option for breakthrough heartburn. Lidocaine mouthwash and sucralfate as above for symptomatic relief/re-epithelialization. Follow with gastroenterology if recurrent or worsening symptoms. Problem #3: Hemorrhoids Assessment: On exam, patient has a nonthrombosed external hemorrhoid at the 6 o'clock position. History of intermittent bright-red dripping blood; no prior topical or surgical therapy. Plan: Continue conservative management: advise sitz baths, gentle hygiene, and avoidance of straining. Discussed topical options (witch torito, Preparation H) once acute GI symptoms controlled. Monitor for changes in bleeding or pain; follow up with GI as needed. Problem #4: Anal fissure Assessment: On exam, patient has a posterior midline rectal fissure less than 1 cm in length, not actively bleeding. Plan: Prescribe topical steroid for fissure. Advise use of Vaseline for comfort. Recommend GI follow-up for further evaluation and management. Problem #5: Mild dehydration Assessment: Limited oral intake and vomiting with lab evidence of hemoconcentration. Plan: IV crystalloid fluids administered. Monitor urine output and hydration status; reassess prior to discharge. No additional problems identified at this visit. Differential Diagnosis Differential Diagnoses: The differential diagnosis associated with the presentation includes see [facility] Admission/Observation Consideration of admission/observation: Escalation of care including admission/observation considered Lab Data [facility] Lab Attestation statement: I reviewed the patient's lab results. CBC notable for hemoconcentration consistent with mild dehydration. CMP and other abdominal labs otherwise within normal limits; no electrolyte, hepatic, or renal abnormalities. 02/27/25 08:33 02/27/25 08:33 Labs: Lab Results 02/27/25 Range/Units 08:33 WBC 7.3 (4.8-10.8) X10*3/uL RBC 5.58 H (4.20-5.50) X10*6/uL Hgb 16.2 H (12.0-16.0) g/dl Hct 47.8 H (37.0-47.0) % MCV 85.7 (80.0-98.0) fL MCH 29.0 (27.0-33.0) pg MCHC 33.9 (31.0-35.0) g/dl RDW 12.2 (11.0-16.0) % Plt Count 363 (160-400) X10*3/uL MPV 8.6 L (9.4-12.3) fL Immature Gran % (Auto) 0.5 H (0.0-0.4) % Neut % (Auto) 62.9 (45-73) % Lymph % (Auto) 23.1 (20-40) % Whitfield % (Auto) 11.9 H (2-11) % Eos % (Auto) 1.1 (0-4) % Baso % (Auto) 0.5 (0-2) % Lymph # (Auto) 1.7 (1.2-4.9) X10*3/uL Whitfield # (Auto) 0.9 (0.1-1.2) X10*3/uL Eos # (Auto) 0.1 (0.0-0.4) X10*3/uL Baso # (Auto) 0.0 (0.0-0.2) X10*3/uL Abs Immat Gran (auto) 0.04 H (0.00-0.03) X10*3/uL Absolute Neuts (auto) 4.6 (2.0-8.3) x10*3/uL Absolute Nucleated RBC 0.000 (0.0-0.012) X10*3/uL Nucleated RBC % (auto) 0.0 (0.0-0.2) /100WBC Sodium 140 (135-145) mmol/L Potassium 3.5 D (3.3-5.1) mmol/L Chloride 104 (96-108) mmol/L Carbon Dioxide 26 (22-29) mmol/L Anion Gap 14 (12-20) BUN 11 (9-16) mg/dL Creatinine 1.09 (0.5-1.4) mg/dL Estim Creat Clear Calc 72.6 Estimated GFR 58 Random Glucose 90 (60-115) mg/dL Calcium 9.6 (8.4-10.2) mg/dL Magnesium 2.0 (1.6-2.6) mg/dL Total Bilirubin 0.7 (0.0-1.0) mg/dL AST 25 (5-31) U/L ALT 15 (0-31) U/L Alkaline Phosphatase 91 (39-117) U/L Total Protein 7.5 (6.5-8.0) g/dL Albumin 4.7 (3.5-5.0) g/dL Lipase 30 (8-78) U/L Urine Color Yellow Urine Appearance Clear Urine pH 6.0 (5.0-9.0) Ur Specific Maynard 1.020 (1.005-1.025) Urine Protein Trace (Neg-Trace) mg/dL Urine Glucose (UA) Negative (Negative) mg/dL Urine Ketones 15 (Negative) mg/dL Urine Blood Trace H (Negative) Urine Nitrite Negative (Negative) Ur Leukocyte Esterase Large (3+) H (Negative) Urine RBC 3-5 H (0-2) /HPF Urine WBC >50 H (0-5) /HPF Ur Squamous Epith Cells 0-2 (0-2) /HPF Urine Bacteria None Seen (None Seen) Hyaline Casts 0-2 (0-2) /LPF Influenza Type A (PCR) NEGATIVE (Negative) Influenza Type B (PCR) NEGATIVE (Negative) RSV RNA Qual (PCR) NEGATIVE (Negative) SARS-CoV-2 RNA (RT-PCR) NEGATIVE (Negative) Independent Interpretation I performed an independent interpretation of an: EKG and Plain X-Ray Interpretation: EKG done to check QTc given medications: 405 ms, NSR 79 bpm- nondiagnostic, CXR clear Radiology Impression Discussion of test interpretation with radiology: I have reviewed the radiologist's reading. Tests considered The following testing was considered but not selected: would have considered CT abd/pelvis if it was tender and if labs were concerning Prescription Management I considered prescription management with: Other Chronic Conditions Patient?s care impacted by: Other Social Determinants Patient?s care significantly limited by Social Determinants of Health including: Problems related to primary support group and Other Social Determinant of Health Discharge Plan Discharge Clinical Impression: Chronic GERD, Gastroenteritis, Rectal fissure Patient Disposition: Home, Self-Care Instructions: Anal Fissure (ED), Gastroenteritis (DC), GERD (Gastroesophageal Reflux Disease) (DC) Additional Instructions: Discharge Summary - Catherine Patient Name: Catherine Date of Discharge: 2025-02-27 Discharging Clinician: Irene Harley PA-C Hospital Course: Catherine is a 28-year-old with a past medical history of gastroesophageal reflux disease (GERD), depression, autistic spectrum disorder, and anxiety who presented to the emergency department with acute nausea, vomiting (approximately 6 episodes per day), diaphoresis, presyncope, and mild dehydration. Physical examination revealed a soft, non-tender abdomen without rebound or guarding. The patient appeared uncomfortable and was observed shivering. Anorectal examination revealed a posterior midline rectal fissure measuring less than 1 cm in length, not actively bleeding, and a nonthrombosed external hemorrhoid at the 6 o'clock position. Laboratory evaluation demonstrated hemoconcentration consistent with mild dehydration; complete metabolic panel was otherwise within normal limits with no electrolyte, hepatic, or renal abnormalities. Chest X-ray was obtained to evaluate for possible aspiration. EKG was reassuring and Chest XRAY showed no signs of aspiration pneumonia. The patient was managed with intravenous crystalloid fluids for rehydration and close monitoring of hydration status and urine output. For nausea and vomiting, she received ondansetron intravenously with good effect. For GERD symptom management and mucosal protection, sucralfate (four times daily for 14 days) and lidocaine viscous mouthwash were initiated. Conservative management for the anal fissure included counseling on sitz baths, gentle hygiene, and avoidance of straining. A topical steroid was prescribed for the fissure, along with petrolatum (Vaseline) for comfort. For the external hemorrhoid, conservative measures were recommended, including sitz baths, gentle hygiene, and avoidance of straining. The patient received extensive dietary counseling for GERD, including avoidance of trigger foods (fatty, oily, spicy, acidic foods, mint, chocolate, caffeine, and alcohol), as well as recommendations to avoid eating within 3 hours of bedtime and to elevate the head of the bed. FODMAP diet information was provided, and the patient expressed interest in accounting manager assistant controller referral for further dietary guidance. The patient tolerated oral fluids prior to discharge and demonstrated clinical improvement in nausea and hydration status. Discharge Diagnoses: 1. Acute nausea and vomiting with mild dehydration 2. Gastroesophageal reflux disease (GERD), acute exacerbation 3. Anal fissure, posterior midline, less than 1 cm 4. External hemorrhoid, nonthrombosed Discharge Medications: 1. Omeprazole 20 mg orally once daily for 90 days for GERD management 2. Ondansetron (prescription sent to home pharmacy) as needed for nausea 3. Sucralfate 1 gram orally four times daily for 14 days for mucosal protection 4. Petrolatum (Vaseline) for comfort with anal fissure, apply as needed, over the counter 5. Maalox liquid OTC (over the counter) as needed for breakthrough heartburn 6. Continue home medications for depression and anxiety as previously prescribed Discharge Instructions: For GERD: - Take omeprazole 20 mg daily as prescribed, preferably 30 minutes before breakfast - Avoid trigger foods: fatty, oily, spicy, acidic foods (citrus, tomato), mint, chocolate, caffeine, and alcohol - Avoid eating within 3 hours of bedtime - Elevate the head of the bed 6-8 inches or use a wedge pillow - Keep meal sizes small; consider 4-5 small meals instead of 3 large meals - Avoid lying down immediately after eating - Use Maalox liquid for breakthrough heartburn symptoms For Nausea/Vomiting: - Take ondansetron as needed for nausea - Maintain adequate hydration; drink water and clear fluids throughout the day - If vomiting recurs or worsens, return to the emergency department For Anal Fissure: - Perform sitz baths 2-3 times daily for 10-15 minutes, especially after bowel movements - Apply topical vaseline ointment as directed, follow up with general surgery for definitive management - Apply petrolatum (Vaseline) for comfort - Practice gentle hygiene; avoid harsh wiping - Increase fiber intake (psyllium or dietary fiber) and fluid intake to prevent constipation and straining - Avoid prolonged sitting on the toilet For External Hemorrhoid: - Continue sitz baths as above - Practice gentle hygiene and avoid straining during bowel movements - Consider assa-ujn-fabtbys witch torito or Preparation H if symptoms worsen - Monitor for increased bleeding or pain Follow-Up: 1. Gastroenterology: Schedule follow-up within 2-4 weeks for ongoing management of GERD and evaluation of anal fissure and hemorrhoid. If symptoms do not improve with conservative management, further evaluation and treatment options will be discussed 2. Police Magistrate referral: Contact your PCP for accounting manager assistant controller consultation for FODMAP diet guidance and meal planning for GERD management, i have given you some information about this as handout. 3. Primary care: Follow up within 1-2 weeks for overall care coordination Return Precautions: Return to the emergency department or seek immediate medical attention if you experience: - Severe or worsening abdominal pain - Persistent vomiting with inability to keep down fluids - Signs of severe dehydration (decreased urination, dizziness, confusion) - Hematemesis (vomiting blood) or coffee-ground emesis - Severe rectal bleeding or pain - Fever greater than 100.4?F (38?C) - Worsening symptoms despite medication compliance Additional Notes: Social history is notable for marijuana use (last use late last night). Patient denies alcohol use. Patient counseled that marijuana use may contribute to nausea and vomiting symptoms and should be discussed with primary care provider. Patient verbalized understanding of discharge instructions, medications, and follow-up plan. All questions were answered. Patient was discharged in stable condition. Prescriptions: New sucralfate 1 gram tablet 1 g PO Q6H 14 Days Qty: 56 0RF omeprazole 20 mg tablet,delayed release (DR/EC) 20 mg PO DAILY 90 Days Qty: 90 0RF ondansetron 4 mg tablet,disintegrating 4 mg PO Q8H PRN (Reason: nausea and vomiting) Qty: 10 0RF No Action omeprazole 40 mg capsule,delayed release(DR/EC) 40 mg PO DAILY 90 Days Qty: 90 1RF Rx Instructions: pt is taking citalopram in the pn and takes ppi in the am to avoid interaction dicyclomine 20 mg tablet 20 mg PO TID Qty: 7 0RF citalopram 40 mg tablet 40 mg PO DAILY testosterone cypionate 200 mg/mL oil 100 mg topical QWEEK alcohol swabs Pads, Medicated 0 pad topical DIRECTED bupropion HCl 150 mg tablet extended release 24 hr 150 mg PO QAM lorazepam 1 mg tablet 1 mg PO DAILY PRN simethicone [Gas Relief (simethicone)] 125 mg tablet,chewable 125 mg PO TID PRN (Reason: abdominal distention) Qty: 90 2RF Referrals: [facility] Gastroenterology Services [Provider Group, Gastroenterology] Clinical Impression: Chronic GERD [facility] General Surgeons [Provider Group, General Surgery] Clinical Impression: Rectal fissure Stand Alone Forms: Work/School Release Interventions: ED Discharge Assessment Last Done: 02/27/25 11:35 Discharge Date/Time: 02/27/25 11:36 Print Language: Yi
--- NOTE | 2025-02-27 09:04 | ECG_ITS ---
Test Reason : CHECK QTC Blood Pressure : */* mmHG Vent. Rate : 79 BPM Atrial Rate : 79 BPM P-R Int : 162 ms QRS Dur : 96 ms QT Int : 354 ms P-R-T Axes : 68 52 23 degrees QTcB Int : 405 ms Normal sinus rhythm Normal ECG No previous ECGs available Referred By: Irene Harley Electronically Signed By: Sam Wood
[2025-02-27 09:26] LABS: Resp Syncy Virus RNA Qual PCR NEGATIVE (Negative); SARS COV2 PCR INHOUSE NEGATIVE (Negative)
[2025-02-27] MEDS: Magnesium Hydrox/Alum Hydrox 30 ML ORAL.SUSP 15 ML PO (09:36)
[2025-02-27 09:37] LABS: Alanine Aminotransferase 15 U/L (0-31); Albumin Level 4.7 g/dL (3.5-5.0); Alkaline Phosphatase 91 U/L (39-117); Anion Gap 14 (12-20); Aspartate Amino Transferase 25 U/L (5-31); Blood Urea Nitrogen 11 mg/dL (9-16); Calcium 9.6 mg/dL (8.4-10.2); Carbon Dioxide 26 mmol/L (22-29); Chloride 104 mmol/L (96-108); Creatinine Clr Calc Pharmacy 72.6; Estimated Glomerular Filt Rate 58; Lipase 30 U/L (8-78); Magnesium 2.0 mg/dL (1.6-2.6); Potassium 3.5 mmol/L (3.3-5.1); Sodium 140 mmol/L (135-145); Total Protein 7.5 g/dL (6.5-8.0)
[2025-02-27] MEDS: Lidocaine HCl Viscous 2 % 15 ML SOLUTION 10 ML MUCOUS MEM (09:37)
[2025-02-27 11:33] VITALS: BP 128/87; PULSE 86; RESP 16; TEMP 36.8; O2SAT 99
[2025-02-27 11:35] VITALS: BP 128/87; PULSE 86; RESP 16; TEMP 36.8; O2SAT 99
== END 2025-02-27 11:36 | disposition home or self-care (01) ==
PROVIDERS: Emergency Provider Emergency Medicine Emergency Medical Services; PCP Nurse Practitioner Family
DX: K21.9 Gastro-esophageal reflux disease without esophagitis (principal); K52.9 Noninfective gastroenteritis and colitis, unspecified; K60.2 Anal fissure, unspecified; R11.2 Nausea with vomiting, unspecified; Z03.818 Encounter for observation for suspected exposure to other biological agents ruled out; F64.0 Transsexualism; F84.5 Asperger's syndrome; E78.5 Hyperlipidemia, unspecified; Z79.899 Other long term (current) drug therapy
CPT/HCPCS: 71045; 80053; 81001; 83690; 83735; 85025; 87086; 87637; 93005; 96361; 96374; 99284; J2405

== ENCOUNTER → 2025-02-27 09:04 | Outpatient (BNV) | payer OTHER, SELFPAY | PROVIDERS: Emergency Provider Emergency Medicine Emergency Medical Services; PCP Nurse Practitioner Family; Visit Provider Internal Medicine Cardiovascular Disease | DX: Z13.6 Encounter for screening for cardiovascular disorders (principal) | CPT/HCPCS: 93010 ==

== ENCOUNTER → 2025-02-27 10:31 | Outpatient (BNV) | payer OTHER, SELFPAY | PROVIDERS: Emergency Provider Emergency Medicine Emergency Medical Services; PCP Nurse Practitioner Family; Visit Provider Radiology Diagnostic Radiology | DX: Z03.89 Encounter for observation for other suspected diseases and conditions ruled out (principal) | CPT/HCPCS: 71045 ==

== ENCOUNTER 2025-02-28 05:19 | Emergency (ER) | payer OTHER, SELFPAY ==
[2025-02-28 05:21] VITALS: BP 105/58; PULSE 90; RESP 20; TEMP 36.2; O2SAT 98; BMI 30.6
--- OUTSIDE RECORDS SUMMARY | 2025-02-28 05:36 | XMS_ITS | Encounter Summary ---
Author Organization [facility] Address [address] [place] [phone] Phone Care Team Providers Care Double Bass Player Name Role Phone Alexa Tillman TEACHER ASSISTANT Primary Care Provider Pcp, Unknown Primary Care Provider Keyur Shahid TEACHER ASSISTANT Primary Care Provider [phone] Encounter Details Date Type Department Care Team (Late st Contact Info) Description 07/20/2022 Procedure Pass [facility] Endoscopy Admitting Dept Virtual Department [address] [place] [address] Social History Tobacco Use Types Packs/Day Years Used Date Smoking Tobacco: Never Smokeless Tobacco: Never Alcohol Use Standard Drinks/Week Comments Yes 0 (1 standard drink = 0.6 oz pur e alcohol) occasional beer Education Answer Date Recorded Are you interested in more education? Not on zi e 07/09/2022 Are you concerned about learning? Not on file 07/09/2022 No 07/09/2022 No 07/09/2022 Comments No Sex and Gender Information Value Date Recorded Sex Assigned at Female 12/31/2021 10:57 AM EDT Legal Sex Unknown 12/30/2021 11:55 AM EDT Gender Identity Male 12/31/2021 10:57 AM EDT Sexual Orientation Straight 12/31/2021 10 :57 AM EDT documented as of this encounter Plan of Treatment Not on file documented as of this encounter Visit Diagnoses Not on filedocumented in this encounter Care Teams Double Bass Player Relationship Specialty Start Date End Date Alexa Tillman NP PCP - General Family Medicine 12/31/21 11/28/23 Pcp, Unknown PCP - General 11/29/23 04/15/24 Keyur Gonzalez NP [address] [place] [address] PCP - General Nurse Practitioner 04/16/24 documented as of this encounter Additional Source Comments The information contained in this document represents components of the legal health record. It is not the complete legal health record.[facility]
--- OUTSIDE RECORDS SUMMARY | 2025-02-28 05:36 | XMS_ITS | Encounter Summary ---
Author Organization [facility] Address [address] [place] [address] Phone Care Team Providers Care Plc Engineer Name Role Phone Karen Albarran MD Primary Care Provider Unava ilable Encounter Details Date Type Department Care Team (Late st Contact Info) Description 12/01/2011 Documentation EM Family Medicine [address] [place], [place] [phone] Family Medicine, Physician [address] [place] [address] Social History Tobacco Use Types Packs/Day Years [...] on filedocumented in this encounter Care Teams Plc Engineer Relationship Specialty Start Date End Date Karen Albarran MD PCP - General 10/21/16 documented as of this encounter
--- OUTSIDE RECORDS SUMMARY | 2025-02-28 05:36 | XMS_ITS | Clinical Summary ---
Author Organization [facility] Address [address] [place] [address] [address] [place] [address] Phone Care Team Providers Care Diving Supervisor Name Role Phone Keyur Gonzalez TELECOM ASSISTANT Primary Care Provider +1- [phone] Allergies No known active allergies Medications omeprazole (PRILOSEC) 40 MG capsule Take 40 mg by mouth daily. Active citalopram (CELEXA) 40 MG tablet Take 40 mg by mouth daily. Active LORazepam (ATIVAN) 1 MG tablet Take 1 mg by mouth every 6 (six) hours as needed for anxiety. Active testosterone cypionate (DEPO-TESTOTERON E) 200 mg/mL injection Inject into the muscle every 7 days. Every week, once a week Active buPROPion (WELLBUTRIN XL) 150 MG ER 24 hr tablet Take 1 tablet by mouth every morning. 01/03/2024 Active BD LUER-MIGUELANGEL SYRINGE 1 mL Syrg as directed. 10/20/2023 Active Active Problems Problem Noted Date Diagnosed Date Cannabis dependence 01/30/2024 Gastroesophageal reflux disease with esophagitis 01/30/2024 Pervasive developmental disorder 01/30/2024 Recurrent major depressive episodes 01/30/2024 Generalized anxiety disorder 01/04/2010 Encounters Date Type Department Care Team Description 01/15/2025 Telephone [facility] [address] [facility], 3[address] Floor, [address] [place] [address] Gonzalo Sutherland MD from Last 3 Months Social History Tobacco Use Types Packs/Day Years Used Date Smoking Tobacco: Never Smokeless Tobacco: Never Tobacco Cessation:Counseling Given: Not Answered Alcohol Use Standard Drinks/Week Comments Yes 0 (1 standard drink = 0.6 oz pur e alcohol) occasional beer Education Answer Date Recorded Are you interested in more education? Not on zi e 07/09/2022 Are you concerned about learning? Not on file 07/09/2022 No 07/09/2022 No 07/09/2022 Digital Access Answer Date Recorded No 08/09/2022 No 08/09/2022 Reliable internet access at home? Not on file 08/09/2022 Device with a working camera? Not on file Intimate Partner Violence Answer Date R ecorded Are you denied basic needs s uch as food, clothing, or medical care? No 07/17/2024 In the past 12 months have y ou been in a relationship with a person who hurts, threatens, or tries to control you? No 07/17/2024 Are you denied basic needs s uch as food, clothing, or medical care? No 07/17/2024 In the past 12 months have y ou been in a relationship with a person who hurts, threatens, or tries to control you? No 07/17/2024 Comments No Sex and Gender Information Value Date Recorded Sex Assigned at Female 12/31/2021 10:57 AM EDT Legal Sex Unknown 12/30/2021 11:55 AM EDT Gender Identity Male 12/31/2021 10:57 AM EDT Sexual Orientation Straight 12/31/2021 10 :57 AM EDT Last Filed Vital Signs Vital Sign Reading Time Taken Comments Blood Pressure 124/75 09/23/2024 2:22 PM EDT Pulse 71 09/23/2024 2:22 PM EDT Temperature 36.2 C (97.2 F) 01/31/2024 11:50 AM EST Respiratory Rate 13 01/31/2024 12:00 PM EST Oxygen Saturation 97% 09/23/2024 2:22 PM EDT Inhaled Oxygen Concentration - - Weight 80.3 kg (177 lb) 10/17/2024 6:26 PM EDT Height 160 cm (5' 3 ) 10/17/2024 6:26 PM EDT Body Mass Index 31.35 10/17/2024 6:26 PM EDT Plan of Treatment Health Maintenance Due Date Last Done Comments DEPRESSION SCREENING 2003 HEPATITIS C SCREENING 06/17/2009 HIV ONE-TIME SCREENING (18-65 YEARS) 06/17/2009 Adult Td,Tdap Booster 10/11/2022 10/11/2012, 010 INFLUENZA VACCINE (#1) 2024 7, 12/25/2015, 02/06/2015, Additional history exists COVID-19 VACCINE (2024- season) 2024 COLOGUARD 02/05/2025 FIT TEST 02/05/2025 01/22/2022 FOBT 02/05/2025 SIGMOIDOSCOPY 02/05/2025 VIRTUAL COLONOSCOPY 02/05/2025 COLONOSCOPY 01/30/2034 01/31/2024 COLORECTAL CANCER SCREENING 01/30/2034 SMOKING STATUS SCREENING (Once After 26 Yrs) Completed 07/15/2024 HEPATITIS A VACCINES Aged Out No long er eligible based on patient's age to complete this topic HIB VACCINES Aged Out No longer eligi ble based on patient's age to complete this topic MENINGOCOCCAL VACCINES (ACWY) Aged Out No longer eligible based on patient's age to complete this topic MENINGOCOCCAL VACCINES (B) Aged Out N o longer eligible based on patient's age to complete this topic PNEUMOCOCCAL VACCINES (0-49 years) Aged Out No longer eligible based on patient's age to complete this topic Medical Devices Not on file Procedures Procedure Name Priority Date/Time Associated Diagnosis Comments ENDOSCOPY, COLON 01/31/2024 11:1 4 AM EST HC BLOOD OCCULT FECAL HGB DETER IA QUAL FECES 1-3 Routine 01/22/2022 9:00 AM EST Rectal bleeding Rectal pain from Last 3 Months or Most Recently Relevant to Health Maintenance Results * ENDOSCOPY, COLON (01/31/2024 11:14 AM EST) Narrative Transcriptions Linda Hill MD - 01/31/2024 11:14 AM EST [facility] Patient Name: Catherine Jones Attending MD:: LINDA HILL MD, Procedure Date: 01/31/2024 11:14AM Date of : 1990 Age: 33 Admit Type: Outpatient Gender: Unknown Room: [place] [address] Referring MD: Unknown Unknown Exam Type: Colonoscopy Indications: This is the patient's first colonoscopy, Rectal bleeding Medications: Monitored Anesthesia Care Procedure: Informed consent was obtained from the patientafter discussion of the indications, limitations, alternatives, benefits, and risks of the procedure. Risks specifically discussed include but are not limited to medication reactions, missed lesions, bleeding, perforation, or the need for emergent surgery. Throughout the procedure, the patient's blood pressure, pulse, end-tidal CO2, and oxygensaturations were monitored continuously. The Colonoscope was introduced through the anus and advanced to the cecum, identified by theappendiceal orifice, ileocecal valve and palpation. The colonoscopy was technically difficult and complexdue to the patient's respiratory instability. Thepatient tolerated the procedure poorly due to the patient's inability to tolerate conscioussedation/laryngospasm. Complications: Laryngospasm Findings: Hemorrhoids were found on perianal exam. Retroflexion in the right colon was performed. Non-bleeding internal hemorrhoids were found during retroflexion. The hemorrhoids were large and GradeII (internal hemorrhoids that prolapse but reduce spontaneously). The exam was otherwise without abnormality ondirect and retroflexion views. The colon (entire examined portion) was mildly redundant. Impression: - Hemorrhoids found on perianal exam. - Non-bleeding internal hemorrhoids. - The examination was otherwise normal on directand retroflexion views. - Redundant colon. - No specimens collected. Recommendation: - Use fiber, for example Citrucel, Fibercon, Konsylor Metamucil. - Any future endoscopic evaluations require general anesthesia/endotracheal intubation. - Repeat colonoscopy in 10 years for screening purposes. LINDA HILL MD 01/31/2024 11:42:13 AM This report has been signed electronically. Number of Addenda: 0 Note Initiated On: 01/31/2024 11:14 AM Procedure Code(s): --- Professional --- 88973, Colonoscopy, flexible; diagnostic, including collection of specimen(s) by brushing or washing, when performed (separateprocedure) --- Technical --- 27937, Colonoscopy, flexible; diagnostic, including collection of specimen(s) by brushing or washing, when performed (separateprocedure) Diagnosis Code(s): --- Professional --- K64.1, Second degree hemorrhoids K62.5, Hemorrhage of anus and rectum Q43.8, Other specified congenital malformations of intestine --- Technical --- K64.1, Second degree hemorrhoids K62.5, Hemorrhage of anus and rectum Q43.8, Other specified congenital malformations of intestine CPT copyright 2021 [employer]. All rights reserved. The codes documented in this report are preliminary and upon power driven brush maker reviewmay be revised to meet current compliance requirements. Procedure Date: 01/31/2024 11:14:[address] [place] [address] us Unknown Unknown MD GI PROCEDURE ORDERABLES Final Result * Fecal immunochemical test x1 (FIT) (01/22/2022 9:00 AM EST) Immuno Fecal Occult Negative Negative [facility] Stool (Stool) 01/22/2022 9:0 0 AM EST 01/24/2022 11:14 AM EST us Zoya Dean NP LAB BODY FLUIDS AND STOOL ORDERABLES Final Result [address] [address] from Last 3 Months or Most Recently Relevant to Health Maintenance Insurance [facility]IC[facility]AC[facility] [place] [id number] MEDICARE PART [facility] ONE CARE MEDICARE REPLACEMENT MEDICARE PART A & B [facility] ONE CARE MEDICARE REPLACEMENT MEDICARE PART A & B [facility] ONE CARE MEDICARE REPLACEMENT MEDICARE PART A & B [facility] CARE MEDICARE REPLACEMENT MEDICARE PART A & B [facility] ONE CARE MEDICARE REPLACEMENT Care Teams Diving Supervisor Relationship Specialty Start Date End Date Keyur Gonzalez NP [address] [place] [address] PCP - General Nurse Practitioner 04/16/24 Additional Source Comments The information contained in this document represents components of the legal health record. It is not the complete legal health record.[facility]
--- OUTSIDE RECORDS SUMMARY | 2025-02-28 05:36 | XMS_ITS | Encounter Summary ---
Author Organization [facility] Address [address] [place] [address] Phone Care Team Providers Care Drop Tester Name Role Phone Pcp, Unknown Primary Care Provider Keyur Shahid REIMBURSEMENT COUNSELOR Primary Care Provider +1- [phone] Encounter Details Date Type Department Care Team (Late st Contact Info) Description 11/29/2023 Procedure Pass [facility], Ct Scan - [address] [address] Social History Tobacco Use Types Packs/Day Years [...] with a working camera? Not on file Comments No Sex and Gender Information Value [...] on filedocumented in this encounter Care Teams Drop Tester Relationship Specialty Start Date End Date Pcp, Unknown PCP - General 11/29/23 04/15/24 Keyur Gonzalez NP [address] [place] [address] PCP - General Nurse Practitioner 04/16/24 documented as of this encounter Additional Source Comments The information contained in this document represents components of the legal health record. It is not the complete legal health record.[facility]
--- OUTSIDE RECORDS SUMMARY | 2025-02-28 05:36 | XMS_ITS | Encounter Summary ---
Author Organization [facility] Address [address] [place] [address] Phone Care Team Providers Care Director Of Development And Marketing Name Role Phone Karen Albarran MD Primary Care Provider Unava ilable Encounter Details Date Type Department Care Team (Late st Contact Info) Description 01/11/2012 Documentation EM Family Medicine [address] [place], [place] [phone] Family Medicine, Physician [address] [place] [address] Social History Tobacco Use Types Packs/Day Years [...] filedocumented in this encounter Care Teams Director Of Development And Marketing Relationship Specialty Start Date End Date Karen Albarran MD PCP - General 10/21/16 documented as of this encounter
--- OUTSIDE RECORDS SUMMARY | 2025-02-28 05:36 | XMS_ITS | Encounter Summary ---
Author Organization [facility] Address [address] [place] [address] Phone Care Team Providers Care Shop Steward Name Role Phone Karen Albarran MD Primary Care Provider Unava ilable Encounter Details Date Type Department Care Team (Late st Contact Info) Description 11/26/2009 Documentation [facility] [address] [place], [place] [phone] Family Medicine, Physician [address] [place] [address] Social History Tobacco Use Types Packs/Day Years [...] on filedocumented in this encounter Care Teams Shop Steward Relationship Specialty Start Date End Date Karen Albarran MD PCP - General 10/21/16 documented as of this encounter
--- OUTSIDE RECORDS SUMMARY | 2025-02-28 05:36 | XMS_ITS | Encounter Summary ---
Author Organization [facility] Address [address] [place] [address] Phone Care Team Providers Care Manager Visual Name Role Phone Karen Albarran MD Primary Care Provider Unava ilable Encounter Details Date Type Department Care Team (Late st Contact Info) Description 12/01/2011 Documentation EM Family Medicine [address] [place], [place] [phone] Family Medicine, Physician [address] [place] [address] Social History Tobacco Use Types Packs/Day Years [...] on filedocumented in this encounter Care Teams Manager Visual Relationship Specialty Start Date End Date Karen Albarran MD PCP - General 10/21/16 documented as of this encounter
--- OUTSIDE RECORDS SUMMARY | 2025-02-28 05:36 | XMS_ITS | Encounter Summary ---
Author Organization [facility] Address [address] [place] [address] Phone Care Team Providers Care Hospital Social Worker Name Role Phone Karen Albarran MD Primary Care Provider Unava ilable Encounter Details Date Type Department Care Team (Late st Contact Info) Description 10/27/2016 Conversion Encounter [facility] - [address] [address] Social History Tobacco Use Types Packs/Day Years [...] on filedocumented in this encounter Care Teams Hospital Social Worker Relationship Specialty Start Date End Date Karen Albarran MD PCP - General 10/21/16 documented as of this encounter
--- OUTSIDE RECORDS SUMMARY | 2025-02-28 05:36 | XMS_ITS | Encounter Summary ---
Author Organization [facility] Address [address] [place] [address] Phone Care Team Providers Care Manager Php Name Role Phone Karen Albarran MD Primary Care Provider Unava ilable Encounter Details Date Type Department Care Team (Late st Contact Info) Description 09/30/2011 Documentation EM Family Medicine [address] [place], [place] [phone] Family Medicine, Physician [address] [place] [address] Social History Tobacco Use Types Packs/Day Years [...] filedocumented in this encounter Care Teams Manager Php Relationship Specialty Start Date End Date Karen Albarran MD PCP - General 10/21/16 documented as of this encounter
--- OUTSIDE RECORDS SUMMARY | 2025-02-28 05:36 | XMS_ITS | Encounter Summary ---
Author Organization [facility] Address [address] [place] [address] Phone Care Team Providers Care Packing Machine Pilot Can Router Name Role Phone Keyur Gonzalez DIRECTOR OF REGULATORY AFFAIRS Primary Care Provider +1- [phone] Encounter Details Date Type Department Care Team (Late st Contact Info) Description 05/29/2024 Procedure Pass [facility], [address] [address] Social History Tobacco Use Types Packs/Day Years [...] as food, clothing, or medical care? No 01/31/2024 In the past 12 months have y ou been in a relationship with a person who hurts, threatens, or tries to control you? No 01/31/2024 Are you denied basic needs s uch as food, clothing, or medical care? No 01/31/2024 In the past 12 months have y ou been in a relationship with a person who hurts, threatens, or tries to control you? No 01/31/2024 Comments No Sex and Gender Information Value [...] on filedocumented in this encounter Care Teams Packing Machine Pilot Can Router Relationship Specialty Start Date End Date Keyur Gonzalez NP [address] [place] [address] PCP - General Nurse Practitioner 04/16/24 documented as of this encounter Additional Source Comments The information contained in this document represents components of the legal health record. It is not the complete legal health record.[facility]
--- OUTSIDE RECORDS SUMMARY | 2025-02-28 05:36 | XMS_ITS | Encounter Summary ---
Author Organization [facility] Address [address] [place] [address] Phone Care Team Providers Care Engineering Model Maker Name Role Phone Lisa Keyur Lemus ASH COLLECTOR Primary Care Provider +1- [phone] Encounter Details Date Type Department Care Team (Late st Contact Info) Description 07/17/2024 Procedure Pass [facility], Ct Scan - [address] [address] Social History Tobacco Use Types Packs/Day Years [...] on filedocumented in this encounter Care Teams Engineering Model Maker Relationship Specialty Start Date End Date Keyur Gonzalez NP [address] [place] [address] PCP - General Nurse Practitioner 04/16/24 documented as of this encounter Additional Source Comments The information contained in this document represents components of the legal health record. It is not the complete legal health record.[facility]
--- OUTSIDE RECORDS SUMMARY | 2025-02-28 05:36 | XMS_ITS | Clinical Summary ---
Author Organization [facility] Address [address] [place] [address] Phone Care Team Providers Care Audiovisual Technician Name Role Phone Karen Albarran MD Primary [...] age to complete this topic Care Teams Audiovisual Technician Relationship Specialty Start Date End Date Karen Albarran MD PCP - General 10/21/16
--- OUTSIDE RECORDS SUMMARY | 2025-02-28 05:36 | XMS_ITS | Encounter Summary ---
Author Organization [facility] Address [address] [place] [address] Phone Care Team Providers Care Fortune Teller Name Role Phone Karen Albarran MD Primary Care Provider Unava ilable Encounter Details Date Type Department Care Team (Late st Contact Info) Description 02/01/2011 Documentation [facility] [address] [place], [place] [phone] Family Medicine, Physician [address] [place] [address] Social History Tobacco Use Types Packs/Day Years [...] on filedocumented in this encounter Care Teams Fortune Teller Relationship Specialty Start Date End Date Karen Albarran MD PCP - General 10/21/16 documented as of this encounter
--- OUTSIDE RECORDS SUMMARY | 2025-02-28 05:36 | XMS_ITS | Encounter Summary ---
Author Organization [facility] Address [address] [place] [address] Phone Care Team Providers Care Research Development Director Name Role Phone Karen Albarran MD Primary Care Provider Unava ilable Encounter Details Date Type Department Care Team (Late st Contact Info) Description 11/04/2010 Documentation [facility] [address] [place], [place] [phone] Family Medicine, Physician [address] [place] [address] Social History Tobacco Use Types Packs/Day Years [...] on filedocumented in this encounter Care Teams Research Development Director Relationship Specialty Start Date End Date Karen Albarran MD PCP - General 10/21/16 documented as of this encounter
--- OUTSIDE RECORDS SUMMARY | 2025-02-28 05:36 | XMS_ITS | Encounter Summary ---
Author Organization [facility] Address [address] [place] [address] Phone Care Team Providers Care Community Outreach Coordinator Name Role Phone Pcp, Unknown Primary Care Provider Keyur Shahid BALLROOM DANCER Primary Care Provider +1- [phone] Encounter Details Date Type Department Care Team ([facility] st Contact Info) Description 01/31/2024 Procedure Pass [facility] Endoscopy Admitting Dept Virtual Department [address] [place] [address] Social History Tobacco Use Types Packs/Day Years [...] on filedocumented in this encounter Care Teams Community Outreach Coordinator Relationship Specialty Start Date End Date Pcp, Unknown PCP - General 11/29/23 04/15/24 Keyur Gonzalez NP [address] [place] [address] PCP - General Nurse Practitioner 04/16/24 documented as of this encounter Additional Source Comments The information contained in this document represents components of the legal health record. It is not the complete legal health record.[facility]
--- OUTSIDE RECORDS SUMMARY | 2025-02-28 05:36 | XMS_ITS | Encounter Summary ---
Author Organization [facility] Address [address] [place] [address] Phone Care Team Providers Care Dividend Clerk Name Role Phone Keyur Gonzalez GEOGRAPHIC INFORMATION SCIENTIST Primary Care Provider +1- [phone] Encounter Details Date Type Department Care Team (Late st Contact Info) Description 07/17/2024 Procedure Pass [facility] [address] [place] [address] Social History Tobacco Use Types Packs/Day Years [...] on filedocumented in this encounter Care Teams Dividend Clerk Relationship Specialty Start Date End Date Keyur Gonzalez NP [address] [place] [address] PCP - General Nurse Practitioner 04/16/24 documented as of this encounter Additional Source Comments The information contained in this document represents components of the legal health record. It is not the complete legal health record.[facility]
--- NOTE | 2025-02-28 07:08 | ED_ITS ---
HPI - General Adult General Chief complaint: Nausea/Vomiting/Diarrhea Stated complaint: Stomach Pain Not Feeling Well Time Seen by Provider: 02/28/25 07:03 Source: patient Mode of arrival: ambulatory Limitations: no limitations History of Present Illness ED Provider: Alysia Baires PA-C HPI narrative: Patient is a 34 year old assigned female at , now male, with a history of GERD, anxiety, depression, and migraines presenting to the emergency department today after an episode of an esophageal spasm. Patient states that he was seen here yesterday for a similar episode and picked up his prescriptions but has not taken them. Patient states that when his GERD flares he breaks out into a sweat, feels generally unwell, and his intestines feels as though they are cramping. Patient states that he feels as though his episode this morning has gotten better but has not completely resolved. Patient states that he does have a GI specialist and has had an endoscopy before but the scope was complicated by coding during the procedure. Patient denies any other complaints at this time. Related Data Home Medications ?Medication ?Instructions ?Recorded ?Confirmed alcohol swabs 0 pad topical DIRECTED 04/24/24 citalopram 40 mg tablet 40 mg PO DAILY 08/31/2004/13 testosterone cypionate 200 mg/mL 100 mg topical QWEEK 08/31/20 04/24/24 intramuscular oil bupropion HCl 150 mg 24 hr tablet, 150 mg PO QAM 11/1104/24/24 extended release lorazepam 1 mg tablet 1 mg PO DAILY PRN 11/11/22 0 04/24/24 Previous Rx's ?Medication ?Instructions ?Recorded simethicone 125 mg chewable tablet 125 mg PO TID PRN a bdominal 06/02/22 (Gas Relief (simethicone)) distention #90 tabs omeprazole 40 mg capsule,delayed 40 mg PO DAILY 3 joanne hs #90 caps 08/09/22 release omeprazole 20 mg tablet,delayed 20 mg PO DAILY 90 days #90 tabs 02/27/25 release ondansetron 4 mg disintegrating 4 mg PO Q8H PRN nausea and 02/27/25 tablet vomiting #10 tabs sucralfate 1 gram tablet 1 g PO Q6H 14 days #56 tabs 02/27/25 dicyclomine 20 mg tablet 20 mg PO TID abdominal cramp ing #7 02/28/25 tabs Allergies Allergy/AdvReac Type Severity Reaction Status Date / Time No Known Allergies Allergy Verified 02/28/25 05:24 Review of Systems Constitutional: Constitutional: Reports as per HPI Eyes: Eyes: Reports as per HPI ENT: Reports as per HPI Cardiovascular: Cardiovascular: Reports as per HPI Respiratory: Respiratory: Reports as per HPI Gastrointestinal: Gastrointestinal: Reports as per HPI Genitourinary: Genitourinary: Reports as per HPI Musculoskeletal: Musculoskeletal: Reports as per HPI Integumentary/Breasts: Skin/Breast: Reports as per HPI Neurologic: Reports as per HPI Psychiatric: Psychiatric: Reports as per HPI Endocrine: Endocrine: Reports as per HPI Hematologic/Lymphatic: Hematologic/Lymphatic: Reports as per HPI Allergic/Immunologic: Allergic/Immunologic: Reports as per HPI [facility] Past Medical History Attestation statement: The following information was validated with the patient. Source: old records reviewed and nursing notes reviewed Medical History GERD (gastroesophageal reflux disease) Depression Asperger syndrome Anxiety 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 Surgical History Hx of wisdom tooth extraction Hx of tonsillectomy No pertinent past surgical history Family History Family History Father COPD (chronic obstructive pulmonary disease) Diabetes Mother Family history of thyroid problem Paternal Aunt Skin cancer Paternal Uncle Skin cancer Social History Social History Housing: House Alcohol intake: current Alcohol intake frequency: holidays/special occasions only Patient Tobacco Use Status: Never used Tobacco e-Cigarette/Vaping Use: Never Used Second Hand Smoke Exposure: Yes Substance Use Type: Marijuana Advance Directives: No Advance Directives Information Provided: No service: No Current occupational status: employed Current occupation: [email or web address] Cognitive needs: No Hearing needs: No Vision needs: No Physical Exam ED Vital Signs: Vital Signs - 24 hr 02/28/25 05:21 02/28/25 07:40 Temperature 97.1 F 97.1 F Pulse Rate 90 90 Respiratory Rate 20 20 Blood Pressure 105/58 L 105/58 L Pulse Oximetry 98 98 Oxygen Delivery Method Room Air Room Air BMI result Body Mass Index 30.6 Const General: cooperative, no acute distress, alert and awake Nutritional Appearance: well nourished Orientation/consciousness: patient oriented x3 HENMT Head: Yes normal to inspection and Yes atraumatic Ears: hearing grossly normal bilaterally and external ears normal General nose exam: Normal external nose present, no nasal discharge noted and no epistaxis Face and sinus: Yes normal facial exam, No abrasion and No laceration Mouth: Normal oral and palatal mucosa present, no drooling and no muffled voice Eyes General: appearance normal, both eyes and all related structures Periorbital: periorbital findings normal Eyelids: Yes eyelids normal Conjunctivae: conjunctivae normal Pupils: Equal, round and reactive pupils present EOM: EOMs intact bilaterally Neck Neck: Yes normal visual inspection and Yes full ROM Resp Effort & Inspection: normal respiratory effort and able to speak in complete sentences Neuro General: patient oriented x3, moves all extremities and CN's II-XI intact bilaterally Cranial nerves: Yes Equal, round and reactive pupils present Cognition (Neuro): normal cognition Extrem General: Yes normal to inspection, Yes full ROM and Yes capillary refill normal Psych Appearance: grossly normal Mental Status: mental status grossly normal Affect: normal affect Attitude: cooperative Thought process: Normal thought process present Thought content: Normal thought content present Insight: Good insight present (Psych) Medications Administered Discontinued Medications Generic Name Dose Route Start Last Admin Trade Name Freq PRN Reason Stop Dose Admin Dicyclomine HCl 10 mg 02/28/25 07:23 02/28/25 07:31 Dicyclomine Hcl 10 Mg Capsule PO 02/28/25 07:24 10 mg ONCE ONE Administration Medical Decision Making Medical Decision Making [facility] Narrative: Patient is a 34 year old assigned female at , now male, with a history of GERD, anxiety, depression, and migraines presenting to the emergency department today after an episode of an esophageal spasm. Patient's physical exam was as noted in the physical exam portion of this note. Patient's blood work from his visit on 02/27/2025 was unremarkable. Patient's EKG from 02/27/2025 showed no obvious evidence of arrhythmia, ischemia, or infarct. Patient's chest x-ray from 02/27/2025 showed no acute process. Patient was given a dose of Bentyl while in the department. I explained my physical exam findings as well as my interpretation of his 02/27/2025 test results to the patient. I answered all questions asked by the patient. I explained to the patient that his work up yesterday was very reassuring and at this time, a repeat of that work up is not warranted. I stressed the importance of the patient taking his medication as directed (either prescribed or as the over the counter packaging recommends). I stressed the importance of the patient following up with his primary care provider and his GI specialist. I stressed the importance of the patient returning to the emergency department immediately if his symptoms were to worsen or if he were to develop any dizziness, shortness of breath, difficulty breathing, chest pain, blurry vision, loss of vision, nausea, vomiting, abdominal pain, fever, chills, back pain, or any other complaints. Patient verbalized agreement and understanding with this treatment plan and discharge. Differential Diagnosis Differential Diagnoses: The differential diagnosis associated with the presentation includes GERD Instentinal cramping Admission/Observation Consideration of admission/observation: Escalation of care including admission/observation considered Patient would have been admitted to the hospital had his work up had any findi ngs where hospital admission was appropriate and his clinical presentation warranted hospital admission. Independent Interpretation I performed an independent interpretation of an: EKG and Plain X-Ray Interpretation: I independently interpreted this EKG performed on 02/27/2025 and am in agreement with the below findings: Vent. Rate: 79 BPM Atrial Rate: 79 BPM P-R Int: 162 ms QRS Dur: 96 ms QT Int: 354 ms P-R-T Axes: 68 52 23 degrees QTcB Int: 405 ms Normal sinus rhythm No previous ECGs available Electronically Signed By: Sam Wood Dictated By: Sam Wood MD Signed By: Electronically signed by Sam Wood MD 02/27/25 1255 My interpretation is in agreement with the radiologist's impression of this imaging study performed on 02/27/2025 as written below. EXAMINATION: XR CHEST 1 VIEW HISTORY: rule out aspiration COMPARISON: There are no prior studies available for comparison. FINDINGS: A single AP portable view of the chest performed at 10:37 AM is submitted. The lungs are expanded and clear. There is no pleural effusion, pneumothorax, or pulmonary vascular congestion. The heart is normal in size. The bones are intact. XR/XR chest 1V IMPRESSION: Clear lungs. Electronically signed by: Yogesh Beatty MD 02/27/2025 10:47 AM EST Dictated By: Yogesh Beatty MD Signed By: Electronically signed by Yogesh Beatty MD 02/27/25 1047 Radiology Impression Discussion of test interpretation with radiology: I have reviewed the radiologist's reading. (from 02/27/2025) Discharge Plan Discharge Clinical Impression: Chronic GERD Patient Disposition: Home, Self-Care Instructions: GERD (Gastroesophageal Reflux Disease) (DC) Additional Instructions: Your work up yesterday was reassuring there is no EMERGENT process causing your symptoms. Take the medication you have been prescribed and follow up with your GI specialist. IF you are prescribed home medications and/or you are taking over the counter medications at home - it is very important you continue to do so as prescribed / directed unless told otherwise by a healthcare provider. Follow up with your primary care provider. Do your best to stay well hydrated and rest. Return to the emergency department immediately if your symptoms worsen or if you develop any numbness, tingling, dizziness, shortness of breath, difficulty breathing, chest pain, blurry vision, loss of vision, nausea, vomiting, abdominal pain, fever, chills, back pain, or any other complaints. If you do not have a primary care provider - call any of the below numbers to establish and follow up with a primary care provider. [facility] [place] ([place] [phone] [place] [address], [address] [facility] ([address] [place] [address]) [phone], [address] [place], [address] [facility] ([address]) [phone] [address] [facility], [address] [place], [address] [facility] ([place]) [phone] [place] [address], [address] [place], [address] [facility] [place] [facility] [phone] [place] [address], [address] Please see the information below about our Patient Portal. If you are not yet enrolled in the [facility] Patient Portal, you will receive an enrollment email invitation following your visit to any [facility] setting. You may also self-enroll in the Patient Portal by visiting our website: [email or web address] The following information is required to access the Patient Portal: - Your [facility] Medical Record Number - Your personal home email address (must match what is in your electronic medical record, Registration staff can assist with this) - Name - Date of Capabilities of the Patient Portal: - Message some providers - View upcoming appointments - Access your health summary, medical history, and visit history - View current conditions and allergies - View procedure and lab results - View your medications, including guidelines, side effects, and precautions - Complete pre-appointment questionnaires requested by your provider - Ready summary reports of your office visits and procedures To access the Patient Portal Mobile [employer], follow these directions: - Search [employer] in the Joby Store or Google [employer] Store - Download the Joby - Search for [facility] - Enter your login/password Prescriptions: New dicyclomine 20 mg tablet 20 mg PO TID Qty: 7 0RF No Action omeprazole 40 mg capsule,delayed release(DR/EC) 40 mg PO DAILY 90 Days Qty: 90 1RF Rx Instructions: pt is taking citalopram in the pn and takes ppi in the am to avoid interaction sucralfate 1 gram tablet 1 g PO Q6H 14 Days Qty: 56 0RF omeprazole 20 mg tablet,delayed release (DR/EC) 20 mg PO DAILY 90 Days Qty: 90 0RF ondansetron 4 mg tablet,disintegrating 4 mg PO Q8H PRN (Reason: nausea and vomiting) Qty: 10 0RF citalopram 40 mg tablet 40 mg PO DAILY testosterone cypionate 200 mg/mL oil 100 mg topical QWEEK alcohol swabs Pads, Medicated 0 pad topical DIRECTED bupropion HCl 150 mg tablet extended release 24 hr 150 mg PO QAM lorazepam 1 mg tablet 1 mg PO DAILY PRN simethicone [Gas Relief (simethicone)] 125 mg tablet,chewable 125 mg PO TID PRN (Reason: abdominal distention) Qty: 90 2RF Stand Alone Forms: Work/School Release Interventions: ED Discharge Assessment Last Done: 02/28/25 07:40 Discharge Date/Time: 02/28/25 07:41 Print Language: French
[2025-02-28 07:40] VITALS: BP 105/58; PULSE 90; RESP 20; TEMP 36.2; O2SAT 98
== END 2025-02-28 07:41 | disposition home or self-care (01) ==
PROVIDERS: Emergency Provider Emergency Medicine
DX: K21.9 Gastro-esophageal reflux disease without esophagitis (principal); R10.9 Unspecified abdominal pain; F41.9 Anxiety disorder, unspecified; G43.909 Migraine, unspecified, not intractable, without status migrainosus; F32.A Depression, unspecified; Z79.899 Other long term (current) drug therapy
CPT/HCPCS: 99282; 99283

== ENCOUNTER 2025-03-04 09:54 | Outpatient (AMB) | payer OTHER, SELFPAY ==
--- NOTE | 2025-03-04 09:57 | MHC.OFFVIS ---
Vital Signs 03/04/25 10:04 Height 5 ft 3 in Weight 175 lb BMI 31.0 BP 120/65 Blood Pressure Location Rt brachial Position Sitting Pulse 87 Intake Visit Reasons: rectal fissure Intake Note: Patient seen at [facility] on 02-27-2025. Referred for evaluation of anal fissure. Patient c/o: external hemorrhoid, bleeding. Hx of Colonoscopy at [facility] last year. 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 Surgical History (Updated 03/04/25 @ 10:04 by BERNABE Almendarez) Hx of bilateral mastectomy Hx of wisdom tooth extraction Hx of tonsillectomy No pertinent past surgical history Family History Father COPD (chronic obstructive pulmonary disease) Diabetes Mother Family history of thyroid problem Paternal Aunt Skin cancer Paternal Uncle Skin cancer Social History Housing: House Alcohol intake: current Alcohol intake frequency: holidays/special occasions only Patient Tobacco Use Status: Never used Tobacco e-Cigarette/Vaping Use: Never Used Second Hand Smoke Exposure: Yes Substance Use Type: Marijuana service: No Current occupational status: employed Current occupation: [employer] Cognitive needs: No Hearing needs: No Vision needs: No Coding
--- NOTE | 2025-03-04 09:57 | MHC.OFFVIS ---
Vital Signs 03/04/25 10:04 Height 5 ft 3 in Weight 175 lb BMI 31.0 BP 120/65 Blood Pressure Location Rt brachial Position Sitting Pulse 87 Intake Visit Reasons: rectal fissure Intake Note: Patient seen at [facility] on 02-27-2025. Referred for evaluation of anal fissure. Patient c/o: external hemorrhoid, bleeding. Allergies No Known Allergies Allergy (Verified 03/04/25 10:02) Medication List - Last Reconciled 03/04/25 by Alfonso Douglas MD alcohol swabs 0 pad topical DIRECTED bupropion HCl XL 150 mg PO QAM citalopram 40 mg PO DAILY dicyclomine 20 mg PO TID lorazepam 1 mg PO DAILY PRN omeprazole 20 mg PO DAILY 90 days omeprazole 40 mg PO DAILY 3 months ondansetron 4 mg PO Q8H PRN simethicone (Gas Relief (simethicone)) 125 mg PO TID PRN sucralfate 1 g PO Q6H 14 days testosterone cypionate 100 mg topical QWEEK HPI HPI rectal fissure: Details: 34-year-old male, born female, referred for rectal bleeding. He says that he has had this problem with passage of bright blood per rectum with bowel movements for about 6 years now. He occasionally has pain as well. He also describes prolapse of hemorrhoids. He says that frequently, he has hemorrhoids would come out and he has to push this back in manually. He also denies chronic GI complaints. He has reflux disease and had been following a etymology professor before. He is currently on Prilosec after a visit in the ER for his reflux symptoms. He says he is healthy overall. 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 Surgical History Hx of bilateral mastectomy Hx of wisdom tooth extraction Hx of tonsillectomy No pertinent past surgical history Family History Father COPD (chronic obstructive pulmonary disease) Diabetes Mother Family history of thyroid problem Paternal Aunt Skin cancer Paternal Uncle Skin cancer Social History Housing: House Alcohol intake: current Alcohol intake frequency: holidays/special occasions only Patient Tobacco Use Status: Never used Tobacco e-Cigarette/Vaping Use: Never Used Second Hand Smoke Exposure: Yes Substance Use Type: Marijuana service: No Current occupational status: employed Current occupation: [employer] Cognitive needs: No Hearing needs: No Vision needs: No Review of Systems Const Denies chills and Denies fever(s) Card Denies chest pain, Denies dyspnea and Denies dyspnea on exertion Resp Denies cough, Denies dyspnea and Denies dyspnea on exertion GI Reports hematochezia and Denies change in bowel habits Denies hematuria Musc Denies back pain and Denies limited range of motion Neuro Denies focal weakness and Denies convulsions Psych Denies depression and Denies mood swings Physical Exam Vital Signs: Last Vital Signs Pulse 87 03/04/25 10:04 BP 120/65 03/04/25 10:04 BMI result Body Mass Index 31.0 Const General: comfortable and no acute distress Orientation/consciousness: patient oriented x3 Neck Neck: Yes no lymphadenopathy Resp Auscultation: clear to auscultation bilaterally Cardio Rhythm: regular rhythm GI Other: Rectal exam shows external hemorrhoids, right more than the left Palpation (GI): Soft to palpation, nontender and no guarding Neuro General: patient oriented x3 Office Procedures Anoscopy He was in kneeling rita-knife position. The anoscope was gently inserted. A full examination of the anal canal was done. He had large mixed columns of internal external hemorrhoids, with larger internal component display on the posterior aspect. This appeared to bleed easily. There was no fissure. There was no ulceration. There were no lesions seen. There was no induration on digital exam [id number] Assessment & Plan Assessment & Plan (1) Hemorrhoids that prolapse with straining and require manual replacement back inside anal canal: Code(s): K64.2 - Third degree hemorrhoids Category: Medical Plan: He has large internal external hemorrhoidal columns with frequent prolapse and bleeding. He says that he has been having this for 6 years. He is thinking having hemorrhoidectomy I had a long discussion with him about the technique of exam under anesthesia and hemorrhoidectomy. I reviewed the risks including but not limited to bleeding, infections and postop pain. I explained to him what to expect postoperatively He understands and says he will call the office once he is ready to proceed. His mother was with him during the visit. Coding Level of Care Code New Pt Level 3 (54967) Diagnoses Hemorrhoids that prolapse with straining and require manual replacement back inside anal canal K64.2 CPT Codes Details - CPT: [id number] ([id number])
[2025-03-04 10:04] VITALS: BP 120/65; PULSE 87; BMI 31.0
--- OUTSIDE RECORDS SUMMARY | 2025-03-04 10:46 | XMS_ITS | Encounter Summary ---
Author Organization [facility] Address [address] [place] [address] Phone Care Team Providers Care Supervisor Sulfuric Acid Plant Name Role Phone Keyur Gonzalez ROTARY DUMP OPERATOR Primary Care Provider [phone]- [phone] Encounter Details Date Type Department Care Team (Late st Contact Info) Description 07/17/2024 Procedure Pass [facility], Ct Scan - [address] [address] Social History Tobacco Use Types Packs/Day Years [...] on filedocumented in this encounter Care Teams Supervisor Sulfuric Acid Plant Relationship Specialty Start Date End Date Keyur Gonzalez NP [address] [place] [address] PCP - General Nurse Practitioner 04/16/24 documented as of this encounter Additional Source Comments The information contained in this document represents components of the legal health record. It is not the complete legal health record.[facility]
--- OUTSIDE RECORDS SUMMARY | 2025-03-04 10:46 | XMS_ITS | Encounter Summary ---
Author Organization [facility] Address [address] [place] [address] Phone Care Team Providers Care Port Warden Name Role Phone Pcp, Unknown Primary Care Provider Keyur Shahid NURSERY RN Primary Care Provider [phone]- [phone] Encounter Details Date Type Department Care Team ([facility] st Contact Info) Description 01/31/2024 Procedure Pass [facility] Endoscopy Admitting Dept Virtual Department [address] [place] [id number] Social History Tobacco Use Types Packs/Day Years [...] on filedocumented in this encounter Care Teams Port Warden Relationship Specialty Start Date End Date Pcp, Unknown PCP - General 11/29/23 04/15/24 Keyur Gonzalez NP [address] [place] [address] PCP - General Nurse Practitioner 04/16/24 documented as of this encounter Additional Source Comments The information contained in this document represents components of the legal health record. It is not the complete legal health record.[facility]
--- OUTSIDE RECORDS SUMMARY | 2025-03-04 10:46 | XMS_ITS | Encounter Summary ---
Author Organization [facility] Address [address] [place] [address] Phone Care Team Providers Care Speech Therapist Name Role Phone Karen Albarran MD Primary Care Provider Unava ilable Encounter Details Date Type Department Care Team (Late st Contact Info) Description 02/01/2011 Documentation [facility] [address] [place], [place] [id number] Family Medicine, Physician [address] [place] [address] Social History Tobacco Use Types Packs/Day Years [...] on filedocumented in this encounter Care Teams Speech Therapist Relationship Specialty Start Date End Date Karen Albarran MD PCP - General 10/21/16 documented as of this encounter
--- OUTSIDE RECORDS SUMMARY | 2025-03-04 10:46 | XMS_ITS | Encounter Summary ---
Author Organization [facility] Address [address] [place] [address] Phone Care Team Providers Care Wastewater Engineer Name Role Phone Karen Albarran MD Primary Care Provider Unava ilable Encounter Details Date Type Department Care Team (Late st Contact Info) Description 09/30/2011 Documentation [facility] [address] [place], [place] [id number] Family Medicine, Physician [address] [place] [address] Social History Tobacco Use Types Packs/Day Years [...] on filedocumented in this encounter Care Teams Wastewater Engineer Relationship Specialty Start Date End Date Karen Albarran MD PCP - General 10/21/16 documented as of this encounter
--- OUTSIDE RECORDS SUMMARY | 2025-03-04 10:46 | XMS_ITS | Clinical Summary ---
Author Organization [facility] Address [address] [place] [address] [address] [place] [address] Phone Care Team Providers Care Dry Ice Maker Name Role Phone Keyur Gonzalez ENVIRONMENTAL HEALTH MANAGER Primary Care Provider +1- [phone] Allergies No known active allergies Medications omeprazole [...] Type Department Care Team Description 01/15/2025 Telephone [facility] [address] [facility], 3rd Floor, [address] [place] [address] Gonzalo Sutherland MD from Last 3 Months [...] Hill MD - 01/31/2024 11:14 AM EST [facility] Patient Name: Catherine Jones Attending MD:: LINDA HILL MD, Procedure Date: 01/31/2024 11:14AM Date of : 1990 Age: 33 Admit Type: Outpatient Gender: Unknown Room: [place] [address] Referring MD: Unknown Unknown Exam Type: Colonoscopy [...] 11:14 AM Procedure Code(s): --- Professional --- 93112, Colonoscopy, flexible; diagnostic, including collection of specimen(s) by brushing or washing, when performed (separateprocedure) --- Technical --- 05243, Colonoscopy, flexible; diagnostic, including collection of specimen(s) by brushing or washing, when performed (separateprocedure) Diagnosis Code(s): --- Professional --- K64.1, Second degree hemorrhoids K62.5, Hemorrhage of anus and rectum Q43.8, Other specified congenital malformations of intestine --- Technical --- K64.1, Second degree hemorrhoids K62.5, Hemorrhage of anus and rectum Q43.8, Other specified congenital malformations of intestine CPT copyright 2021 [employer]. All rights reserved. The codes documented in this report are preliminary and upon hospital nurse liaison reviewmay be revised to meet current compliance requirements. Procedure Date: 01/31/2024 11:14:[address] [place] [address] us Unknown Unknown MD GI PROCEDURE ORDERABLES Final Result * Fecal immunochemical test x1 (FIT) (01/22/2022 9:00 AM EST) Immuno Fecal Occult Negative Negative [facility] Stool (Stool) 01/22/2022 9:0 0 AM EST 01/24/2022 11:14 AM EST us Zoya Dean NP LAB BODY FLUIDS AND STOOL ORDERABLES Final Result [address] [address] from Last 3 Months or Most Recently Relevant to Health Maintenance Insurance MEDICARE PART A & B [facility] [employer] MEDIC[facility] REPLACEMENT [place] [id number] MEDICARE PART A & B [employer] [facility] ONE CARE MEDICARE REPLACEMENT MEDICARE PART A & B [facility] ONE CARE MEDICARE REPLACEMENT MEDICARE PART A & B [facility] ONE CARE MEDICARE REPLACEMENT MEDICARE PART A & B [facility] CARE MEDICARE REPLACEMENT MEDICARE PART A & B [facility] ONE CARE MEDICARE REPLACEMENT Care Teams Dry Ice Maker Relationship Specialty Start Date End Date Keyur Gonzalez NP [address] [place] [address] PCP - General Nurse Practitioner 04/16/24 Additional Source Comments The information contained in this document represents components of the legal health record. It is not the complete legal health record.[facility]
--- OUTSIDE RECORDS SUMMARY | 2025-03-04 10:46 | XMS_ITS | Encounter Summary ---
Author Organization [facility] Address [address] [place] [address] Phone Care Team Providers Care Public Improvement Inspector Name Role Phone Karen Albarran MD Primary Care Provider Unava ilable Encounter Details Date Type Department Care Team (Late st Contact Info) Description 11/04/2010 Documentation [facility] [address] [place], [place] [id number] Family Medicine, Physician [address] [place] [address] Social History Tobacco Use Types Packs/Day Years [...] on filedocumented in this encounter Care Teams Public Improvement Inspector Relationship Specialty Start Date End Date Karen Albarran MD PCP - General 10/21/16 documented as of this encounter
--- OUTSIDE RECORDS SUMMARY | 2025-03-04 10:46 | XMS_ITS | Encounter Summary ---
Author Organization [facility] Address [address] [place] [address] Phone Care Team Providers Care Security Chief Museum Name Role Phone Alexa Tillman CABINET AND TRIM INSTALLER Primary Care Provider Pcp, Unknown Primary Care Provider Keyur Shahid CABINET AND TRIM INSTALLER Primary Care Provider +1- [phone] Encounter Details Date Type Department Care Team (Late st Contact Info) Description 07/20/2022 Procedure Pass [facility] Endoscopy Admitting Dept Virtual Department [address] [place] [address] Social History Tobacco Use Types Packs/Day Years [...] on filedocumented in this encounter Care Teams Security Chief Museum Relationship Specialty Start Date End Date Alexa Tillman NP PCP - General Family Medicine 12/31/21 11/28/23 Pcp, Unknown PCP - General 11/29/23 04/15/24 Keyur Gonzalez NP [address] [place] [address] PCP - General Nurse Practitioner 04/16/24 documented as of this encounter Additional Source Comments The information contained in this document represents components of the legal health record. It is not the complete legal health record.[facility]
--- OUTSIDE RECORDS SUMMARY | 2025-03-04 10:46 | XMS_ITS | Encounter Summary ---
Author Organization [facility] Address [address] [place] [address] Phone Care Team Providers Care Sand Operator Name Role Phone Pcp, Unknown Primary Care Provider Keyur Shahid EPOXY SPECIALIST Primary Care Provider +1- [phone] Encounter Details Date Type Department Care Team (Late st Contact Info) Description 11/29/2023 Procedure Pass [facility], Ct Scan - [address] [address] Social History Tobacco Use Types Packs/Day Years [...] on filedocumented in this encounter Care Teams Sand Operator Relationship Specialty Start Date End Date Pcp, Unknown PCP - General 11/29/23 04/15/24 Keyur Gonzalez NP [address] [place] [address] PCP - General Nurse Practitioner 04/16/24 documented as of this encounter Additional Source Comments The information contained in this document represents components of the legal health record. It is not the complete legal health record.[facility]
--- OUTSIDE RECORDS SUMMARY | 2025-03-04 10:46 | XMS_ITS | Encounter Summary ---
Author Organization [facility] Address [address] [place] [address] Phone Care Team Providers Care Rinkman Name Role Phone Keyur Gonzalez SENIOR UX DEVELOPER Primary Care Provider +1- [phone] Encounter Details Date Type Department Care Team (Late st Contact Info) Description 07/17/2024 Procedure Pass [facility] [address] [place] [address] Social History Tobacco Use Types Packs/Day Years [...] on filedocumented in this encounter Care Teams Rinkman Relationship Specialty Start Date End Date Keyur Gonzalez NP [address] [place] [address] PCP - General Nurse Practitioner 04/16/24 documented as of this encounter Additional Source Comments The information contained in this document represents components of the legal health record. It is not the complete legal health record.[facility]
--- OUTSIDE RECORDS SUMMARY | 2025-03-04 10:47 | XMS_ITS | Encounter Summary ---
Author Organization [facility] Address [address] [place] [address] Phone Care Team Providers Care Stitching Machine Operator Name Role Phone Karen Albarran MD Primary Care Provider Unava ilable Encounter Details Date Type Department Care Team (Late st Contact Info) Description 01/11/2012 Documentation [facility] [address] [place], [place] [id number] Family Medicine, Physician [address] [place] [address] Social History Tobacco Use Types Packs/Day Years [...] on filedocumented in this encounter Care Teams Stitching Machine Operator Relationship Specialty Start Date End Date Karen Albarran MD PCP - General 10/21/16 documented as of this encounter
--- OUTSIDE RECORDS SUMMARY | 2025-03-04 10:47 | XMS_ITS | Encounter Summary ---
Author Organization [facility] Address [address] [place] [address] Phone Care Team Providers Care Safety Deposit Supervisor Name Role Phone Karen Albarran MD Primary Care Provider Unava ilable Encounter Details Date Type Department Care Team (Late st Contact Info) Description 12/01/2011 Documentation [facility] [address] [place], [place] [address] Family Medicine, Physician [address] [place] [address] Social History Tobacco Use Types Packs/Day Years [...] on filedocumented in this encounter Care Teams Safety Deposit Supervisor Relationship Specialty Start Date End Date Karen Albarran MD PCP - General 10/21/16 documented as of this encounter
--- OUTSIDE RECORDS SUMMARY | 2025-03-04 10:47 | XMS_ITS | Clinical Summary ---
Author Organization [facility] Address [address] [place] [address] Phone Care Team Providers Care Postmaster Name Role Phone Karen Albarran MD Primary [...] age to complete this topic Care Teams Postmaster Relationship Specialty Start Date End Date Karen Albarran MD PCP - General 10/21/16
--- OUTSIDE RECORDS SUMMARY | 2025-03-04 10:47 | XMS_ITS | Encounter Summary ---
Author Organization [facility] Address [address] [place] [address] Phone Care Team Providers Care Used Car Sales Manager Name Role Phone Karen Albarran MD Primary Care Provider Unava ilable Encounter Details Date Type Department Care Team (Late st Contact Info) Description 12/01/2011 Documentation [facility] [address] [place], [place] [phone] Family Medicine, Physician [address] [place] [address] Social History Tobacco Use Types Packs/Day Years [...] on filedocumented in this encounter Care Teams Used Car Sales Manager Relationship Specialty Start Date End Date Karen Albarran MD PCP - General 10/21/16 documented as of this encounter
--- OUTSIDE RECORDS SUMMARY | 2025-03-04 10:47 | XMS_ITS | Encounter Summary ---
Author Organization [facility] Address [address] [place] [address] Phone Care Team Providers Care Bridal Consultant Name Role Phone Karen Albarran MD Primary Care Provider Unava ilable Encounter Details Date Type Department Care Team (Late st Contact Info) Description 11/26/2009 Documentation [facility] [address] [place], [place] [phone] Family Medicine, Physician [address] [place] [address] Social History Tobacco Use Types Packs/Day Years [...] on filedocumented in this encounter Care Teams Bridal Consultant Relationship Specialty Start Date End Date Karen Albarran MD PCP - General 10/21/16 documented as of this encounter
--- OUTSIDE RECORDS SUMMARY | 2025-03-04 10:47 | XMS_ITS | Encounter Summary ---
Author Organization [facility] Address [address] [place] [address] Phone Care Team Providers Care Felt Checker Name Role Phone Karen Albarran MD Primary Care Provider Unava ilable Encounter Details Date Type Department Care Team (Late st Contact Info) Description 10/27/2016 Conversion Encounter [facility] - [address] [address] Social History Tobacco Use Types Packs/Day Years [...] on filedocumented in this encounter Care Teams Felt Checker Relationship Specialty Start Date End Date Karen Albarran MD PCP - General 10/21/16 documented as of this encounter
--- OUTSIDE RECORDS SUMMARY | 2025-03-04 10:47 | XMS_ITS | Encounter Summary ---
Author Organization [facility] Address [address] [place] [address] Phone Care Team Providers Care Paymaster Of Purses Name Role Phone Keyur Gonzalez BOW STAPLER Primary Care Provider +1- [phone] Encounter Details Date Type Department Care Team (Late st Contact Info) Description 05/29/2024 Procedure Pass [facility], [address] [address] Social History Tobacco Use Types Packs/Day Years [...] on filedocumented in this encounter Care Teams Paymaster Of Purses Relationship Specialty Start Date End Date Keyur Gonzalez NP [address] [place] [address] PCP - General Nurse Practitioner 04/16/24 documented as of this encounter Additional Source Comments The information contained in this document represents components of the legal health record. It is not the complete legal health record.[facility]
== END 2025-03-04 10:19 | disposition home or self-care (01) ==
LOC: HO.HGS 09:55
PROVIDERS: PCP Nurse Practitioner Family; Visit Provider Surgery
DX: K64.2 Third degree hemorrhoids (principal)
CPT/HCPCS: 46600; 99203

== ENCOUNTER → 2025-03-04 09:54 | Outpatient (BNVA) | payer OTHER, SELFPAY | PROVIDERS: PCP Nurse Practitioner Family; Visit Provider Surgery | DX: K64.2 Third degree hemorrhoids (principal) | CPT/HCPCS: 46600; 99202 ==

== ENCOUNTER 2025-03-11 07:57 | Emergency (ER) | payer OTHER, SELFPAY ==
--- NOTE | ~2025-03-11 | US_ITS ---
EXAMINATION: US ABDOMEN LIMITED CLINICAL INFORMATION: Right upper quadrant pain. COMPARISON: Previous CT of the abdomen and pelvis most recent June 2022 TECHNIQUE: Real-time imaging of the right upper quadrant/gallbladder and common bile duct FINDINGS: GALLBLADDER: The gallbladder is physiologically distended without evidence of stones, sludge, polyps, wall thickening or pericholecystic fluid. COMMON BILE DUCT: Normal in caliber measuring 0.4 cm in diameter. FREE FLUID: None. US/US abdomen limited IMPRESSION: Unremarkable exam. Electronically signed by: Deepa Shoemaker MD 03/11/2025 11:18 AM [facility]
[2025-03-11 08:03] VITALS: BP 120/62; PULSE 81; RESP 16; TEMP 36.7; O2SAT 99; BMI 31.0
--- NOTE | 2025-03-11 08:03 | ED.GENADULT ---
HPI - General Adult General Chief complaint: Abdominal Pain Stated complaint: abd pain Time Seen by Provider: 03/11/25 10:28 Source: patient and old records reviewed Mode of arrival: ambulatory Limitations: no limitations History of Present Illness ED Provider: CORBIN PAZ narrative: 34-year-old patient with past medical history of GERD has had 2 the on antacids currently he takes dicyclomine, omeprazole, Carafate, Zofran. He notes over the past week he has had increasing problems causing pain and discomfort in his upper abdomen he has intermittent nausea vomiting with bile. He is taking his medications but he states he could eat anything and it could trigger symptoms. He did have a attempted EGD in the past causing bronchospasm needing intubation so procedure was held. He has not seen his uniform cap operator recently. Has no fevers. Has no sore throat. Has no diarrhea he denies any abdominal surgery MD complaint: Abdominal pain Onset (ago): month(s) Location: abdomen Radiation: non-radiation Severity: severe Pain Consistency: intermittent Relieving factors: none Exacerbating factors: eating Associated symptoms: loss of appetite, malaise and nausea/vomiting Treatments prior to arrival: other Related Data Home Medications ?Medication ?Instructions ?Recorded ?Confirmed alcohol swabs 0 pad topical DIRECTED 08/31/20 03/04/25 citalopram 40 mg tablet 40 mg PO DAILY 08/31/20 03/04/25 testosterone cypionate 200 mg/mL 100 mg topical QWEEK 08/31/20 03/04/25 intramuscular oil bupropion HCl 150 mg 24 hr tablet, 150 mg PO QAM 11/11/22 03/04/25 extended release lorazepam 1 mg tablet 1 mg PO DAILY PRN 11/11/22 03/04/25 Previous Rx's ?Medication ?Instructions ?Recorded simethicone 125 mg chewable tablet 125 mg PO TID PRN abdominal 06/02/22 (Gas Relief (simethicone)) distention #90 tabs omeprazole 40 mg capsule,delayed 40 mg PO DAILY 3 months #90 caps 08/09/22 release omeprazole 20 mg tablet,delayed 20 mg PO DAILY 90 days #90 tabs 02/27/25 release ondansetron 4 mg disintegrating 4 mg PO Q8H PRN nausea and 02/27/25 tablet vomiting #10 tabs sucralfate 1 gram tablet 1 g PO Q6H 14 days #56 tabs 02/27/25 dicyclomine 20 mg tablet 20 mg PO TID abdominal cramping #7 02/28/25 tabs Allergies Allergy/AdvReac Type Severity Reaction Status Date / Time No Known Allergies Allergy Verified 03/11/25 08:05 Review of Systems Review of Systems: Yes all other systems are reviewed and are negative PMFSH Past Medical History Attestation statement: The following information was validated with the patient. 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 Surgical History Hx of bilateral mastectomy Hx of wisdom tooth extraction Hx of tonsillectomy No pertinent past surgical history Family History Family History Father COPD (chronic obstructive pulmonary disease) Diabetes Mother Family history of thyroid problem Paternal Aunt Skin cancer Paternal Uncle Skin cancer Social History Social History Housing: House Alcohol intake: current Alcohol intake frequency: holidays/special occasions only Patient Tobacco Use Status: Never used Tobacco e-Cigarette/Vaping Use: Never Used Second Hand Smoke Exposure: Yes Substance Use Type: Marijuana Advance Directives: No Advance Directives Information Provided: No service: No Current occupational status: employed Current occupation: [employer] Cognitive needs: No Hearing needs: No Vision needs: No Physical Exam ED Vital Signs: Vital Signs - 24 hr 03/11/25 08:03 Temperature 98.0 F Pulse Rate 81 Respiratory Rate 16 Blood Pressure 120/62 Pulse Oximetry 99 Oxygen Delivery Method Room Air BMI result Body Mass Index 31.0 Appearance: Alert. Oriented X3. No acute distress. Eyes: Pupils equal, round and reactive to light. ENT: Pharynx normal. Neck: Normal inspection. Neck supple. CVS: Normal heart rate and rhythm. Pulses normal. Respiratory: No respiratory distress. Breath sounds normal. Abdomen: Soft no rebound or guarding but does have tenderness to palpation right upper quadrant Skin: Skin warm and dry. Normal skin color. Normal skin turgor. Extremities: No lower extremity edema. No calf ttp Neuro: Oriented X 3. No motor deficit. No sensory deficit. CN2-12 intact Course Course Course Narrative: This is a Rapid Medical Examination (RME) performed by Garrett Harper PA-C in triage. Full HPI, ROS, assessment and treatment plan per primary provider in the Main ED. Hx: 34 yo F to M transgender here for eval of my gerd . seen in ED, prescribed various medications (dicyclomine, sucralfate, omeprazole, zofran) he's been taking without relief. when asked if he has a GI doctor he says I think so . reports continued N/V, sweats, chills. no sick contacts. PE/vitals: well appearing Plan: labs, viral swabs Medications Administered Discontinued Medications Generic Name Dose Route Start Last Admin Trade Name Freq PRN Reason Stop Dose Admin Lidocaine HCl 15 ml 03/11/25 10:39 03/11/25 10:57 Lidocaine Hcl Viscous 2 % 15 Ml Solution MUCOUS MEM 03/11/25 10:40 15 ml ONCE ONE Administration Metoclopramide HCl 10 mg 03/11/25 10:39 03/11/25 10:56 Metoclopramide Hcl 10 Mg Tablet PO 03/11/25 10:40 10 mg ONCE ONE Administration Medical Decision Making Medical Decision Making [facility] Narrative: 34-year-old patient here with complaint of upper abdominal pain has had this in the past is on multiple medications but has not seen his GI doctor recently. At this time has pain in the right upper quadrant epigastric area he is going to get basic labs, lipase, LFTs I am going to get a focal ultrasound of the gallbladder. I will give supportive medications and reassess. He has no signs of acute abdomen at this time. Differential Diagnosis Differential Diagnoses: The differential diagnosis associated with the presentation includes Gastritis, biliary colic, GERD, IBS Admission/Observation Consideration of admission/observation: Escalation of care including admission/observation considered Workup reassuring including labs at this time stable for OR Lab Data [facility] Lab Attestation statement: I reviewed the patient's lab results. 03/11/25 08:50 03/11/25 08:50 Labs: Lab Results 03/11/25 Range/Units 08:50 WBC 11.5 H (4.8-10.8) X10*3/uL RBC 5.08 (4.20-5.50) X10*6/uL Hgb 15.0 (12.0-16.0) g/dl Hct 44.1 (37.0-47.0) % MCV 86.8 (80.0-98.0) fL MCH 29.5 (27.0-33.0) pg MCHC 34.0 (31.0-35.0) g/dl RDW 12.2 (11.0-16.0) % Plt Count 355 (160-400) X10*3/uL MPV 8.8 L (9.4-12.3) fL Immature Gran % (Auto) 0.3 (0.0-0.4) % Neut % (Auto) 79.7 H (45-73) % Lymph % (Auto) 11.1 L (20-40) % [place] % (Auto) 7.8 (2-11) % Eos % (Auto) 0.7 (0-4) % Baso % (Auto) 0.4 (0-2) % Lymph # (Auto) 1.3 (1.2-4.9) X10*3/uL [place] # (Auto) 0.9 (0.1-1.2) X10*3/uL Eos # (Auto) 0.1 (0.0-0.4) X10*3/uL Baso # (Auto) 0.1 (0.0-0.2) X10*3/uL Abs Immat Gran (auto) 0.03 (0.00-0.03) X10*3/uL Absolute Neuts (auto) 9.2 H (2.0-8.3) x10*3/uL Absolute Nucleated RBC 0.000 (0.0-0.012) X10*3/uL Nucleated RBC % (auto) 0.0 (0.0-0.2) /100WBC Sodium 141 (135-145) mmol/L Potassium 4.3 D (3.3-5.1) mmol/L Chloride 108 (96-108) mmol/L Carbon Dioxide 27 (22-29) mmol/L Anion Gap 10 L (12-20) BUN 9 (9-16) mg/dL Creatinine 1.05 (0.5-1.4) mg/dL Estim Creat Clear Calc 75.9 Estimated GFR > 60 Random Glucose 105 (60-115) mg/dL Calcium 9.3 (8.4-10.2) mg/dL Magnesium 2.2 (1.6-2.6) mg/dL Total Bilirubin 0.3 (0.0-1.0) mg/dL Direct Bilirubin 0.1 (0.0-0.5) mg/dL AST 25 (5-31) U/L ALT 16 (0-31) U/L Alkaline Phosphatase 85 (39-117) U/L Total Protein 7.2 (6.5-8.0) g/dL Albumin 4.5 (3.5-5.0) g/dL Lipase 17 (8-78) U/L Influenza Type A (PCR) NEGATIVE (Negative) Influenza Type B (PCR) NEGATIVE (Negative) RSV RNA Qual (PCR) NEGATIVE (Negative) SARS-CoV-2 RNA (RT-PCR) NEGATIVE (Negative) Independent Interpretation I performed an independent interpretation of an: Ultrasound (No finding) Radiology Impression Discussion of test interpretation with radiology: I have reviewed the radiologist's reading. External Record Review External record reviewed: Outpatient record and Prior outpatient labs Prescription Management I considered prescription management with: Other Discharge Plan Discharge Clinical Impression: Chronic GERD Patient Disposition: Home, Self-Care Instructions: GERD (Gastroesophageal Reflux Disease) (ED), Acute Nausea and Vomiting (ED) Additional Instructions: Fab your labs are reassuring in your ultrasound did not show any acute pathology of your gallbladder all of the ducts were normal, there were no stones and there is no inflammation in the area At this time I would advise he had a very bland diet for the next 72 hours and advance slowly Return for any worsening symptoms or concerns We checked your kidney function, liver panel, pancreatitis panel and it was all normal Continue your medications Prescriptions: No Action omeprazole 40 mg capsule,delayed release(DR/EC) 40 mg PO DAILY 90 Days Qty: 90 1RF Rx Instructions: pt is taking citalopram in the pn and takes ppi in the am to avoid interaction sucralfate 1 gram tablet 1 g PO Q6H 14 Days Qty: 56 0RF omeprazole 20 mg tablet,delayed release (DR/EC) 20 mg PO DAILY 90 Days Qty: 90 0RF ondansetron 4 mg tablet,disintegrating 4 mg PO Q8H PRN (Reason: nausea and vomiting) Qty: 10 0RF dicyclomine 20 mg tablet 20 mg PO TID Qty: 7 0RF citalopram 40 mg tablet 40 mg PO DAILY testosterone cypionate 200 mg/mL oil 100 mg topical QWEEK alcohol swabs Pads, Medicated 0 pad topical DIRECTED bupropion HCl 150 mg tablet extended release 24 hr 150 mg PO QAM lorazepam 1 mg tablet 1 mg PO DAILY PRN simethicone [Gas Relief (simethicone)] 125 mg tablet,chewable 125 mg PO TID PRN (Reason: abdominal distention) Qty: 90 2RF Stand Alone Forms: Work/School Release Print Language: Fijian
[2025-03-11 08:55] LABS: MANUAL DIFF FLAG NO
[2025-03-11 09:00] LABS: Hematocrit 44.1 % (37.0-47.0); Hemoglobin 15.0 g/dl (12.0-16.0); Imm Gran Abs Auto 0.03 X10*3/uL (0.00-0.03); Imm Gran Pct Auto 0.3 % (0.0-0.4); Lymphocytes Absolute Auto 1.3 X10*3/uL (1.2-4.9); Mean Corpuscular HGB Conc 34.0 g/dl (31.0-35.0); Mean Corpuscular Hemoglobin 29.5 pg (27.0-33.0); Mean Corpuscular Volume 86.8 fL (80.0-98.0); NRBC Abs Auto 0.000 X10*3/uL (0.0-0.012); NRBC Pct Auto 0.0 /100WBC (0.0-0.2); Platelet Count 355 X10*3/uL (160-400); Red Blood Count 5.08 X10*6/uL (4.20-5.50); White Blood Count 11.5 X10*3/uL (4.8-10.8)
[2025-03-11 09:13] LABS: Alanine Aminotransferase 16 U/L (0-31); Albumin Level 4.5 g/dL (3.5-5.0); Alkaline Phosphatase 85 U/L (39-117); Anion Gap 10 (12-20); Aspartate Amino Transferase 25 U/L (5-31); Blood Urea Nitrogen 9 mg/dL (9-16); Calcium 9.3 mg/dL (8.4-10.2); Carbon Dioxide 27 mmol/L (22-29); Chloride 108 mmol/L (96-108); Creatinine Clr Calc Pharmacy 75.9; Estimated Glomerular Filt Rate > 60; Lipase 17 U/L (8-78); Magnesium 2.2 mg/dL (1.6-2.6); Potassium 4.3 mmol/L (3.3-5.1); Sodium 141 mmol/L (135-145); Total Protein 7.2 g/dL (6.5-8.0)
[2025-03-11 10:02] LABS: Resp Syncy Virus RNA Qual PCR NEGATIVE (Negative); SARS COV2 PCR INHOUSE NEGATIVE (Negative)
[2025-03-11] MEDS: Lidocaine HCl Viscous 2 % 15 ML SOLUTION MUCOUS MEM (10:57)
[2025-03-11 11:36] VITALS: BP 96/49; PULSE 66; RESP 16; O2SAT 99
[2025-03-11] MEDS: Magnesium Hydrox/Alum Hydrox 30 ML ORAL.SUSP 15 ML PO (11:49)
[2025-03-11 11:52] VITALS: BP 100/55; PULSE 66; RESP 16; TEMP 37.1; O2SAT 99
--- OUTSIDE RECORDS SUMMARY | 2025-03-11 14:09 | XMS_ITS | Clinical Summary ---
Author Organization [facility] Address [address] [place] [address] [address] [place] [address] Phone Care Team Providers Care Fur Dyer Name Role Phone Keyur Gonzalez KNOTTER Primary Care Provider +1- [phone] Allergies No known active allergies Medications omeprazole [...] Type Department Care Team Description 01/15/2025 Telephone [facility] [address] [facility], 3rd Floor, [address] [place] [address] Gonzalo Sutherland MD from Last 3 Months [...] Hill MD - 01/31/2024 11:14 AM EST [facility] Patient Name: Catherine Jones Attending MD:: LINDA HILL MD, Procedure Date: 01/31/2024 11:14AM Date of : 1990 Age: 33 Admit Type: Outpatient Gender: Unknown Room: [place] [address] Referring MD: Unknown Unknown Exam Type: Colonoscopy [...] 11:14 AM Procedure Code(s): --- Professional --- 48906, Colonoscopy, flexible; diagnostic, including collection of specimen(s) by brushing or washing, when performed (separateprocedure) --- Technical --- 66425, Colonoscopy, flexible; diagnostic, including collection of specimen(s) by brushing or washing, when performed (separateprocedure) Diagnosis Code(s): --- Professional --- K64.1, Second degree hemorrhoids K62.5, Hemorrhage of anus and rectum Q43.8, Other specified congenital malformations of intestine --- Technical --- K64.1, Second degree hemorrhoids K62.5, Hemorrhage of anus and rectum Q43.8, Other specified congenital malformations of intestine CPT copyright 2021 [employer]. All rights reserved. The codes documented in this report are preliminary and upon icd 9 coder reviewmay be revised to meet current compliance requirements. Procedure Date: 01/31/2024 11:14:[address] [place] [address] us Unknown Unknown MD GI PROCEDURE ORDERABLES Final Result * Fecal immunochemical test x1 (FIT) (01/22/2022 9:00 AM EST) Immuno Fecal Occult Negative Negative [facility] Stool (Stool) 01/22/2022 9:0 0 AM EST 01/24/2022 11:14 AM EST us Zoya Dean NP LAB BODY FLUIDS AND STOOL ORDERABLES Final Result [address] [address] from Last 3 Months or Most Recently Relevant to Health Maintenance Insurance MEDICARE PART A [facility] REPLACEMENT [place]ENDOZA [id number] MEDICARE PART A & B [facility] ONE CARE MEDICARE REPLACEMENT MEDICARE PART A & B [facility] ONE CARE MEDICARE REPLACEMENT MEDICARE PART A & B [facility] ONE CARE MEDICARE REPLACEMENT MEDICARE PART A & B [facility] CARE MEDICARE REPLACEMENT MEDICARE PART A & B [facility] ONE CARE MEDICARE REPLACEMENT Care Teams Fur Dyer Relationship Specialty Start Date End Date Keyur Gonzalez NP [address] [place] [address] PCP - General Nurse Practitioner 04/16/24 Additional Source Comments The information contained in this document represents components of the legal health record. It is not the complete legal health record.[facility]
--- OUTSIDE RECORDS SUMMARY | 2025-03-11 14:09 | XMS_ITS | Encounter Summary ---
Author Organization [facility] Address [address] [place] [address] Phone Care Team Providers Care Trust Operations Assistant Name Role Phone Alexa Tillman ECONOMICS TEACHER Primary Care Provider Pcp, Unknown Primary Care Provider Keyur Shahid ECONOMICS TEACHER Primary Care Provider +1- [phone] Encounter Details Date Type Department Care Team (Late st Contact Info) Description 07/20/2022 Procedure Pass [facility] Endoscopy Admitting Dept Virtual Department [address] [place] [address] Social History Tobacco Use Types Packs/Day Years [...] on filedocumented in this encounter Care Teams Trust Operations Assistant Relationship Specialty Start Date End Date Alexa Tillman NP PCP - General Family Medicine 12/31/21 11/28/23 Pcp, Unknown PCP - General 11/29/23 04/15/24 Keyur Gonzalez NP [address] [place] [address] PCP - General Nurse Practitioner 04/16/24 documented as of this encounter Additional Source Comments The information contained in this document represents components of the legal health record. It is not the complete legal health record.[facility]
--- OUTSIDE RECORDS SUMMARY | 2025-03-11 14:09 | XMS_ITS | Encounter Summary ---
Author Organization [facility] Address [address] [place] [address] Phone Care Team Providers Care Power Plant Manager Name Role Phone Karen Albarran MD Primary Care Provider Unava ilable Encounter Details Date Type Department Care Team (Late st Contact Info) Description 09/30/2011 Documentation [facility] [address] [place], [place] [id number] Family Medicine, Physician [address] [place] [address] Social History Tobacco Use Types Packs/Day Years [...] on filedocumented in this encounter Care Teams Power Plant Manager Relationship Specialty Start Date End Date Karen Albarran MD PCP - General 10/21/16 documented as of this encounter
--- OUTSIDE RECORDS SUMMARY | 2025-03-11 14:10 | XMS_ITS | Encounter Summary ---
Author Organization [facility] Address [address] [place] [address] Phone Care Team Providers Care Adjunct Professor Of Voice Name Role Phone Pcp, Unknown Primary Care Provider Keyur Sahhid HEALTH AND SAFETY REPRESENTATIVE Primary Care Provider +1- [phone] Encounter Details Date Type Department Care Team ([facility] st Contact Info) Description 01/31/2024 Procedure Pass [facility] Endoscopy Admitting Dept Virtual Department [address] [place] [address] Social History Tobacco Use Types Packs/Day Years [...] on filedocumented in this encounter Care Teams Adjunct Professor Of Voice Relationship Specialty Start Date End Date Pcp, Unknown PCP - General 11/29/23 04/15/24 Keyur Gonzalez NP [address] [place] [address] PCP - General Nurse Practitioner 04/16/24 documented as of this encounter Additional Source Comments The information contained in this document represents components of the legal health record. It is not the complete legal health record.[facility]
--- OUTSIDE RECORDS SUMMARY | 2025-03-11 14:10 | XMS_ITS | Clinical Summary ---
Author Organization [facility] Address [address] [place] [address] Phone Care Team Providers Care Biomed Tech Name Role Phone Karen Albarran MD Primary [...] age to complete this topic Care Teams Biomed Tech Relationship Specialty Start Date End Date Karen Albarran MD PCP - General 10/21/16
--- OUTSIDE RECORDS SUMMARY | 2025-03-11 14:10 | XMS_ITS | Encounter Summary ---
Author Organization [facility] Address [address] [place] [address] Phone Care Team Providers Care Head Of Business Development Name Role Phone Karen Albarran MD Primary Care Provider Unava ilable Encounter Details Date Type Department Care Team (Late st Contact Info) Description 02/01/2011 Documentation [facility] [address] [place], [place] [id number] Family Medicine, Physician [address] [place] [address] Social History Tobacco Use Types Packs/Day Years [...] on filedocumented in this encounter Care Teams Head Of Business Development Relationship Specialty Start Date End Date Karen Albarran MD PCP - General 10/21/16 documented as of this encounter
--- OUTSIDE RECORDS SUMMARY | 2025-03-11 14:10 | XMS_ITS | Encounter Summary ---
Author Organization [facility] Address [address] [place] [address] Phone Care Team Providers Care Personalization Specialist Name Role Phone Karen Albarran MD Primary Care Provider Unava ilable Encounter Details Date Type Department Care Team (Late st Contact Info) Description 01/11/2012 Documentation [facility] [address] [place], [place] [phone] Family Medicine, Physician [address] [place] [address] Social History Tobacco Use Types Packs/Day Years [...] on filedocumented in this encounter Care Teams Personalization Specialist Relationship Specialty Start Date End Date Karen Albarran MD PCP - General 10/21/16 documented as of this encounter
--- OUTSIDE RECORDS SUMMARY | 2025-03-11 14:10 | XMS_ITS | Encounter Summary ---
Author Organization [facility] Address [address] [place] [address] Phone Care Team Providers Care Senior Software Systems Engineer Name Role Phone Keyur Gonzalez ASSISTANT TO THE DEAN Primary Care Provider +1- [phone] Encounter Details Date Type Department Care Team (Late st Contact Info) Description 07/17/2024 Procedure Pass [facility], Ct Scan - [address] [address] Social History Tobacco Use Types Packs/Day Years [...] filedocumented in this encounter Care Teams Senior Software Systems Engineer Relationship Specialty Start Date End Date Keyur Gonzalez NP [address] [place] [address] PCP - General Nurse Practitioner 04/16/24 documented as of this encounter Additional Source Comments The information contained in this document represents components of the legal health record. It is not the complete legal health record.[facility]
--- OUTSIDE RECORDS SUMMARY | 2025-03-11 14:10 | XMS_ITS | Encounter Summary ---
Author Organization [facility] Address [address] [place] [address] Phone Care Team Providers Care President College Or University Name Role Phone Karen Albarran MD Primary Care Provider Unava ilable Encounter Details Date Type Department Care Team (Late st Contact Info) Description 12/01/2011 Documentation [facility] [address] [place], [place] [phone] Family Medicine, Physician [address] [place] [address] Social History Tobacco Use Types Packs/Day Years [...] on filedocumented in this encounter Care Teams President College Or University Relationship Specialty Start Date End Date Karen Albarran MD PCP - General 10/21/16 documented as of this encounter
--- OUTSIDE RECORDS SUMMARY | 2025-03-11 14:10 | XMS_ITS | Encounter Summary ---
Author Organization [facility] Address [address] [place] [address] Phone Care Team Providers Care Dukey Rider Name Role Phone Karen Albarran MD Primary Care Provider Unava ilable Encounter Details Date Type Department Care Team (Late st Contact Info) Description 10/27/2016 Conversion Encounter [facility] - [address] [address] Social History Tobacco Use Types Packs/Day Years [...] on filedocumented in this encounter Care Teams Dukey Rider Relationship Specialty Start Date End Date Karen Albarran MD PCP - General 10/21/16 documented as of this encounter
--- OUTSIDE RECORDS SUMMARY | 2025-03-11 14:10 | XMS_ITS | Encounter Summary ---
Author Organization [facility] Address [address] [place] [address] Phone Care Team Providers Care Administration Manager Name Role Phone Keyur Gonzalez HISTOLOGICAL ILLUSTRATOR Primary Care Provider +1- [phone] Encounter Details Date Type Department Care Team (Late st Contact Info) Description 07/17/2024 Procedure Pass [facility] [address] [place] [address] Social History Tobacco Use Types Packs/Day Years [...] on filedocumented in this encounter Care Teams Administration Manager Relationship Specialty Start Date End Date Keyur Gonzalez NP [address] [place] [address] PCP - General Nurse Practitioner 04/16/24 documented as of this encounter Additional Source Comments The information contained in this document represents components of the legal health record. It is not the complete legal health record.[facility]
--- OUTSIDE RECORDS SUMMARY | 2025-03-11 14:10 | XMS_ITS | Encounter Summary ---
Author Organization [facility] Address [address] [place] [address] Phone Care Team Providers Care Environmental Test Technician Name Role Phone Karen Albarran MD Primary Care Provider Unava ilable Encounter Details Date Type Department Care Team (Late st Contact Info) Description 11/26/2009 Documentation [facility] [address] [place], [place] [phone] Family Medicine, Physician [address] [place] [address] Social History Tobacco Use Types Packs/Day Years [...] on filedocumented in this encounter Care Teams Environmental Test Technician Relationship Specialty Start Date End Date Karen Albarran MD PCP - General 10/21/16 documented as of this encounter
--- OUTSIDE RECORDS SUMMARY | 2025-03-11 14:10 | XMS_ITS | Encounter Summary ---
Author Organization [facility] Address [address] [place] [address] Phone Care Team Providers Care Holter Scanning Technician Name Role Phone Keyur Gonzalez ACUTE CARE REGISTERED NURSE Primary Care Provider +1- [phone] Encounter Details Date Type Department Care Team (Late st Contact Info) Description 05/29/2024 Procedure Pass [facility], [address] [address] Social History Tobacco Use Types Packs/Day Years [...] on filedocumented in this encounter Care Teams Holter Scanning Technician Relationship Specialty Start Date End Date Keyur Gonzalez NP [address] [place] [address] PCP - General Nurse Practitioner 04/16/24 documented as of this encounter Additional Source Comments The information contained in this document represents components of the legal health record. It is not the complete legal health record.[facility]
--- OUTSIDE RECORDS SUMMARY | 2025-03-11 14:10 | XMS_ITS | Encounter Summary ---
Author Organization [facility] Address [address] [place] [address] Phone Care Team Providers Care Air Conditioning Specialist Name Role Phone Karen Albarran MD Primary Care Provider Unava ilable Encounter Details Date Type Department Care Team (Late st Contact Info) Description 12/01/2011 Documentation [facility] Family Medicine [address] [place], [place] [phone] Family Medicine, Physician [address] [place] [address] Social History Tobacco Use Types Packs/Day Years [...] on filedocumented in this encounter Care Teams Air Conditioning Specialist Relationship Specialty Start Date End Date Karen Albarran MD PCP - General 10/21/16 documented as of this encounter
--- OUTSIDE RECORDS SUMMARY | 2025-03-11 14:10 | XMS_ITS | Encounter Summary ---
Author Organization [facility] Address [address] [place] [address] Phone Care Team Providers Care Software Systems Architect Name Role Phone Karen Albarran MD Primary Care Provider Unava ilable Encounter Details Date Type Department Care Team (Late st Contact Info) Description 11/04/2010 Documentation [facility] [address] [place], [place] [phone] Family Medicine, Physician [address] [place] [address] Social History Tobacco Use Types Packs/Day Years [...] on filedocumented in this encounter Care Teams Software Systems Architect Relationship Specialty Start Date End Date Karen Albarran MD PCP - General 10/21/16 documented as of this encounter
--- OUTSIDE RECORDS SUMMARY | 2025-03-11 14:10 | XMS_ITS | Encounter Summary ---
Author Organization [facility] Address [address] [place] [address] Phone Care Team Providers Care Stone Cutter Name Role Phone Pcp, Unknown Primary Care Provider Keyur Shahid RAIL CAR REPAIRMAN Primary Care Provider +1- [phone] Encounter Details Date Type Department Care Team (Late st Contact Info) Description 11/29/2023 Procedure Pass [facility], Ct Scan - [address] [address] Social History Tobacco Use Types Packs/Day Years [...] on filedocumented in this encounter Care Teams Stone Cutter Relationship Specialty Start Date End Date Pcp, Unknown PCP - General 11/29/23 04/15/24 Keyur Gonzalez NP [address] [place] [address] PCP - General Nurse Practitioner 04/16/24 documented as of this encounter Additional Source Comments The information contained in this document represents components of the legal health record. It is not the complete legal health record.[facility]
== END 2025-03-11 11:53 | disposition home or self-care (01) ==
PROVIDERS: Physician Assistant Medical; Emergency Provider Emergency Medicine; PCP Nurse Practitioner Family
DX: K21.9 Gastro-esophageal reflux disease without esophagitis (principal); R10.10 Upper abdominal pain, unspecified; Z03.818 Encounter for observation for suspected exposure to other biological agents ruled out
CPT/HCPCS: 36415; 76705; 80048; 80076; 83690; 83735; 85025; 87637; 99283; 99284

== ENCOUNTER → 2025-03-11 10:39 | Outpatient (BNV) | payer OTHER, SELFPAY | PROVIDERS: Emergency Provider Emergency Medicine; PCP Nurse Practitioner Family; Visit Provider Radiology Diagnostic Radiology | DX: R10.11 Right upper quadrant pain (principal) | CPT/HCPCS: 76705 ==